=== PATIENT | male | born 1965 ===

== ENCOUNTER → 2020-01-10 15:44 | Outpatient (BNVA) | payer OTHER, SELFPAY | PROVIDERS: PCP Internal Medicine; Referring Provider Internal Medicine; Visit Provider Nurse Practitioner | DX: Z76.89 Persons encountering health services in other specified circumstances (principal) ==

== ENCOUNTER 2020-01-12 09:40 | Outpatient (REF) | payer OTHER, SELFPAY ==
[2020-01-12 10:23] LABS: MANUAL DIFF FLAG NO
[2020-01-12 10:43] LABS: Basophils Percent Auto 0.5 % (0-2); Eosinophils Absolute Auto 0.1 X10*3/uL (0.0-0.4); Eosinophils Percent Auto 1.6 % (0-4); Hematocrit 44.1 % (42-52); Hemoglobin 15.1 g/dl (14.0-18.0); Imm Gran Abs Auto 0.02 X10*3/uL (0.00-0.03); Imm Gran Pct Auto 0.3 % (0.0-0.4); Lymphocytes Absolute Auto 1.7 X10*3/uL (1.2-4.9); Lymphocytes Percent Auto 27.6 % (20-40); Mean Corpuscular HGB Conc 34.2 g/dl (31.0-36.0); Mean Corpuscular Hemoglobin 28.4 pg (27.0-33.0); Mean Corpuscular Volume 83.1 fL (80-98); Mean Platelet Volume 11.2 fL (9.4-12.4); Monocytes Absolute Auto 0.6 X10*3/uL (0.1-1.2); Neutrophils Absolute Auto 3.7 X10*3/uL (2.0-8.3); Platelet Count 245 X10*3/uL (160-400); Red Blood Count 5.31 X10*6/uL (4.60-5.80); Red Cell Distribution Width 13.1 % (11.0-16.0); White Blood Count 6.1 X10*3/uL (4.8-10.8)
[2020-01-12 11:09] LABS: Alanine Aminotransferase 22 U/L (0-40); Albumin Level 3.7 g/dL (3.5-5.0); Alkaline Phosphatase 84 U/L (39-117); Anion Gap 10 (12-20); Aspartate Amino Transferase 15 U/L (5-37); Bilirubin Total 0.5 mg/dL (0.0-1.0); Blood Urea Nitrogen 16 mg/dL (9-16); Calcium 8.2 mg/dL (8.4-10.2); Carbon Dioxide 25 mmol/L (22-29); Chloride 108 mmol/L (96-108); Estimated Glomerular Filt Rate > 60; Glucose Random 106 mg/dL (60-115); Potassium 4.1 mmol/l (3.3-5.1); Sodium 139 mmol/L (135-145); Total Protein 6.5 g/dL (6.5-8.0)
== END 2020-01-12 09:41 | disposition home or self-care (01) ==
LOC: HO.LAB 09:40
PROVIDERS: PCP Internal Medicine; Visit Provider Nurse Practitioner
DX: Z12.11 Encounter for screening for malignant neoplasm of colon (principal)
CPT/HCPCS: 36415; 80053; 85025

== ENCOUNTER 2020-03-24 09:19 | Day surgery (SDC) | payer OTHER, SELFPAY ==
[2020-03-18 13:56] VITALS: BMI 31.4
--- NOTE | 2020-03-21 10:18 | HO.ANESPROP2 ---
HPI - Anesthesia Eval Consult details Narrative: 54yo M for Colonoscopy PMFSH Past Medical History Medical History Allergic rhinitis Anxiety Asthma COVID-19 virus detected Elevated cholesterol GERD (gastroesophageal reflux disease) Sleep apnea Family History Family History Father No problems noted. Mother History of pancreatic cancer Surgical History Surgical History History of colonoscopy Hx of endoscopy Social History Social History Alcohol intake: current Alcohol intake frequency: holidays/special occasions only Smoking Status: Never smoker Meds Allergies Allergy/AdvReac Type Severity Reaction Status Date / Time carrot Allergy Intermediate Altered Verified 03/24/20 09:56 Sense of Taste flour Allergy Intermediate Itching Uncoded 03/18/20 14:04 SEASONAL ALLERGIES Allergy Mild HIVES Uncoded 11/22/19 17:11 Home Medications Medication Instructions Recorded Confirmed Type albuterol sulfate [ProAir HFA] 2 puff PO Q4-6H PRN 03/18/20 03/18/20 History omeprazole 1 cap PO DAILY PRN 03/18/20 03/18/20 History Exam Exam Date and Time: March 21, 2020 1018 Height,Weight and Vital Signs: Height 5 ft 5 in Weight 85.729 kg Pertinent Lab Results Pertinent Lab Results: Laboratory Tests 01/12/20 01/12/20 10:10 10:10 WBC 6.1 Hgb 15.1 Hct 44.1 Plt Count 245 Sodium 139 Potassium 4.1 Chloride 108 Carbon Dioxide 25 BUN 16 Creatinine 0.93 Assessment and Plan Assessment Anesthesia Assessment: Chart Reviewed
--- NOTE | 2020-03-24 09:46 | P.CONAN_ITS ---
[facility] Past Medical History Medical History Allergic rhinitis Anxiety Asthma COVID-19 virus detected Elevated cholesterol GERD (gastroesophageal reflux disease) Sleep apnea Family History Family History Father No problems noted. Mother History of pancreatic cancer Surgical History Surgical History History of colonoscopy Hx of endoscopy Social History Social History Alcohol intake: current Alcohol intake frequency: holidays/special occasions only Smoking Status: Never smoker Use of substances other than those prescribed or required for medical reasons: No Advance Directives Information Provided: No Recently lost weight without trying: No Meds Allergies Allergy/AdvReac Type Severity Reaction Status Date / Time carrot Allergy Intermediate Altered Verified 03/24/20 09:56 Sense of Taste flour Allergy Intermediate Itching Uncoded 03/18/20 14:04 SEASONAL ALLERGIES Allergy Mild HIVES Uncoded 11/22/19 17:11 Home Medications Medication Instructions Recorded Confirmed Type albuterol sulfate [ProAir HFA] 2 puff PO Q4-6H PRN 03/18/20 03/18/20 History omeprazole 1 cap PO DAILY PRN 03/18/20 03/18/20 History Exam Exam Date and Time: March 24, 2020 0946 Height,Weight and Vital Signs: Height 5 ft 5 in Weight 85.729 kg Airway Mallampati Class: II TM Dist: >3cm Neck ROM: Full Heart: RRR Lungs: CTA
[2020-03-24 10:00] VITALS: BP 125/89; PULSE 67; RESP 18; TEMP 36.4; O2SAT 96
--- NOTE | 2020-03-24 10:02 | MHC.SHP ---
Pre-Procedural Eval Section B Chief Complaint: screening Relevant Family History (Specify if Yes): No Relevant Social History: None Present Medications: see Short Stay Collaborative assessment Medical History: Significant History (Allergic rhinitis Anxiety Asthma COVID-19 virus detected Elevated cholesterol GERD (gastroesophageal reflux disease) Sleep apnea) History of Previous Operations: Relevant previous surgery/procedure and date(s) (endoscopy) Allergies: Allergies Allergy/AdvReac Type Severity Reaction Status Date / Time carrot Allergy Intermediate Altered Verified 03/24/20 09:56 Sense of Taste flour Allergy Intermediate Itching Uncoded 03/18/20 14:04 SEASONAL ALLERGIES Allergy Mild HIVES Uncoded 11/22/19 17:11 Review of Systems Sugical H&P ROS: Negative: Constitution, Cardiovascular, Respiratory, Neurological, Psychiatric, Hem-Onc, Allergic/Immunologic, Gastrointestinal, Genitourinary, Musculoskeletal, Integumentary, Endocrine and Eyes/Ears/Nose/Throat Exam Surgical H&P Exam: Normal: HEENT, Normal: Heart, Normal: Lungs, Normal: Extremities, Normal: Abdomen, Normal: Skin and Normal: Neurological Plan Diagnosis/Plan: Unchanged I have reviewed the history and physical and performed a pertinent physical examination on my patient. No changes have occurred unless specified.
--- NOTE | 2020-03-24 10:03 | PM.OP ---
Brief Operative Note Date of Service: 03/24/20 Pre-op diagnosis: colon screen Post-op diagnosis: same Procedure: see op note Surgeon: Lily Colvin MD Anesthesia: MAC Estimated blood loss (mL): 0 Condition: stable Disposition: PACU
--- NOTE | 2020-03-24 10:04 | W.PM.OPN ---
Operative Note Operative Note Date of Service: 03/24/20 Narrative: Operative Information Procedure Description: Colonoscopy COLONOSCOPY Instrument: Olympus variable stiffness pediatric scope 190L Colonoscopy Monitoring: Vital signs and clinical assessment, continuous EKG monitoring, Pulse oximetry, Carbon Dioxide monitoring and blood pressure monitoring were done throughout the procedure. Colon withdrawal time was 7 minutes. Procedure: The patient was placed in the left lateral decubitis position and pre-procedure medications were administered. After a digital rectal examination of the ano-rectum, the video colonoscope was inserted into the rectum and advanced through the colon to the cecum/TI. The colonoscope was slowly withdrawn in a retrograde panoramic fashion and the colon mucosa was carefully examined including a retroflexed view of the rectum. Findings and interventions are described below. Procedure Difficulty:easy Findings: Terminal Ileum-normal Cecum:normal Ascending Colon: normal Transverse Colon -normal Descending Colon:normal Sigmoid Colon: normal Rectum: Retroflexion with small internal hemorrhoids, grade II Anorectum - internal hemorrhoids seen on forward view at verge Colon preparation: [place] Bowel Preparation Scale Right colon; 1 Transverse colon: 2 Left colon; 3 (0 = Unprepared colon segment with mucosa not seen due to solid stool that cannot be cleared. 1 = Portion of mucosa of the colon segment seen, but other areas of the colon segment not well seen due to staining, residual stool and/or opaque liquid. 2 = Minor amount of residual staining, small fragments of stool and/or opaque liquid, but mucosa of colon segment seen well. 3 = Entire mucosa of colon segment seen well with no residual staining, small fragments of stool or opaque liquid) Impression and Post Procedure Diagnosis: internal hemorrhoids Plan: High fiber diet leaflet Avoid straining at stool, epsom salts and sitz bath, anusol supps or cream prn Repeat Colonoscopy in 5-6 years due to prep on right side or earlier if clinically indicated Above findings were reviewed with the patient and relevant handouts were provided if indicated.
[2020-03-24] MEDS: Lactated Ringers 1,000 ML 100 ML IVCONT (10:12)
[2020-03-24 10:46] VITALS: BP 106/72; PULSE 73; RESP 16; TEMP 37.2; O2SAT 97
--- NOTE | 2020-03-24 10:56 | HO.POSTANES ---
Post Anesthesia Evaluation Post Anesthesia Evaluation Vital Signs: Vital Signs Temp Pulse Resp BP Pulse Ox 03/24/20 10:46 98.9 F 73 16 106/72 97 03/24/20 10:00 97.6 F 67 18 125/89 96 Anesthesia: Monitored Mental Status: Awake Pain Control: Satisfactory Nausea/Vomiting: None Hydration: Adequate Anesthesia-Related Issues: No Anes. Related Issues
[2020-03-24 11:01] VITALS: BP 127/86; PULSE 71; RESP 17; TEMP 37.2; O2SAT 96
== END 2020-03-24 11:21 | disposition home or self-care (01) ==
PROVIDERS: PCP Internal Medicine; Visit Provider Internal Medicine Gastroenterology
PROC: 0DJD8ZZ Inspection of Lower Intestinal Tract, Via Natural or Artificial Opening Endoscopic (ICD-10-PCS; CPT 45378; principal; 2020-03-24 10:30)
DX: Z12.11 Encounter for screening for malignant neoplasm of colon (principal); K64.1 Second degree hemorrhoids; J45.909 Unspecified asthma, uncomplicated; G47.33 Obstructive sleep apnea (adult) (pediatric); Z79.899 Other long term (current) drug therapy; Z99.89 Dependence on other enabling machines and devices; Z86.16 Personal history of COVID-19
CPT/HCPCS: 45378

== ENCOUNTER → 2020-04-22 14:06 | Outpatient (BNVA) | payer OTHER, SELFPAY | PROVIDERS: PCP Internal Medicine; Visit Provider Nurse Practitioner ==

== ENCOUNTER 2022-01-01 18:09 | Emergency (ER) | payer OTHER, SELFPAY ==
[2022-01-01 18:14] VITALS: BP 126/83; PULSE 60; RESP 20; TEMP 36.4; O2SAT 98; BMI 28.3
--- NOTE | 2022-01-01 18:58 | ED_ITS ---
HPI - General Adult General Chief complaint: General Medical Stated complaint: mouth pain Time Seen by Provider: 01/01/22 18:58 Source: patient Mode of arrival: ambulatory Limitations: no limitations History of Present Illness HPI narrative: Patient is a 56 year old assigned male at with no reported medical history presenting to the emergency department today with left sided mouth pain. Patient states that he had a root canal on Tuesday and ever since, he has had left sided mouth pain under his tongue. Patient denies any dizziness, lightheadedness, abdominal pain, nausea, vomiting, fever, chills, blurry vision, double vision, loss of vision, chest pain, difficulty breathing, shortness of breath, back pain, night sweats, pain with urination, increased urinary frequency, increased urinary urgency, blood in his urine or stool, syncope or a near syncopal episode, recent trauma or falls, bowel incontinence, bladder incontinence, bowel retention, bladder retention, or any other complaints at this time. Onset (ago): day(s) (4) Location: mouth Radiation: non-radiation Severity: mild Severity scale (1-10): 3 Quality: aching and dull Pain Consistency: constant Relieving factors: none Exacerbating factors: none Associated symptoms: denies other symptoms Treatments prior to arrival: none Related Data Home Medications Medication Instructions Recorded Confirmed albuterol sulfate 90 mcg/actuation 2 puff PO Q4-6H PRN Shortness Of 03/18/20 03/18/20 aerosol inhaler (ProAir HFA) Breath omeprazole 20 mg capsule,delayed 1 cap PO DAILY PRN Heartburn 03/18/20 03/18/20 release Previous Rx's Medication Instructions Recorded peg 3350-electrolytes 236 240 ml PO Q10M #4,000 mL 01/10/20 gram-22.74 gram-6.74 gram-5.86 gram solution (Golytely) hydrocortisone 2.5 % topical cream 1 appl ID BID PRN hemorrhoids #30 04/22/20 with perineal applicator grams (Proctosol HC) Allergies Allergy/AdvReac Type Severity Reaction Status Date / Time carrot Allergy Intermediate Altered Verified 04/22/20 14:06 Sense of Taste flour Allergy Intermediate Itching Uncoded 03/18/20 14:04 SEASONAL ALLERGIES Allergy Mild HIVES Uncoded 11/22/19 17:11 Review of Systems Constitutional: Constitutional: Reports no additional constitutional complaints, Denies chills, Denies fever(s) and Denies night sweats Eyes: Eyes: Reports no additional eye complaints, Denies blurry vision, Denies change in vision, Denies diplopia, Denies eye discharge, Denies loss of vision and Denies eye pain ENT: Denies dizziness Comments: left sided mouth pain Cardiovascular: Cardiovascular: Reports no additional cardiovascular complaints, Denies chest pain, Denies lightheadedness, Denies Loss of Consciousness and Denies dyspnea Respiratory: Respiratory: Reports no additional respiratory complaints and Denies dyspnea Gastrointestinal: Gastrointestinal: Reports no additional gastrointestinal complaints, Denies abdominal pain, Denies melena, Denies hematochezia, Denies change in bowel habits and Denies change in stool character Genitourinary: Genitourinary: Reports no additional male genitourinary complaints, Denies hematuria, Denies oliguria, Denies difficulty urinating, Denies dysuria, Denies urinary frequency, Denies urinary hesitancy, Denies urinary incontinence and Denies urinary urgency Musculoskeletal: Musculoskeletal: Reports no additional musculoskeletal complaints, Denies numbness and Denies tingling Neurologic: Denies dizziness, Denies loss of vision, Denies numbness and Denies tingling Psychiatric: Psychiatric: Reports no additional psychiatric complaints Endocrine: Endocrine: Reports no additional endocrine complaints Hematologic/Lymphatic: Hematologic/Lymphatic: Reports no additional hematologic/lymphatic complaints Allergic/Immunologic: Allergic/Immunologic: Reports no additional allergic/immunologic complaints [facility] Past Medical History Attestation statement: The following information was validated with the patient. Source: old records reviewed Medical History (Updated 01/01/22 @ 19:17 by JENNIFER Canchola) Allergic rhinitis Anxiety Asthma COVID-19 virus detected Elevated cholesterol GERD (gastroesophageal reflux disease) Sleep apnea Surgical History History of colonoscopy Hx of endoscopy Family History Family History Father No problems noted. Mother History of pancreatic cancer Social History Social History Alcohol intake: current Alcohol intake frequency: holidays/special occasions only Advance Directives: No Advance Directives Information Provided: No Physical Exam ED Vital Signs: Vital Signs - 24 hr 01/01/22 18:14 Temperature 97.6 F Pulse Rate 60 Respiratory Rate 20 Blood Pressure 126/83 Pulse Oximetry 98 Oxygen Delivery Method Room Air BMI result Body Mass Index 28.3 Const General: cooperative, no acute distress, alert and awake Nutritional Appearance: well nourished Orientation/consciousness: patient oriented x3 Limitations: no limitations HENMT Head: Yes normal to inspection and Yes atraumatic Ears: hearing grossly normal bilaterally and external ears normal General nose exam: Normal external nose present, no nasal discharge noted and no epistaxis Face and sinus: Yes normal facial exam, No abrasion and No laceration Mouth: Normal oral and palatal mucosa present, no drooling, no muffled voice and other (swollen salivary duct felt in left lower mouth) Eyes General: appearance normal, both eyes and all related structures Periorbital: periorbital findings normal Eyelids: Yes eyelids normal Conjunctivae: conjunctivae normal Pupils: Equal, round and reactive pupils present EOM: EOMs intact bilaterally Neck Neck: Yes normal visual inspection, Yes full ROM and Yes no lymphadenopathy Chest Chest palpation & inspection: normal inspection of the chest Resp Effort & Inspection: normal respiratory effort and able to speak in complete sentences Auscultation: clear to auscultation bilaterally Cardio Rate: regular rate Rhythm: regular rhythm GI Inspection: Yes normal to inspection Neuro General: patient oriented x3 and moves all extremities Cranial nerves: Yes Equal, round and reactive pupils present Cognition (Neuro): normal cognition Motor exam (neuro): 5/5 motor strength present throughout Sensory Exam: Normal double simultaneous stimulation for sensation Coordination: [id number] test normal Extrem General: Yes normal to inspection, Yes full ROM and Yes capillary refill normal Psych Appearance: grossly normal Mental Status: mental status grossly normal Affect: normal affect Attitude: cooperative Thought process: Normal thought process present Thought content: Normal thought content present Insight: Good insight present (Psych) Medical Decision Making MDM Narrative Medical decision making narrative: Patient is a 56 year old assigned male at with no reported medical history presenting to the emergency department today with left sided mouth pain. Patient's physical exam showed a swollen salivary duct in the left lower mouth, not big enough to manually express. Patient's current clinical presentation is most consistent with a salivary duct / parotid duct obstruction vs. stone. I explained my physical exam findings to the patient. I answered all questions asked by the patient. I stressed the importance of the patient taking his medication as prescribed. I stressed the importance of the patient sucking on sour candies. I stressed the importance of the patient following up with his primary care provider and a dentist. I stressed the importance of the patient returning to the emergency department immediately if his symptoms were to worsen or if he were to develop any dizziness, shortness of breath, difficulty breathing, chest pain, blurry vision, loss of vision, nausea, vomiting, ab dominal pain, fever, chills, back pain, or any other complaints. Patient verbalized agreement and understanding with this treatment plan and discharge. Medical Records Medical records reviewed: Yes I reviewed the patient's medical records. Discharge Plan Discharge Clinical Impression: Salivary duct stone Patient Disposition: Home, Self-Care Instructions: Parotid Duct Obstruction (ED) Additional Instructions: Suck on very sour hard candy. Follow up with your primary care provider. Return to the emergency department immediately if your symptoms worsen or if you develop any dizziness, shortness of breath, difficulty breathing, chest pain, bl urry vision, loss of vision, nausea, vomiting, abdominal pain, fever, chills, back pain, or any other complaints. Prescriptions: No Action omeprazole 20 mg capsule,delayed release(DR/EC) 1 cap PO DAILY PRN (Reason: Heartburn) albuterol sulfate [ProAir HFA] 90 mcg/actuation HFA aerosol inhaler 2 puff PO Q4-6H PRN (Reason: Shortness Of Breath) peg 3350-electrolytes [Golytely] 236-22.74-6.74 -5.86 gram recon soln 240 ml PO Q10M Qty: 4000 0RF Rx Instructions: until fecal effluent is clear; do not exceed a total volume of 2,000 mL hydrocortisone [Proctosol HC] 2.5 % cream with perineal applicator 1 appl ID BID PRN (Reason: hemorrhoids) Qty: 30 3RF Referrals: [facility] [place] Family Medicine [Provider Group] (Call to establish and follow up with a primary care provider. If you already have a primary care provider, please follow up with them. ) [facility] [place] Primary [facility] [Provider Group] (Call to establish and follow up with a primary care provider. If you already have a primary care provider, please follow up with them. ) [facility] [place] Primary Care[facility] [Provider Group] (Call to establish and follow up with a primary care provider. If you already have a primary care provider, please follow up with them. ) Stand Alone Forms: Work/School Release Interventions: ED Discharge Assessment Last Done: 01/01/22 19:39 Discharge Date/Time: 01/01/22 19:42 Print Language: Serbian
== END 2022-01-01 19:42 | disposition home or self-care (01) ==
PROVIDERS: Emergency Provider Emergency Medicine Emergency Medical Services; PCP Internal Medicine
DX: K11.5 Sialolithiasis (principal); K13.79 Other lesions of oral mucosa
CPT/HCPCS: 99282

== ENCOUNTER 2022-08-21 19:47 | Emergency (ER) | payer OTHER, SELFPAY ==
--- NOTE | ~2022-08-21 | CT_ITS ---
EXAMINATION: CT ABDOMEN AND PELVIS WITHOUT CONTRAST CLINICAL INFORMATION: Left flank pain, hematuria. COMPARISON: Abdominal ultrasound 09/04/2009. TECHNIQUE: Multidetector volumetric imaging was performed from the superior aspect of the liver through the pubic symphysis. Sagittal and coronal reformatted images were obtained on the technologist's workstation. This CT examination was performed using dose optimization techniques as appropriate, variously including the following: *Automated exposure control *Adjustment of mA and/or kV according to patient size (this includes techniques or standardized protocols for targeted exams where dose is matched to indication/reason for exam; i.e. extremities or head) *Use of iterative reconstruction technique DLP: 543 mGy-cm FINDINGS: The lack of intravenous contrast limits evaluation of the solid visceral organs including the liver, spleen, pancreas, and kidneys. LUNG BASES: There is a 0.6 cm right middle lobe pulmonary nodule image 29 series 4. No focal consolidation or pleural effusion. LIVER, GALLBLADDER, AND BILIARY TREE: Multiple liver cysts with several additional too small to characterize liver hypodensities. The liver is normal in size, shape and attenuation. Partially calcified gallbladder calculus in the neck measuring 2 cm. No significant pericholecystic fat stranding or free fluid. No biliary ductal dilatation. PANCREAS: Limited noncontrast examination. No peripancreatic free fluid or fat stranding. SPLEEN: Unremarkable. ADRENAL GLANDS: Unremarkable. KIDNEYS AND URETERS: No hydronephrosis or nephrolithiasis. No perivesical fat stranding. BLADDER: Diffuse urinary bladder wall thickening. GASTROINTESTINAL TRACT: The stomach and the small bowel are nondilated. Normal appendix. No pericolonic inflammatory changes or evidence of bowel obstruction. Fecalization of the small bowel. Moderate degree of colonic stool content. ABDOMINAL WALL: Small fat-containing left-sided inguinal hernia. LYMPH NODES: No lymphadenopathy. VASCULAR: Limited noncontrast examination. Normal caliber of the abdominal aorta. PELVIC VISCERA: Enlarged prostate. OSSEOUS STRUCTURES: Degenerative changes of the spine. No acute or aggressive appearing osseous abnormalities. CT/CT abdomen pelvis wo IV con IMPRESSION: 1. No nephrolithiasis or hydronephrosis. 2. Diffuse urinary bladder wall thickening, correlate clinically for cystitis. 3. Enlarged prostate. 4. Fecalization of the small bowel and moderate volume of stool in the colon suggesting slow transit and constipation. 5. Cholelithiasis but no evidence of acute cholecystitis. 6. Liver cysts admixed with too small to characterize hypodensities, statistically also favoring to represent simple cysts. If the patient presents high risk factors for malignancy, further evaluation with an and abdominal MRI could be obtained as clinically indicated. 7. Indeterminate 0.6 cm right middle lobe pulmonary nodule. Assuming patient has no history of malignancy, recommend follow-up per Fleischner Society recommendations. According to the UPDATED 2017 Fleischner Society recommendations, the advised followup imaging for a single 6-8 mm solid nodule is: LOW RISK PATIENT: CT at 6-12 months, then consider CT at 18-24 months. HIGH RISK PATIENT: CT at 6-12 months, then at 18-24 months. Fleischner guidelines were followed.
[2022-08-21 19:47] VITALS: BP 147/92; PULSE 84; RESP 18; TEMP 36.6; O2SAT 97; BMI 28.3
--- NOTE | 2022-08-21 19:48 | ED.GENADULT ---
HPI - General Adult General Chief complaint: Urogenital-Male Stated complaint: bleeding in urine Time Seen by Provider: 08/21/22 20:47 Source: patient Mode of arrival: ambulatory Limitations: no limitations History of Present Illness HPI narrative: Patient comes emergency room complaining of 1 episode of hematuria. Patient states that earlier today, patient had 1 episode of painless hematuria. At this time, patient is asymptomatic. Patient denies abdominal pain or flank pain at this time. Patient states that he has noted a bit of right-sided back pain but is mild. Patient unsure if it is flank pain. Patient states that it usually happens after eating. Denies any right upper quadrant pain. Denies fever and chills Related Data Home Medications Medication Instructions Recorded Confirmed albuterol sulfate 90 mcg/actuation 2 puff PO Q4-6H PRN Shortness Of 03/18/20 03/18/20 aerosol inhaler (ProAir HFA) Breath omeprazole 20 mg capsule,delayed 1 cap PO DAILY PRN Heartburn 03/18/20 03/18/20 release Previous Rx's Medication Instructions Recorded peg 3350-electrolytes 236 240 ml PO Q10M #4,000 mL 01/10/20 gram-22.74 gram-6.74 gram-5.86 gram solution (Golytely) hydrocortisone 2.5 % topical cream 1 appl [place] BID PRN hemorrhoids #30 04/22/20 with perineal applicator grams (Proctosol HC) levofloxacin 500 mg tablet 500 mg PO DAILY #9 tabs 08/21/22 Allergies Allergy/AdvReac Type Severity Reaction Status Date / Time carrot Allergy Intermediate Altered Verified 04/22/20 14:06 Sense of Taste flour Allergy Intermediate Itching Uncoded 03/18/20 14:04 SEASONAL ALLERGIES Allergy Mild HIVES Uncoded 11/22/19 17:11 Review of Systems Review of Systems: Constitutional : No Weight loss, No Fever, No Chills, No Night Sweats, No Fatigue, No Malaise ENT/Mouth : No Hearing loss, No Ear Pain, No Nasal Congestion, No Sinus Pain, No Hoarseness, No sore throat, No Rhinorrhea, No Swallowing Difficulty Eyes: No Eye Pain, No Swelling, No Redness, No Foreign Body, No Discharge, No Vision Changes Cardiovascular : No Chest Pain, No SOB, No Dyspnea on Exertion, No Orthopnea, No Edema, No Palpitations Respiratory : No Cough, No Sputum, No Wheezing, No Smoke Exposure, No Dyspnea Gastrointestinal : No Nausea, No Vomiting, No Diarrhea, No Constipation, No abdominal Pain, No Hematochezia, No Melena Genitourinary :No Dysuria, No Urinary Frequency, complaining of Hematuria, No Urinary Incontinence, No Urgency, complaining of mild right-sided Flank Pain, No Urinary Flow Changes, No Hesitancy Musculoskeletal : No joint pain, No Myalgias, No Joint Swelling Skin : No Skin Lesions, No rash Neuro : No Weakness, No Numbness, No Paresthesias, No Loss of Consciousness, No Dizziness, No Headache Psych : No Anxiety/Panic, No Depression, No SI/HI/AH/VH, No Social Issues, Heme/Lymph: No Bruising, No Bleeding,No Lymphadenopathy Endocrine : No Polyuria, No Polydipsia, No Temperature Intolerance [facility] Past Medical History Medical History Allergic rhinitis Anxiety Asthma COVID-19 virus detected Elevated cholesterol GERD (gastroesophageal reflux disease) Sleep apnea Surgical History History of colonoscopy Hx of endoscopy Family History Family History Father No problems noted. Mother History of pancreatic cancer Social History Social History Alcohol intake: current Alcohol intake frequency: holidays/special occasions only Advance Directives: No Advance Directives Information Provided: No Physical Exam ED Vital Signs: Vital Signs - 24 hr 08/21/22 19:47 Temperature 98 F Pulse Rate 84 Respiratory Rate 18 Blood Pressure 147/92 H Pulse Oximetry 97 Oxygen Delivery Method Room Air BMI result Body Mass Index 28.3 Const Other: Appearance: Alert. Oriented X3. No acute distress. Eyes: Pupils equal, round and reactive to light. ENT: Pharynx normal. Neck: Normal inspection. Neck supple. No lymph nodes noted. No crepitus CVS: Normal heart rate and rhythm. Pulses normal. Normal S1 and S2 Respiratory: No respiratory distress. Breath sounds normal. No Wheezing. No rales Abdomen: Soft and nontender. No rigidity. No distention. Skin: Skin warm and dry. Normal skin color. Normal skin turgor. Extremities: No lower extremity edema. No Lacerations. No Rash Neuro: Oriented X 3. No motor deficit. No sensory deficit. Moving all extremities. No slurred speech. CN 2 through 12 grossly intact Psych: calm, cooperative, normal affect Course Course Course Narrative: This is an RME: Additional HPI, ROS, PE not included below will be deferred to primary provider. 57-year-old male presents with blood in urine, 1 episode prior to arrival, reports large amount of blood. Denying any pain at this time. Denies urinary frequency, urgency, dysuria, fevers, chills, flank pain, nausea, vomiting, abdominal pain, headache, vision changes, chest pain and shortness of breath. Patient anxious appearing Plan basic labs, UA Medical Decision Making Medical Decision Making [facility] Narrative: -I discussed the CT scan with the patient, patient likely has cystitis, possibly a mild UTI. Given the patient's presentation, we will go ahead and treat for UTI. -patient instructed to follow up with Urology, patient may need a biopsy if the hematuria does not resolve. -also, I discussed with the patient that he has nodules/cysts in the lungs and liver, from the CT scan they seem to be benign. However, discussed with the patient he needs very close follow-up with his primary care physician, as patient may need an MRI. Patient understands the importance of following up with his primary care physician. -patient was given the 1st dose of levofloxacin in the emergency room Lab Data [facility] Lab Attestation statement: I reviewed the patient's lab results. 08/21/22 20:23 08/21/22 20:23 Labs: Lab Results 08/21/22 08/21/22 08/21/22 Range/Units 20:23 20:23 20:23 WBC 6.9 (4.8-10.8) X10*3/uL RBC 5.31 (4.60-5.80) X10*6/uL Hgb 14.8 (14.0-18.0) g/dl Hct 43.8 (42.0-52.0) % MCV 82.5 (80.0-98.0) fL MCH 27.9 (27.0-33.0) pg MCHC 33.8 (31.0-36.0) g/dl RDW 12.8 (11.0-16.0) % Plt Count 250 (160-400) X10*3/uL MPV 10.4 (9.4-12.4) fL Immature Gran % (Auto) 0.1 (0.0-0.4) % Neut % (Auto) 53.5 (45-73) % Lymph % (Auto) 32.9 (20-40) % [place] % (Auto) 10.8 (2-11) % Eos % (Auto) 2.0 (0-4) % Baso % (Auto) 0.7 (0-2) % Lymph # (Auto) 2.3 (1.2-4.9) X10*3/uL [place] # (Auto) 0.8 (0.1-1.2) X10*3/uL Eos # (Auto) 0.1 (0.0-0.4) X10*3/uL Baso # (Auto) 0.1 (0.0-0.2) X10*3/uL Abs Immat Gran (auto) 0.01 (0.00-0.03) X10*3/uL Absolute Neuts (auto) 3.7 (2.0-8.3) x10*3/uL Absolute Nucleated RBC 0.000 (0.0-0.012) X10*3/uL Nucleated RBC % (auto) 0.0 (0.0-0.2) /100WBC Sodium 138 (135-145) mmol/L Potassium 3.7 (3.3-5.1) mmol/L Chloride 107 (96-108) mmol/L Carbon Dioxide 22 (22-29) mmol/L Anion Gap 13 (12-20) BUN 18 H (9-16) mg/dL Creatinine 1.01 (0.5-1.4) mg/dL Estim Creat Clear Calc 78.2 Estimated GFR > 60 Random Glucose 96 (60-115) mg/dL Calcium 9.6 D (8.4-10.2) mg/dL Magnesium 2.0 (1.6-2.6) mg/dL Total Bilirubin 0.4 (0.0-1.0) mg/dL AST 15 (5-37) U/L ALT 17 (0-40) U/L Alkaline Phosphatase 83 (39-117) U/L Total Protein 6.6 (6.5-8.0) g/dL Albumin 3.5 (3.5-5.0) g/dL Urine Color Yellow Urine Appearance Clear Urine pH 5.5 (5.0-9.0) Ur Specific [place] 1.025 (1.005-1.025) Urine Protein Trace (Neg-Trace) mg/dL Urine Glucose (UA) Negative (Negative) mg/dL Urine Ketones Trace (Negative) mg/dL Urine Blood Large (3+) H (Negative) Urine Nitrite Negative (Negative) Ur Leukocyte Esterase Trace H (Negative) Urine RBC >20 H (0-2) /HPF Urine WBC 0-5 (0-5) /HPF Ur Squamous Epith Cells 0-2 (0-2) /HPF Urine Bacteria None Seen (None Seen) Hyaline Casts 0-2 (0-2) /LPF Radiology Impression Discussion of test interpretation with radiology: I have reviewed the radiologist's reading. Radiologist Impression: FINDINGS: The lack of intravenous contrast limits evaluation of the solid visceral organs including the liver, spleen, pancreas, and kidneys. LUNG BASES: There is a 0.6 cm right middle lobe pulmonary nodule image 29 series 4. No focal consolidation or pleural effusion.? LIVER, GALLBLADDER, AND BILIARY TREE: Multiple liver cysts with several additional too small to characterize liver hypodensities. The liver is normal in size, shape and attenuation. Partially calcified gallbladder calculus in the neck measuring 2 cm. No significant pericholecystic fat stranding or free fluid. No biliary ductal dilatation.? PANCREAS: Limited noncontrast examination. No peripancreatic free fluid or fat stranding.? SPLEEN: Unremarkable.? ADRENAL GLANDS: Unremarkable.? KIDNEYS AND URETERS: No hydronephrosis or nephrolithiasis. No perivesical fat stranding.? BLADDER: Diffuse urinary bladder wall thickening.? GASTROINTESTINAL TRACT: The stomach and the small bowel are nondilated. Normal appendix. No pericolonic inflammatory changes or evidence of bowel obstruction. Fecalization of the small bowel. Moderate degree of colonic stool content.? ABDOMINAL WALL: Small fat-containing left-sided inguinal hernia.? LYMPH NODES: No lymphadenopathy. VASCULAR: Limited noncontrast examination. Normal caliber of the abdominal aorta. PELVIC VISCERA: Enlarged prostate.? OSSEOUS STRUCTURES: Degenerative changes of the spine. No acute or aggressive appearing osseous abnormalities.? CT/CT abdomen pelvis wo IV con IMPRESSION: 1.? No nephrolithiasis or hydronephrosis. 2.? Diffuse urinary bladder wall thickening, correlate clinically for cystitis. 3.? Enlarged prostate. 4.? Fecalization of the small bowel and moderate volume of stool in the colon suggesting slow transit and constipation. 5.? Cholelithiasis but no evidence of acute cholecystitis. 6.? Liver cysts admixed with too small to characterize hypodensities, statistically also favoring to represent simple cysts. If the patient presents high risk factors for malignancy, further evaluation with an and abdominal MRI could be obtained as clinically indicated. 7.? Indeterminate 0.6 cm right middle lobe pulmonary nodule. Assuming patient has no history of malignancy, recommend follow-up per Fleischner Society recommendations. According to the UPDATED 2017 Fleischner Society recommendations, the advised followup imaging for a single 6-8 mm solid nodule is: LOW RISK PATIENT: CT at 6-12 months, then consider CT at 18-24 months. HIGH RISK PATIENT: CT at 6-12 months, then at 18-24 months. ? Fleischner guidelines were followed. Discharge Plan Discharge Clinical Impression: Hematuria, Acute UTI Patient Disposition: Home, Self-Care Instructions: Urinary Tract Infection in Men (ED), Hematuria (ED) Additional Instructions: Please follow-up with your primary care physician tomorrow. You have multiple cysts in lungs and the liver, likely to be benign. However, you need close follow-up with her primary care physician. If you have any worsening or new symptoms, please return to the emergency room or call 911 Prescriptions: New levofloxacin 500 mg tablet 500 mg PO DAILY Qty: 9 0RF No Action omeprazole 20 mg capsule,delayed release(DR/EC) 1 cap PO DAILY PRN (Reason: Heartburn) albuterol sulfate [ProAir HFA] 90 mcg/actuation HFA aerosol inhaler 2 puff PO Q4-6H PRN (Reason: Shortness Of Breath) peg 3350-electrolytes [Golytely] 236-22.74-6.74 -5.86 gram recon soln 240 ml PO Q10M Qty: 4000 0RF Rx Instructions: until fecal effluent is clear; do not exceed a total volume of 2,000 mL hydrocortisone [Proctosol HC] 2.5 % cream with perineal applicator 1 appl [place] BID PRN (Reason: hemorrhoids) Qty: 30 3RF Referrals: Landon Pierson MD [Physician] - 08/23/22
[2022-08-21 20:27] LABS: MANUAL DIFF FLAG NO
[2022-08-21 20:33] LABS: Appearance Urine Clear; Color Urine Yellow; Glucose Urine UA Negative (Negative); Leukocyte Esterase Urine Trace (Negative); Nitrite Urine Negative (Negative); PH 5.5 (5.0-9.0); Specific Gravity - Urine 1.025 (1.005-1.025); UMIC TRIGGER UACC YES; Urine Blood Large (3+) (Negative); Urine Ketones Trace mg/dL (Negative); Urine Protein Trace mg/dL (Neg-Trace)
[2022-08-21 20:34] LABS: Basophils Absolute Auto 0.1 X10*3/uL (0.0-0.2); Basophils Percent Auto 0.7 % (0-2); Eosinophils Absolute Auto 0.1 X10*3/uL (0.0-0.4); Hematocrit 43.8 % (42.0-52.0); Hemoglobin 14.8 g/dl (14.0-18.0); Imm Gran Abs Auto 0.01 X10*3/uL (0.00-0.03); Imm Gran Pct Auto 0.1 % (0.0-0.4); Lymphocytes Absolute Auto 2.3 X10*3/uL (1.2-4.9); Lymphocytes Percent Auto 32.9 % (20-40); Mean Corpuscular HGB Conc 33.8 g/dl (31.0-36.0); Mean Corpuscular Hemoglobin 27.9 pg (27.0-33.0); Mean Corpuscular Volume 82.5 fL (80.0-98.0); Mean Platelet Volume 10.4 fL (9.4-12.4); Monocytes Absolute Auto 0.8 X10*3/uL (0.1-1.2); Monocytes Percent Auto 10.8 % (2-11); Neutrophils Absolute Auto 3.7 x10*3/uL (2.0-8.3); Neutrophils Percent Auto 53.5 % (45-73); Platelet Count 250 X10*3/uL (160-400); Red Blood Count 5.31 X10*6/uL (4.60-5.80); Red Cell Distribution Width 12.8 % (11.0-16.0); White Blood Count 6.9 X10*3/uL (4.8-10.8)
[2022-08-21 20:38] LABS: Bacteria Urine None Seen (None Seen); Hyaline Casts Urine 0-2 /LPF (0-2); RBC Urine >20 /HPF (0-2); Squamous Epithelial Cell Urine 0-2 /HPF (0-2); WBC Urine 0-5 /HPF (0-5)
[2022-08-21 20:50] LABS: Alanine Aminotransferase 17 U/L (0-40); Albumin Level 3.5 g/dL (3.5-5.0); Alkaline Phosphatase 83 U/L (39-117); Anion Gap 13 (12-20); Aspartate Amino Transferase 15 U/L (5-37); Bilirubin Total 0.4 mg/dL (0.0-1.0); Blood Urea Nitrogen 18 mg/dL (9-16); Calcium 9.6 mg/dL (8.4-10.2); Carbon Dioxide 22 mmol/L (22-29); Chloride 107 mmol/L (96-108); Creatinine Clr Calc Pharmacy 78.2; Estimated Glomerular Filt Rate > 60; Glucose Random 96 mg/dL (60-115); Potassium 3.7 mmol/L (3.3-5.1); Sodium 138 mmol/L (135-145); Total Protein 6.6 g/dL (6.5-8.0)
[2022-08-22] MEDS: levoFLOXacin 500 MG TABLET PO (00:36)
[2022-08-22 00:37] VITALS: BP 121/86; PULSE 66; RESP 18; TEMP 36.5; O2SAT 97
--- NOTE | 2022-08-22 00:50 | PC.NURSE ---
pt medicated according to [facility]. pt daughter at bedside at this time. pt reports no pain./ vss. pt ambulatory. pt provided with discharge packet. pt verbalized understanding of discharge plan
== END 2022-08-22 00:52 | disposition home or self-care (01) ==
PROVIDERS: Physician Assistant; Emergency Provider Emergency Medicine; PCP Internal Medicine
DX: N39.0 Urinary tract infection, site not specified (principal); R31.9 Hematuria, unspecified; Z79.899 Other long term (current) drug therapy
CPT/HCPCS: 36415; 74176; 80053; 81001; 83735; 85025; 99284

== ENCOUNTER 2022-09-08 11:06 | Outpatient (REF) | payer OTHER, SELFPAY ==
[2022-09-08 13:06] LABS: Alanine Aminotransferase 27 U/L (0-40); Albumin Level 3.3 g/dL (3.5-5.0); Alkaline Phosphatase 83 U/L (39-117); Anion Gap 12 (12-20); Aspartate Amino Transferase 20 U/L (5-37); Bilirubin Direct 0.2 mg/dL (0.0-0.5); Bilirubin Total 0.5 mg/dL (0.0-1.0); Blood Urea Nitrogen 17 mg/dL (9-16); Calcium 8.8 mg/dL (8.4-10.2); Carbon Dioxide 24 mmol/L (22-29); Chloride 108 mmol/L (96-108); Cholesterol 224 mg/dL; Estimated Glomerular Filt Rate > 60; Glucose Random 98 mg/dL (60-115); HDL Cholesterol 61 mg/dL; LDL Cholesterol Calculated 144 mg/dl; Potassium 3.8 mmol/L (3.3-5.1); Sodium 140 mmol/L (135-145); Total Protein 6.5 g/dL (6.5-8.0); Triglycerides 99 mg/dL
[2022-09-08 13:23] LABS: Vitamin D 25-OH Total 40.1 ng/mL (>30)
== END 2022-09-08 11:07 | disposition home or self-care (01) ==
LOC: HO.LAB 11:06
PROVIDERS: PCP Internal Medicine; Visit Provider Internal Medicine
DX: Z00.00 Encounter for general adult medical examination without abnormal findings (principal); Z20.2 Contact with and (suspected) exposure to infections with a predominantly sexual mode of transmission; E78.5 Hyperlipidemia, unspecified
CPT/HCPCS: 36415; 80048; 80061; 80076; 82306; 83036; 85025; 86803; 87389

== ENCOUNTER 2022-09-23 15:13 | Outpatient (AMB) | payer OTHER, SELFPAY ==
--- NOTE | 2022-09-23 11:20 | A.OFFVIS_ITS ---
Intake Intake Visit Reasons: ED Follow uphematuria/bladder wall thickening Intake Note: NEW Patient presents today to established treatment for Hematuria & Bladder Wall Thickening: Meds- None Allergies to Antibiotic- No Known Allergies Blood Thinner- None PVR- 73ml Seat Builder Required: Yes Seat Builder Language: Voice And Data Technician Name: Aramis Cain, SHADI/DOMINIK Buckley Accompanied by: Self / Same As Patient Allergies carrot Allergy (Intermediate, Verified 10/20/22 14:13) Altered Sense of Taste flour Allergy (Intermediate, Uncoded 10/20/22 14:13) Itching SEASONAL ALLERGIES Allergy (Mild, Uncoded 10/20/22 14:13) HIVES HPI HPI Comments History of Present Illness Details Jose Maria is a 57-year-old male who presents today to the office as a new patient evaluation for hematuria and bladder wall thickening. 09/23/2022-- The patient is a 57-year-old canadian speaking male. Certified drafter landscape was present during the visit. The patient was seen in the ED on 08/21/22 with a complaint of hematuria. He states that he had acute episode of having a flushed feeling and a strong urge to use the bathroom. When he urinated, there was blood in the urine and it felt like a pressure was being released with the urination that was different sensation than he normally gets when he urinates. He increased his fluids and had persistent blood in the urine for the next few voids. So, he went to the emergency room. Once he got to the emergency room, he stated there was no visible blood in the urine. I did review the emergency room records. He was discharged on Levaquin. I did not see a urine culture sent. It is unclear if he had any UTI; however, he denies any pain associated with the episodes. I have discussed reasons for blood in the urine may include but are not limited to kidney stones, cancer in the urinary tract, BPH, kidney stone disease or inflammatory conditions of the urinary tract. Results reviewed: CAT scan on 08/21/22. No stones or hydronephrosis noted. Prostate is enlarged. There is diffuse urinary bladder wall thickening noted. Evaluation today-- On examination, testicles are normal. prostate exam limited, but no hard nodules palpated. Plan: At this time, further work-up would include office cystoscopy and PSA screening. The patient is agreeable to the plan. We will check a PSA. Follow up for office cystoscopy. [facility] Medical History Allergic rhinitis Anxiety Asthma COVID-19 virus detected Elevated cholesterol GERD (gastroesophageal reflux disease) Sleep apnea Surgical History History of colonoscopy Hx of endoscopy Family History Father No problems noted. Mother History of pancreatic cancer Social History Alcohol intake: current Alcohol intake frequency: holidays/special occasions only Patient Tobacco Use Status: Never used Tobacco Review of Systems Const All systems reviewed & are unremarkable except as noted in HPI and below Reports no additional complaints Eyes Reports no additional complaints ENT Reports no additional complaints Card Denies dyspnea Resp Denies cough and Denies dyspnea GI Reports no additional complaints Musc Reports no additional complaints Skin/Breast Denies rash and Denies unusual bruising Neuro Reports no additional complaints Psych Reports no additional complaints Endo Reports no additional complaints Donato/Lymph Reports no additional complaints Aller/Immun Reports no additional complaints Physical Exam Const General: healthy appearing, no acute distress and well developed Orientation/consciousness: patient oriented x3 HEENT Head: Yes normocephalic and Yes atraumatic Eyes Conjunctivae: conjunctivae normal Neck Neck: Yes normal visual inspection Chest Chest palpation & inspection: normal inspection of the chest Resp Effort & Inspection: normal respiratory effort Cardio Rate: regular rate GI Inspection: Yes normal to inspection Other: prostate exam - limited Penis: normal penis Scrotum: scrotum normal Skin General skin exam: no rashes or lesions noted Neuro General: patient oriented x3 Extrem General: No pedal edema Psych Appearance: grossly normal Affect: normal affect Office Procedures Post Void Residual Post Residual Void Post Void Residual (PVR): [id number] Void Residual by ultrasound Results AMB Urinalysis, Automated UA Leukoctes 0 Kranthi/uL Last Edit by Molina Cain Marck on 09/23/22 15:54 UA Nitrite Negative Last Edit by Molina Cain, [facility] on 09/23/22 15:54 UA Urobilinogen 0.2 mg/dL Last Edit by Molina Cain [facility] on 09/23/22 15:5 4 UA Protein 0 mg/dL Last Edit by Molina Cain [facility] on 09/23/22 15:54 UA pH 6.0 Last Edit by Molina Cain [facility] on 09/23/22 15:54 UA Blood 0 Victor Hugo/uL Last Edit by Molina Cain [facility] on 09/23/22 15:54 UA Specific [place] 1.010 Last Edit by Molina Cain [facility] on 09/23/22 15: 54 UA Ketone Negative Last Edit by Molina Cain [facility] on 09/23/22 15:54 UA Bilirubin 0 mg/dL Last Edit by Molina Cain [facility] on 09/23/22 15:54 UA Glucose 0 mg/dL Last Edit by Molina Cain [facility] on 09/23/22 15:54 Results Reviewed Results Reviewed: Laboratory Last Values Urine pH (Auto) 6.0 09/23/22 15:41 Specific [place] (Auto) 1.010 09/23/22 15:41 Urine Protein (Auto) 0 mg/dL 09/23/22 15:41 Glucose (UA)(Auto) 0 mg/dL 09/23/22 15:41 Urine Ketones (Auto) Negative 09/23/22 15:41 Urine Blood (Auto) 0 Victor Hugo/uL 09/23/22 15:41 Urine Nitrite (Auto) Negative 09/23/22 15:41 Urine Bilirubin (Auto) 0 mg/dL 09/23/22 15:41 Urine Urobilinogen (Auto) 0.2 mg/dL 09/23/22 15:41 Leukocyte Esterase (Auto) 0 Kranthi/uL 09/23/22 15:41 Date: 08/21/22 FINDINGS: The lack of intravenous contrast limits evaluation of the solid visceral organs including the liver, spleen, pancreas, and kidneys. LUNG BASES: There is a 0.6 cm right middle lobe pulmonary nodule image 29 series 4. No focal consolidation or pleural effusion.? LIVER, GALLBLADDER, AND BILIARY TREE: Multiple liver cysts with several additional too small to characterize liver hypodensities. The liver is normal in size, shape and attenuation. Partially calcified gallbladder calculus in the neck measuring 2 cm. No significant pericholecystic fat stranding or free fluid. No biliary ductal dilatation.? PANCREAS: Limited noncontrast examination. No peripancreatic free fluid or fat stranding.? SPLEEN: Unremarkable.? ADRENAL GLANDS: Unremarkable.? KIDNEYS AND URETERS: No hydronephrosis or nephrolithiasis. No perivesical fat stranding.? BLADDER: Diffuse urinary bladder wall thickening.? GASTROINTESTINAL TRACT: The stomach and the small bowel are nondilated. Normal appendix. No pericolonic inflammatory changes or evidence of bowel obstruction. Fecalization of the small bowel. Moderate degree of colonic stool content.? ABDOMINAL WALL: Small fat-containing left-sided inguinal hernia.? LYMPH NODES: No lymphadenopathy. VASCULAR: Limited noncontrast examination. Normal caliber of the abdominal aorta. PELVIC VISCERA: Enlarged prostate.? OSSEOUS STRUCTURES: Degenerative changes of the spine. No acute or aggressive appearing osseous abnormalities. IMPRESSION: 1.? No nephrolithiasis or hydronephrosis. 2.? Diffuse urinary bladder wall thickening, correlate clinically for cystitis. 3.? Enlarged prostate. 4.? Fecalization of the small bowel and moderate volume of stool in the colon suggesting slow transit and constipation. 5.? Cholelithiasis but no evidence of acute cholecystitis. 6.? Liver cysts admixed with too small to characterize hypodensities, statistically also favoring to represent simple cysts. If the patient presents high risk factors for malignancy, further evaluation with an and abdominal MRI could be obtained as clinically indicated. 7.? Indeterminate 0.6 cm right middle lobe pulmonary nodule. Assuming patient has no history of malignancy, recommend follow-up per Fleischner Society recommendations. According to the UPDATED 2017 Fleischner Society recommendations, the advised followup imaging for a single 6-8 mm solid nodule is: LOW RISK PATIENT: CT at 6-12 months, then consider CT at 18-24 months. HIGH RISK PATIENT: CT at 6-12 months, then at 18-24 months.? Assessment & Plan Assessment & Plan (1) Gross hematuria: Code(s): R31.0 - Gross hematuria (2) Enlarged prostate: Code(s): N40.0 - Benign prostatic hyperplasia without lower urinary tract symptoms (3) Bladder wall thickening: Code(s): N32.89 - Other specified disorders of bladder Plan At this time, further work-up would include office cystoscopy and PSA screening. The patient is agreeable to the plan. We will check a PSA. Follow up for office cystoscopy. Orders: Orders AMB Urinalysis Automated 09/23/22 Z13.9 - Encounter for screening, unspecified AMB Post Void Residual by ultrasound 09/23/22 N39.8 - Other specified disorders of urinary system Patient Instructions: The patient had an opportunity to ask questions regarding treatment plan. All questions were answered. Imaging, Laboratory studies and physical exam results were discussed and reviewed in detail. No major barriers to understanding were identified. The patient expressed understanding and agreement with the above treatment plan. The patient is aware they should contact our office by phone for worsening of their current condition or the appearance of new symptoms. Compliance is encouraged with any medications and followup testing that is ordered. It is a privilege to be allowed the opportunity to participate in the urologic care of your patient. If you have any questions or concerns regarding treatment for the above conditions please do not hesitate to contact me. The office telephone contact is [phone]. This note is constructed in part using voice recognition software. While every effort has been made to ensure accuracy chart computer errors may have been included. Yours sincerely, Bridget Saravia MD Coding Level of Care Code New Pt Level 4 (54396) Diagnoses Gross hematuria R31.0 Enlarged prostate N40.0 Bladder wall thickening N32.89 CPT Codes Post Residual Void - PVR CPT Code: 16488-Vhkl Void Residual by ultrasound ([id number])
== END 2022-09-23 16:09 | disposition home or self-care (01) ==
PROVIDERS: PCP Internal Medicine; Visit Provider Urology
DX: R31.0 Gross hematuria (principal); N40.0 Benign prostatic hyperplasia without lower urinary tract symptoms; N32.89 Other specified disorders of bladder
CPT/HCPCS: 99204

== ENCOUNTER → 2022-09-23 15:13 | Outpatient (BNVA) | payer OTHER, SELFPAY | PROVIDERS: PCP Internal Medicine; Visit Provider Urology | DX: R31.9 Hematuria, unspecified (principal); N40.0 Benign prostatic hyperplasia without lower urinary tract symptoms; N32.89 Other specified disorders of bladder | CPT/HCPCS: 51798 ==

== ENCOUNTER 2022-10-14 13:25 | Outpatient (REF) | payer OTHER, SELFPAY ==
--- NOTE | ~2022-10-14 | MR_ITS ---
EXAMINATION: MR ABDOMEN WITHOUT AND WITH CONTRAST CLINICAL INFORMATION: Liver cyst. COMPARISON: CT abdomen/pelvis 08/21/2022 TECHNIQUE: MR abdomen was performed without and with use of 8 mL intravenous Gadavist gadolinium contrast. Postcontrast images are performed in multiphase dynamic sequences. Imaging was performed in 3 planes. FINDINGS: LUNG BASES: No pleural or pericardial effusion. LIVER, GALLBLADDER, AND BILIARY TREE: The liver is normal in size and contour. Normal signal intensity. Hepatic cysts. No suspicious features. No abnormal enhancement. No biliary ductal dilatation is present. Gallstone. PANCREAS: No ductal dilatation. SPLEEN: Not enlarged. ADRENAL GLANDS: No adrenal mass. KIDNEYS AND URETERS: The kidneys are symmetric in size and enhancement. No hydronephrosis or perinephric. GASTROINTESTINAL TRACT: No bowel obstruction. No ascites or fluid collection. ABDOMINAL WALL: No significant hernia is appreciated. LYMPH NODES: No bulky abdominal lymphadenopathy. VASCULAR: Normal caliber abdominal aorta. MR/MR abdomen wo/w con IMPRESSION: Hepatic cysts. Cholelithiasis.
[2022-10-14] MEDS: gadobutroL 10 ML VIAL IVPUSH (14:20)
[2022-10-14 17:52] LABS: PSA,Total (Free>4and<10) 6.13 ng/mL (0.00-4.00)
[2022-10-18 10:37] LABS: Free Prostate Spec Ag 0.8 ng/mL; Percent Free Prostate Spec Ag 13 % (calc) (>25); Prostate Specific Ag Total 6.2 ng/mL (< OR = 4.0)
== END 2022-10-14 13:26 | disposition home or self-care (01) ==
LOC: HO.MRI 13:25
PROVIDERS: Urology; PCP Internal Medicine; Visit Provider Internal Medicine
DX: Z12.5 Encounter for screening for malignant neoplasm of prostate (principal); N40.0 Benign prostatic hyperplasia without lower urinary tract symptoms; K76.89 Other specified diseases of liver
CPT/HCPCS: 36415; 74183; 84153; 84154; A9585

== ENCOUNTER 2022-10-20 14:11 | Outpatient (REF) | payer OTHER, SELFPAY ==
[2022-10-20 17:53] LABS: Urine Cytology See Pathology rpt
== END 2022-10-20 14:12 | disposition home or self-care (01) ==
LOC: HO.LAB 14:11
PROVIDERS: PCP Internal Medicine; Visit Provider Urology
DX: N40.0 Benign prostatic hyperplasia without lower urinary tract symptoms (principal); R31.0 Gross hematuria; R97.20 Elevated prostate specific antigen [PSA]
CPT/HCPCS: 52000; 81003; 88112; C1747

== ENCOUNTER 2022-10-20 14:11 | Outpatient (AMB) | payer OTHER, SELFPAY ==
--- NOTE | 2022-10-20 12:58 | A.OFFVIS_ITS ---
Intake Intake Visit Reasons: 4w/cysto/PSA Intake Note: Patient presents today for a CYSTOSCOPY Procedure: Meds: None Allergies to Antibiotic: No Known Allergies Blood Thinner: None PSA Results: 6.13 ng/mL 10/14/2022 Urinalysis test cleared for Cysto Disposible Uro-G Cystoscope Cannula: Lot: [id number] Exp: 07/14/2024 Fur Buyer Required: No Accompanied by: Self / Same As Patient Allergies carrot Allergy (Intermediate, Verified 10/20/22 14:13) Altered Sense of Taste flour Allergy (Intermediate, Uncoded 10/20/22 14:13) Itching SEASONAL ALLERGIES Allergy (Mild, Uncoded 10/20/22 14:13) HIVES Medication List - Last Reconciled 10/20/22 by Bridget Saravia MD albuterol sulfate 90 mcg/actuation (ProAir HFA) 2 puffs PO Q4-6H PRN finasteride (Proscar) 5 mg PO DAILY 90 days hydrocortisone 2.5% (Proctosol HC) 1 appl FL BID PRN omeprazole 1 cap PO DAILY PRN HPI HPI Comments History of Present Illness Details Jose Maria is a 57-year-old male who presents today to the office for cystoscopy procedure. 10/20/2022? The patient is a Somali speaking male. Certified materials mgmt tech was present during the visit. He was last seen by me on 09/23/2022. He has had CAT scan of the abdomen/pelvis with and without contrast done on 08/21/2022. I reviewed the PSA results from 10/14/2022 revealed 6.13. I reviewed the cystoscopy findings revealed bladder wall thickening. Bleeding noted at the prostate area, and prostate was enlarged. Review of chart: Last visit: 09/23/2022? Jose Maria is a 57-year-old male who presents today to the office as a new patient evaluation for hematuria and bladder wall thickening. The patient is a 57-year-old iraqi speaking male. Certified materials mgmt tech was present during the visit. The patient was seen in the ED on 08/21/22 with a complaint of hematuria. He states that he had acute episode of having a flushed feeling and a strong urge to use the bathroom. When he urinated, there was blood in the urine and it felt like a pressure was being released with the urination that was different sensation than he normally gets when he urinates. He increased his fluids and had persistent blood in the urine for the next few voids. So, he went to the emergency room. Once he got to the emergency room, he stated there was no visib le blood in the urine. I did review the emergency room records. He was discharged on Levaquin. I did not see a urine culture sent. It is unclear if he had any UTI; however, he denies any pain associated with the episodes. I have discussed reasons for blood in the urine may include but are not limited to kidney stones, cancer in the urinary tract, BPH, kidney stone disease or inflammatory conditions of the urinary tract. Results reviewed: CAT scan on 08/21/22. No stones or hydronephrosis noted. Prostate is enlarged. There is diffuse urinary bladder wall thickening noted. 09/23/22-Evaluation -On examination, testicles are normal. prostate exam limited, but no hard nodules palpated. Plan: At this time, further work-up would include office cystoscopy and PSA screening. The patient is agreeable to the plan. We will check a PSA. Follow up for office cystoscopy. 10/20/2022?Plan: Elevated PSA Proscar 5 mg daily was ordered. Gross hematuria Bleeding from prostate area during office cysto limited adequate visualization of bladder, Repeat cysto as outpatient with bilateratl retrogrades and TRUS prostate bx at that time. PENDING SALE TO [facility] Medical History Allergic rhinitis Anxiety Asthma COVID-19 virus detected Elevated cholesterol GERD (gastroesophageal reflux disease) Sleep apnea Surgical History History of colonoscopy Hx of endoscopy Family History Father No problems noted. Mother History of pancreatic cancer Social History Alcohol intake: current Alcohol intake frequency: holidays/special occasions only Patient Tobacco Use Status: Never used Tobacco Review of Systems Const All systems reviewed & are unremarkable except as noted in HPI and below Reports no additional complaints Eyes Reports no additional complaints ENT Reports no additional complaints Card Denies dyspnea Resp Denies cough and Denies dyspnea GI Reports no additional complaints Musc Reports no additional complaints Skin/Breast Denies rash and Denies unusual bruising Neuro Reports no additional complaints Psych Reports no additional complaints Endo Reports no additional complaints Donato/Lymph Reports no additional complaints Aller/Immun Reports no additional complaints Office Procedures Cystoscopy Consent Discussed risk and benefit or proposed procedure with the patient. Information consent for procedure given to the patient. Discussed technical aspects, risks, benefits and alternatives in full. Addressed all of the patient's questions and concerns regarding the procedure. The patient demonstrated knowledge and understanding. They wish to proceed with this procedure. Preparation The patient was prepped in the usual manner. A turbine engine assembler was present and in the room. Genitalia was prepped with betadine solution in a sterile manner. Lidocaine Jelly 2% was placed into the urethra and 16Fr flexible Olympus cystoscope was inserted into the meatus after adequate lubrication. [id number] DISPOSABLE SCOPE URO-G FLEXIBLE SCOPE Procedure code (CPT) selection complete Office Meds lidocaine HCl Performing Provider: Bridget Saravia MD Administered by: Emilee Looney RN on 10/20/22 14:40 Dose Route Admin Location Lot Number Expiration Date NDC Senior Associate 10 mL intra-urethral naproxen Performing Provider: Bridget Saravia MD Administered by: Emilee Looney RN on 10/20/22 14:40 Dose Route Admin Location Lot Number Expiration Date NDC Senior Associate 500 mg PO ciprofloxacin HCl Performing Provider: Bridget Saravia MD Administered by: Emilee Looney RN on 10/20/22 14:40 Dose Route Admin Location Lot Number Expiration Date NDC Senior Associate 500 mg PO Results AMB Urinalysis, Automated UA Leukoctes 0 Kranthi/uL Last Edit by SHADI Yeung on 10/20/22 14:37 UA Nitrite Negative Last Edit by SHADI Yeung on 10/20/22 14:37 UA Urobilinogen 0.2 mg/dL Last Edit by Molina Naylorirez, A on 10/20/22 14:3 7 UA Protein 0 mg/dL Last Edit by Molina Naylorirez, A on 10/20/22 14:37 UA pH 7.0 Last Edit by Molina Naylorirez, A on 10/20/22 14:37 UA Blood 0 Victor Hugo/uL Last Edit by Kenishacole Naylorirez, A on 10/20/22 14:37 UA Specific [place] 1.015 Last Edit by Molina Naylorirez, A on 10/20/22 14: 37 UA Ketone Negative Last Edit by Kenishacole Naylorirez, A on 10/20/22 14:37 UA Bilirubin 0 mg/dL Last Edit by Molina Naylorirez, A on 10/20/22 14:37 UA Glucose 0 mg/dL Last Edit by Molina Naylorirez, A on 10/20/22 14:37 Results Reviewed Results Reviewed: Laboratory Last Values Urine pH (Auto) 7.0 10/20/22 14:13 Specific [place] (Auto) 1.015 10/20/22 14:13 Urine Protein (Auto) 0 mg/dL 10/20/22 14:13 Glucose (UA)(Auto) 0 mg/dL 10/20/22 14:13 Urine Ketones (Auto) Negative 10/20/22 14:13 Urine Blood (Auto) 0 Victor Hugo/uL 10/20/22 14:13 Urine Nitrite (Auto) Negative 10/20/22 14:13 Urine Bilirubin (Auto) 0 mg/dL 10/20/22 14:13 Urine Urobilinogen (Auto) 0.2 mg/dL 10/20/22 14:13 Leukocyte Esterase (Auto) 0 Kranthi/uL 10/20/22 14:13 Date of Service: 10/14/22 EXAMINATION: MR ABDOMEN WITHOUT AND WITH CONTRAST CLINICAL INFORMATION: Liver cyst.? COMPARISON: CT abdomen/pelvis 08/21/2022 FINDINGS: LUNG BASES: No pleural or pericardial effusion.? LIVER, GALLBLADDER, AND BILIARY TREE: The liver is normal in size and contour. Normal signal intensity. Hepatic cysts. No suspicious features. No abnormal enhancement. No biliary ductal dilatation is present. Gallstone.? PANCREAS: No ductal dilatation. SPLEEN: Not enlarged.? ADRENAL GLANDS: No adrenal mass.? KIDNEYS AND URETERS: The kidneys are symmetric in size and enhancement. No hydronephrosis or perinephric.?? GASTROINTESTINAL TRACT: No bowel obstruction.? No ascites or fluid collection.?? ABDOMINAL WALL: No significant hernia is appreciated.? LYMPH NODES: No bulky abdominal lymphadenopathy. VASCULAR: Normal caliber abdominal aorta. IMPRESSION: Hepatic cysts. Cholelithiasis. Assessment & Plan Assessment & Plan (1) Enlarged prostate: Code(s): N40.0 - Benign prostatic hyperplasia without lower urinary tract symptoms (2) Gross hematuria: Code(s): R31.0 - Gross hematuria (3) Elevated PSA: Code(s): R97.20 - Elevated prostate specific antigen [PSA] Plan Elevated PSA Proscar 5 mg daily was ordered. Gross hematuria Bleeding from prostate area during office cysto limited adequate visualization of bladder, Repeat cysto as outpatient with bilateratl retrogrades and TRUS prostate bx at that time Orders: Orders Urine Cytology 10/20/22 N40.0 - Benign prostatic hyperplasia without lower urinary tract symptoms, R31.0 - Gross hematuria, R97.20 - Elevated prostate specific antigen [PSA] AMB Cystoscopy 10/20/22 N32.89 - Other specified disorders of bladder AMB Urinalysis Automated 10/20/22 Z13.9 - Encounter for screening, unspecified Medications: New finasteride (Proscar) 5 mg PO DAILY 90 days 90 tabs 3RF C61 - Malignant neoplasm of prostate Patient Instructions: The patient had an opportunity to ask questions regarding treatment plan. All questions were answered. Imaging, Laboratory studies and physical exam results were discussed and reviewed in detail. No major barriers to understanding were identified. The patient expressed understanding and agreement with the above treatment plan.? ? ? The patient is aware they should contact our office by phone for worsening of their current condition or the appearance of new symptoms. Compliance is encouraged with any medications and followup testing that is ordered.? ? ? It is a privilege to be allowed the opportunity to participate in the urologic care of your patient. If you have any questions or concerns regarding treatment for the above conditions please do not hesitate to contact me. The office telephone contact is [phone].? ? ? This note is constructed in part using voice recognition software. While every effort has been made to ensure accuracy jet dyeing machine tender errors may have been included.? ? ? Yours sincerely,? ? ? Bridget Saravia MD? ? Coding Level of Care Code Est Pt Level 3 (35631) Diagnoses Enlarged prostate N40.0 Gross hematuria R31.0 Elevated PSA R97.20 CPT Codes Cystoscopy - CPT: 23913-Rwebabxtxi ([id number]) Cystoscopy - CPT: DISPOSABLE SCOPE URO-G FLEXIBLE SCOPE ([id number])
== END 2022-10-20 15:37 | disposition home or self-care (01) ==
PROVIDERS: PCP Internal Medicine; Visit Provider Urology
DX: N40.0 Benign prostatic hyperplasia without lower urinary tract symptoms (principal); R31.0 Gross hematuria; R97.20 Elevated prostate specific antigen [PSA]
CPT/HCPCS: 52000; 99214

== ENCOUNTER 2022-11-16 08:03 | Day surgery (SDC) | payer OTHER, SELFPAY ==
[2022-11-11 15:24] VITALS: BMI 30.9
--- NOTE | 2022-11-15 10:06 | P.CONAN_ITS ---
Documented by User: Clarisa Olivares NP 11/15/22 10:08 HPI - Anesthesia Eval Consult details Narrative: 57yo M for Cystoscopy w/ retrograde, Prostate Needle Biopsy PMFSH Active Problems Active Problems: All Active Problems (Updated 11/11/22 @ 15:23 by Marilou Bentley, RN) Elevated PSA (Acute) Bladder wall thickening (Acute) Enlarged prostate (Acute) Gross hematuria (Acute) Hemorrhoids (Acute) Colon cancer screening (Acute) High cholesterol (Acute) GERD (gastroesophageal reflux disease) (Acute) Asthma (Acute) [place]O (obstructive sleep apnea) (Acute) Past Medical History Medical History History of COVID-19 GERD (gastroesophageal reflux disease) Elevated cholesterol Sleep apnea Asthma Anxiety Allergic rhinitis Family History Family History Father No problems noted. Mother History of pancreatic cancer Surgical History Surgical History Hx of endoscopy History of colonoscopy Social History Social History Are you a primary direct care counselor to a significant other at home: No Do you presently have visiting nurse or other home services: No Alcohol intake: current Alcohol intake frequency: holidays/special occasions only Patient Tobacco Use Status: Never used Tobacco Use of substances other than those prescribed or required for medical reasons: No Have you been hit, kicked, punched, or otherwise hurt by someone within the past year? If so, by whom?: No Are you DNR?: No Advance Directives: No Advance Directives Information Provided: Yes Advance Directives on File: No Eating poorly because of decreased appetite: No Nutrition Risks: No Nutritional Risk Meds Allergies Allergy/AdvReac Type Severity Reaction Status Date / Time carrot Allergy Intermediate Altered Verified 11/16/22 08:27 Sense of Taste Seasonal Allergies Allergy Mild Hives Verified 11/16/22 08:27 flour Allergy Intermediate Itching Uncoded 10/20/22 14:13 Home Medications Medication Instructions Recorded Confirmed Last Taken Type albuterol sulfate 90 mcg/actuation 2 puff PO Q4-6H PRN Shortness Of 03/18/20 11/11/22 Unknown History aerosol inhaler (ProAir HFA) Breath omeprazole 20 mg capsule,delayed 1 cap PO DAILY PRN Heartburn 03/18/20 11/11/22 11/16/22 07:45 History release Exam Exam Date and Time: November 15, 2022 1006 Height,Weight and Vital Signs: Height 5 ft 5 in Weight 84.368 kg Pertinent Lab Results Pertinent Lab Results: Laboratory Tests 09/08/22 11:27 WBC 6.1 Hgb 14.4 Hct 43.4 Plt Count 231 Sodium 140 Potassium 3.8 Chloride 108 Carbon Dioxide 24 BUN 17 H Creatinine 0.89 Narrative Narrative: EKG 10/2022 NSR Assessment and Plan Assessment Anesthesia Assessment: Chart Reviewed Documented by User: Shamika Loaiza MD 11/16/22 09:43 [facility] Past Medical History Medical History History of COVID-19 GERD (gastroesophageal reflux disease) Elevated cholesterol Sleep apnea Asthma Anxiety Allergic rhinitis Family History Family History Father No problems noted. Mother History of pancreatic cancer Surgical History Surgical History Hx of endoscopy History of colonoscopy History of Problems with Anesthesia: No Social History Social History Are you a primary direct care counselor to a significant other at home: No Do you presently have visiting nurse or other home services: No Alcohol intake: current Alcohol intake frequency: holidays/special occasions only Patient Tobacco Use Status: Never used Tobacco Use of substances other than those prescribed or required for medical reasons: No Have you been hit, kicked, punched, or otherwise hurt by someone within the past year? If so, by whom?: No Are you DNR?: No Advance Directives: No Advance Directives Information Provided: Yes Advance Directives on File: No Eating poorly because of decreased appetite: No Nutrition Risks: No Nutritional Risk Meds Allergies Allergy/AdvReac Type Severity Reaction Status Date / Time carrot Allergy Intermediate Altered Verified 11/16/22 08:27 Sense of Taste Seasonal Allergies Allergy Mild Hives Verified 11/16/22 08:27 flour Allergy Intermediate Itching Uncoded 10/20/22 14:13 Home Medications Medication Instructions Recorded Confirmed Last Taken Type albuterol sulfate 90 mcg/actuation 2 puff PO Q4-6H PRN Shortness Of 03/18/20 11/11/22 Unknown History aerosol inhaler (ProAir HFA) Breath omeprazole 20 mg capsule,delayed 1 cap PO DAILY PRN Heartburn 03/18/20 11/11/22 11/16/22 07:45 History release Exam Airway Mallampati Class: II TM Dist: >3cm Neck ROM: Full Loose/Missing/Broken Teeth: No Heart: RRR Lungs: CTA Assessment and Plan Assessment Anesthesia Assessment: Anesthesia Plan Discussed Final Anesthetic Review History of Problems with Anesthesia: No NPO: Yes ASA Class: II Final Preanesthetic Review: Meds/Allgs Chart Reviewed, Consent Obtained/Reviewed and Anes Risks/Benef Reviewed Patient Risk: Low Procedure Risk: Low Anesthetic Plan Anesthetic Plan: GA Disposition: Standard PACU
--- NOTE | ~2022-11-16 | FL_ITS ---
EXAMINATION: XR FLUOROSCOPY WITH IMAGES CLINICAL INFORMATION: Cystoscopy with retrograde. COMPARISON: None available. TECHNIQUE: Fluoroscopy Supervised By: Dr. Bridget Saravia. Fluoroscopy Time: 10.0 seconds. Cumulative Dose: 3.11 mGy. DAP: Not available. Images: 3. FINDINGS: Images from bilateral retrograde exam. The bilateral collecting systems are normal. The visualized right distal ureter is normal. FL/FL guidance in OR IMPRESSION: Fluoroscopy guidance for bilateral retrograde exam.
[2022-11-16 08:06] VITALS: BP 135/81; PULSE 73; RESP 16; TEMP 37.2; O2SAT 97
[2022-11-16] MEDS: Lactated Ringers 1,000 ML 100 ML IVCONT (08:35)
--- NOTE | 2022-11-16 10:41 | MHC.SHP ---
Pre-Procedural Eval Section A Date of Service: 11/16/22 The patient is an INPATIENT: No The History & Physical has been completed within 30 days and I have reviewed it.: Yes Section B Chief Complaint: Gross hematuria,Elevated prostate specific antigen Allergies: Allergies Allergy/AdvReac Type Severity Reaction Status Date / Time carrot Allergy Intermediate Altered Verified 11/16/22 08:27 Sense of Taste Seasonal Allergies Allergy Mild Hives Verified 11/16/22 08:27 flour Allergy Intermediate Itching Uncoded 10/20/22 14:13 Plan Diagnosis/Plan: Unchanged I have reviewed the history and physical and performed a pertinent physical examination on my patient. No changes have occurred unless specified. Cystoscopy, bilateral retrogrades, Transrectal guided biopsy of prostate Time Spent With Patient Time: Total time managing care of this patient today ____ minutes.
--- NOTE | 2022-11-16 10:46 | W.PM.OPN ---
Operative Note Operative Note Date of Service: 11/16/22 Narrative: PreOperative Diagnosis:? ? Elevated PSA, gross hematuria Post Operative Diagnosis:??Elevated PSA, gross hematuria Procedure:?1. Transrectal ultrasound guided biopsy of the prostate 12 core 2. Transrectal ultrasound measurement of prostate 3. Transrectal ultrasound guided pudendal nerve block 4. CYSTOSCOPY, bilateral retrogrades Surgeon:?Dr Bridget Saravia Anesthesia:? General Indications for procedure: Elevated PSA Details of procedure: The patient was brought into the operating room placed on the OR table in supine position. levaquin 500 mg IV. General anesthesia was administered. The patient was repositioned into lithotomy position, prepped and draped in the usual sterile fashion. Time-out was done per protocol. 2% lidocaine urojet was passed transurethrally into the bladder. A 22 fr cystoscope was placed transurethrally into the bladder. The bulbous urethra was within normal limits, the prostatic urethra was enlarged, bilobar enlargement prominant but not obstructive median lobe. The right and left ureteral orifices were visualized. There were mild to moderate trabeculations noted. There were no suspicious bladder lesions seen. The bladder was emptied, the cystoscope was removed. The patient was repositioned on the procedure table in left lateral position. Patient identity confirmed by air sealing technician. Digital rectal exam performed, iodine mixed with lubricant jelly 30 cc placed per rectum. Ultrasound probe was placed per rectum. The prostate was visualized, minimal prostatic calcifications noted. The prostate was measured width 5.63 cm, height 4.21 cm, length 4.72 cm with a volume of 59.0 mL. An ultrasound guided pudendal nerve block was performed using 10 cc of 1% lidocaine. A 12 core biopsy was performed from the left base, left mid, left apex and right base, mid, apex 2 biopsies from each section. The ultrasound probe was removed and digital palpation of the prostate for 1-2 minutes for hemostasis was performed. The patient tolerated the procedure well. Complications: None The patient was brought out of anesthesia and taken to recovery in stable condition. Complications: None Drains: none
[2022-11-16 10:49] VITALS: BP 119/75; PULSE 66; RESP 13; TEMP 36.7; O2SAT 98
[2022-11-16 10:54] VITALS: BP 116/75; PULSE 69; RESP 14; O2SAT 98
[2022-11-16 10:59] VITALS: BP 121/79; PULSE 73; RESP 16; O2SAT 98
[2022-11-16] MEDS: Acetaminophen 325 MG TABLET 650 MG PO (11:03)
[2022-11-16] MEDS: Phenazopyridine HCL 100 MG TABLET 200 MG PO (11:03)
[2022-11-16 11:04] VITALS: BP 120/79; PULSE 70; RESP 16; O2SAT 98
[2022-11-16 11:19] VITALS: BP 130/83; PULSE 65; RESP 16; TEMP 36.3; O2SAT 96
== END 2022-11-16 12:27 | disposition home or self-care (01) ==
PROVIDERS: PCP Internal Medicine; Visit Provider Urology
PROC: 0TJB8ZZ Inspection of Bladder, Via Natural or Artificial Opening Endoscopic (ICD-10-PCS; CPT 52000; principal; 2022-11-16 09:40)
PROC: (CPT 55700; 2022-11-16 09:40)
DX: R97.20 Elevated prostate specific antigen [PSA] (principal); N40.0 Benign prostatic hyperplasia without lower urinary tract symptoms; R31.0 Gross hematuria; N32.89 Other specified disorders of bladder; J45.909 Unspecified asthma, uncomplicated; G47.33 Obstructive sleep apnea (adult) (pediatric); E78.00 Pure hypercholesterolemia, unspecified; Z79.899 Other long term (current) drug therapy; Z86.16 Personal history of COVID-19
CPT/HCPCS: 55700; 52005; 76942; 88305; J1956; J2405; J3010; Q9967

== ENCOUNTER → 2022-11-16 08:03 | Outpatient (BNV) | payer OTHER, SELFPAY | PROVIDERS: PCP Internal Medicine; Visit Provider Urology | DX: R97.20 Elevated prostate specific antigen [PSA] (principal); R31.0 Gross hematuria | CPT/HCPCS: 52000; 55700; 74420; 76942 ==

== ENCOUNTER 2022-11-29 14:24 | Outpatient (AMB) | payer OTHER, SELFPAY ==
--- NOTE | 2022-11-29 14:27 | A.OFFVIS_ITS ---
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 11/29/2022? He is followed today for Post OP Cysto as outpatient with bilateral retrogrades and TRUS prostate bx He was last seen by me on 10/20/2022 for elevated PSA. His procedure was done on 11/16/2022. Cystoscopy findings: prostatic urethra bilobar enlargement, without an obstructiv median lobe; bladder wall thickening, mild to moderate trabeculations, no suspicious lesions, retrogrades WNL. TRUS-prostate volume measures, estimated 59.0 mL.?prostate tissue benign with acute and chronic inflammation Plan: Continue Proscar. Re-evaluate in [address] [facility] Medical History History of COVID-19 GERD (gastroesophageal reflux disease) Elevated cholesterol Sleep apnea Asthma Anxiety Allergic rhinitis Surgical History Hx of endoscopy History of colonoscopy Family History Father No problems noted. Mother History of pancreatic cancer Social History Are you a primary disabilities caregiver to a significant other at home: No Do you presently have visiting nurse or other home services: No Alcohol intake: current Alcohol intake frequency: holidays/special occasions only Patient Tobacco Use Status: Never used Tobacco Review of Systems Const All systems reviewed & are unremarkable except as noted in HPI and below Reports no additional complaints Eyes Reports no additional complaints ENT Reports no additional complaints Card Denies dyspnea Resp Denies cough and Denies dyspnea GI Reports no additional complaints Musc Reports no additional complaints Skin/Breast Denies rash and Denies unusual bruising Neuro Reports no additional complaints Psych Reports no additional complaints Endo Reports no additional complaints Donato/Lymph Reports no additional complaints Aller/Immun Reports no additional complaints Assessment & Plan Assessment & Plan (1) Elevated PSA: Code(s): R97.20 - Elevated prostate specific antigen [PSA] (2) Enlarged prostate: Code(s): N40.0 - Benign prostatic hyperplasia without lower urinary tract symptoms (3) Bladder wall thickening: Code(s): N32.89 - Other specified disorders of bladder (4) Gross hematuria: Code(s): R31.0 - Gross hematuria Plan Continue Proscar. Re-evaluate in 6 months with blood work. Orders: Orders PSA,Total (Free>4and<10) 5 Months N40.0 - Benign prostatic hyperplasia without lower urinary tract symptoms, R97.20 - Elevated prostate specific antigen [PSA] Patient Instructions: The patient had an opportunity to ask questions regarding treatment plan. All questions were answered. Imaging, Laboratory studies and physical exam results were discussed and reviewed in detail. No major barriers to understanding were identified. The patient expressed understanding and agreement with the above treatment plan.? ? ? The patient is aware they should contact our office by phone for worsening of their current condition or the appearance of new symptoms. Compliance is encouraged with any medications and followup testing that is ordered.? ? ? It is a privilege to be allowed the opportunity to participate in the urologic care of your patient. If you have any questions or concerns regarding treatment for the above conditions please do not hesitate to contact me. The office telephone contact is [phone].? ? ? This note is constructed in part using voice recognition software. While every effort has been made to ensure accuracy type copyist errors may have been included.? ? ? Yours sincerely,? ? ? Bridget Saravia MD? Telehealth Telehealth Location of provider rendering services: practice address Location of patient: address on file Patient Identification confirmed using: Name, : Yes Telehealth method: voice only Patient verbally consented to treatment: Yes Patient verbally consented to billing insurance company: Yes Patient informed of any privacy concerns related to visit: Yes Minutes spent on Phone/Video with Pt.: 15 Coding Level of Care Code Tele New Pt Level 3 (88272) Diagnoses Elevated PSA R97.20 Enlarged prostate N40.0 Bladder wall thickening N32.89 Gross hematuria R31.0
== END 2022-11-29 15:59 | disposition home or self-care (01) ==
LOC: HO.HUSH 14:24
PROVIDERS: PCP Internal Medicine; Visit Provider Urology
DX: R97.20 Elevated prostate specific antigen [PSA] (principal); N40.0 Benign prostatic hyperplasia without lower urinary tract symptoms; N32.89 Other specified disorders of bladder; R31.0 Gross hematuria
CPT/HCPCS: 99213

== ENCOUNTER → 2022-11-29 14:24 | Outpatient (BNVA) | payer OTHER, SELFPAY | PROVIDERS: PCP Internal Medicine; Visit Provider Urology ==

== ENCOUNTER 2023-01-11 09:28 | Emergency (ER) | payer OTHER, SELFPAY ==
--- NOTE | ~2023-01-11 | XR_ITS ---
EXAMINATION: XR CHEST CLINICAL INFORMATION: Cough COMPARISON: Chest 02/09/2019 TECHNIQUE: 2 views of the chest were obtained. 9:50 AM FINDINGS: No significant abnormality is noted involving the heart, lungs, mediastinum, bony thorax or soft tissues. XR/XR chest 2V IMPRESSION: No acute cardiopulmonary disease.
[2023-01-11 09:32] VITALS: BP 144/86; PULSE 79; RESP 20; TEMP 36.6; O2SAT 97; BMI 31.8
--- NOTE | 2023-01-11 09:36 | ECG_ITS ---
Test Reason : r cp Blood Pressure : / mmHG Vent. Rate : 074 BPM Atrial Rate : 074 BPM P-R Int : 176 ms QRS Dur : 074 ms QT Int : 386 ms P-R-T Axes : 031 013 031 degrees QTc Int : 428 ms Normal sinus rhythm Normal ECG When compared with ECG of 09-FEB-2019 21:19, No significant change was found Referred By: Generic ED Physician Electronically Signed By:ZULMA BLAKELY MD
[2023-01-11 10:20] LABS: IDNOW Serial# 08D9AD1C; Strep A Nucleic Acid Negative (Negative)
[2023-01-11 10:25] LABS: COVID-19 Test Negative (Negative); IDNOW Serial# 55D5AD1C
--- NOTE | 2023-01-11 10:54 | ED_ITS ---
HPI - General Adult General Chief complaint: Upper Respiratory Symptoms Stated complaint: Diff breathing Time Seen by Provider: 01/11/23 09:48 Source: patient and RN notes reviewed Mode of arrival: ambulatory Limitations: no limitations History of Present Illness HPI narrative: This is a 57-year-old male, with past medical history of BPH, presenting to the emergency department with complaints of throat irritation since yesterday. Patient states that yesterday he was doing yard work and felt warm, took off his jacket took a sip of water and suddenly felt an irritating sensation in his throat. He feels as though there is something stuck in his throat. He has been constantly clearing his throat without any relief. He has been able to eat and drink without difficulty. He states mild nasal congestion. No fevers. Endorses some chills. Denies chest pain, breath, abdominal pain, nausea, vomiting or diarrhea. Denies history of similar symptoms in the past. No other complaints or concerns at this time. MD complaint: Throat irritation Onset (ago): day(s) Radiation: non-radiation Severity: moderate Quality: aching Pain Consistency: constant Relieving factors: none Exacerbating factors: none Associated symptoms: denies other symptoms Treatments prior to arrival: none Related Data Home Medications Medication Instructions Recorded Confirmed albuterol sulfate 90 mcg/actuation 2 puff PO Q4-6H PRN Shortness Of 03/18/20 11/11/22 aerosol inhaler (ProAir HFA) Breath omeprazole 20 mg capsule,delayed 1 cap PO DAILY PRN Heartburn 03/18/20 11/11/22 release Previous Rx's Medication Instructions Recorded hydrocortisone 2.5 % topical cream 1 appl [place] BID PRN hemorrhoids #30 04/22/20 with perineal applicator grams (Proctosol HC) finasteride 5 mg tablet (Proscar) 5 mg PO DAILY 90 days #90 tabs 10/20/22 ciprofloxacin HCl 500 mg tablet 500 mg PO BID #9 tabs 11/16/22 (Cipro) Allergies Allergy/AdvReac Type Severity Reaction Status Date / Time carrot Allergy Intermediate Altered Verified 01/11/23 09:35 Sense of Taste Seasonal Allergies Allergy Mild Hives Verified 01/11/23 09:35 flour Allergy Intermediate Itching Uncoded 11/29/22 14:29 Review of Systems Review of Systems: Yes all other systems are reviewed and are negative Constitutional: Constitutional: Reports as per [facility] Past Medical History Attestation statement: The following information was validated with the patient. Medical History History of COVID-19 GERD (gastroesophageal reflux disease) Elevated cholesterol Sleep apnea Asthma Anxiety Allergic rhinitis Surgical History Hx of endoscopy History of colonoscopy Family History Family History Father No problems noted. Mother History of pancreatic cancer Social History Social History Are you a primary urgent care physician to a significant other at home: No Do you presently have visiting nurse or other home services: No Alcohol intake: current Alcohol intake frequency: holidays/special occasions only Patient Tobacco Use Status: Never used Tobacco Advance Directives: No Advance Directives Information Provided: Yes Physical Exam ED Vital Signs: Vital Signs - 24 hr 01/11/23 09:32 Temperature 97.9 F Pulse Rate 79 Respiratory Rate 20 Blood Pressure 144/86 H Pulse Oximetry 97 Oxygen Delivery Method Room Air BMI result Body Mass Index 31.8 Const General: cooperative, comfortable and no acute distress Orientation/consciousness: patient oriented x3 Limitations: no limitations HENMT Other: Oropharynx is widely patent, no tonsillar hypertrophy or exudates. Uvula is midline. No postnasal drip noted. Head: Yes normal to inspection, Yes normocephalic and Yes atraumatic Ears: hearing grossly normal bilaterally and TM's normal bilaterally General nose exam: Normal external nose present Face and sinus: Yes normal facial exam Mouth: Normal oral and palatal mucosa present, oropharynx normal and moist mucous membranes Throat: Yes posterior oropharynx normal Eyes General: appearance normal, both eyes and all related structures Eyelids: Yes eyelids normal Conjunctivae: conjunctivae normal Sclerae: sclerae normal Pupils: Equal, round and reactive pupils present EOM: EOMs intact bilaterally Neck Neck: Yes normal visual inspection, Yes full ROM and Yes no lymphadenopathy Lymphatic: no lymphadenopathy noted Chest Chest palpation & inspection: normal inspection of the chest Resp Effort & Inspection: normal respiratory effort and able to speak in complete sentences Auscultation: clear to auscultation bilaterally, no crackles, no rales, no rhonchi and no wheezes Cardio Rate: regular rate Rhythm: regular rhythm Heart sounds: S1 normal heart sound present and S2 normal heart sound present GI Inspection: Yes normal to inspection Skin General skin exam: no rashes or lesions noted Trauma: no lacerations or abrasions Wounds: no wounds Neuro General: patient oriented x3 and moves all extremities Cranial nerves: Yes Equal, round and reactive pupils present Extrem General: Yes normal to inspection Right upper extremity: normal to inspection Left upper extremity: normal to inspection Right lower extremity: normal to inspection Left lower extremity: normal to inspection Course Reevaluation(s) Reevaluation #1: Pt symptoms have resolved after gargling with gingerale. Patient has no chest pain or shortness of breath. Advised to drink plenty of fluids tea with honey and ibuprofen as needed. Given return precautions. Patient stable for dischar ge. Time: 11:35 Medical Decision Making Medical Decision Making [facility] Narrative: This is a 57-year-old male presenting to the emergency department for throat irritation. Examination revealing patent airway, no tonsillar erythema or edema. Uvula is midline. Patient has been eating and drinking without difficulty, frequently clearing throat. An EKG was order out in triage, which was normal sinus rhythm with no ST elevation or depression. He has no chest pain or shortness of breath. COVID and strep testing was normal. Patient's symptoms likely due to global hystericus. Patient has no wheezing, stridor. Patient tolerating orals secretions well. No trismus, drooling, or dysphonia. Oropharynx is widely patent Plan: Gargle with gingerale, and reassess Differential Diagnosis Differential Diagnoses: The differential diagnosis associated with the presentation includes global hystericus, pharyngitis, tonsillitis, uvulitis, foreign body-unlikely Lab Data MDM Lab Attestation statement: I reviewed the patient's lab results. Negative COVID, negative strep Labs: Lab Results 01/11/23 Range/Units 09:46 COVID-19 (WHITNEY) Negative (Negative) COVID-19 Clin Com See Note S. pyogenes GrpA JAQUELINE Negative (Negative) Independent Interpretation I performed an independent interpretation of an: EKG Interpretation: EKG normal sinus rhythm at a ventricular rate of 74 beats per minute, WY interval 176, QTC 428, no ST elevation or depression. Discharge Plan Discharge Clinical Impression: Globus sensation Patient Disposition: Home, Self-Care Additional Instructions: You presented to the emergency department for feeling as though something was stuck in your throat. Your physical exam was reassuring. Your chest x-ray was normal. You tested negative for COVID and strep. We were able to improve your symptoms after gargling with cornelius sumit. Please rest your voice for the rest of the day. Warm soups, he with honey, salt water gargles can help with sore throat. You may also take ibuprofen as needed for pain. If any new or worsening symptoms occur including inability to swallow, chest pain or shortness of breath, please return for re-evaluation. Prescriptions: No Action omeprazole 20 mg capsule,delayed release(DR/EC) 1 cap PO DAILY PRN (Reason: Heartburn) albuterol sulfate [ProAir HFA] 90 mcg/actuation HFA aerosol inhaler 2 puff PO Q4-6H PRN (Reason: Shortness Of Breath) ciprofloxacin HCl [Cipro] 500 mg tablet 500 mg PO BID Qty: 9 0RF hydrocortisone [Proctosol HC] 2.5 % cream with perineal applicator 1 appl [place] BID PRN (Reason: hemorrhoids) Qty: 30 3RF finasteride [Proscar] 5 mg tablet 5 mg PO DAILY 90 Days Qty: 90 3RF Stand Alone Forms: Work/School Release Interventions: ED Discharge Assessment Last Done: 01/11/23 11:40 Discharge Date/Time: 01/11/23 11:40
== END 2023-01-11 11:40 | disposition home or self-care (01) ==
PROVIDERS: Emergency Provider Student in an Organized Health Care Education/Training Program
DX: R09.A2 Foreign body sensation, throat (principal); Z11.52 Encounter for screening for COVID-19; E78.00 Pure hypercholesterolemia, unspecified; J45.909 Unspecified asthma, uncomplicated; Z79.899 Other long term (current) drug therapy
CPT/HCPCS: 71046; 87635; 87651; 93005; 99283

== ENCOUNTER 2023-03-19 13:00 | Emergency (ER) | payer OTHER, SELFPAY ==
--- NOTE | ~2023-03-19 | XR_ITS ---
EXAMINATION: XR FINGER, LEFT CLINICAL INFORMATION: Left fifth finger laceration COMPARISON: None available. TECHNIQUE: Three views of the left fifth and left hand. FINDINGS: There is no evidence of fracture. There is soft tissue laceration at the tip of the face finger. XR/XR finger LT min 2V IMPRESSION: No osseous abnormalities. Soft tissue avulsion
[2023-03-19 13:07] VITALS: BP 133/88; PULSE 87; RESP 18; TEMP 36.8; O2SAT 98; BMI 29.8
--- NOTE | 2023-03-19 13:07 | ED_ITS ---
HPI - Wound/Laceration General Chief Complaint: Wound/Laceration Stated Complaint: L middle finger laceration?? Time Seen by Provider: 03/19/23 13:43 Source: patient Mode of arrival: ambulatory Limitations: no limitations History of Present Illness HPI narrative: 57-year-old male previously healthy, [id number] here with complaints of laceration to left 5th digit. Patient reports that he was putting a row of seats into his car when his finger got caught in the latch. He pulled the finger away as it was crushed. His tetanus status is unknown. He reports laceration to the digit. No associated numbness, tingling, weakness of the extremity. Related Data Home Medications Medication Instructions Recorded Confirmed albuterol sulfate 90 mcg/actuation 2 puff PO Q4-6H PRN Shortness Of 03/18/20 11/11/22 aerosol inhaler (ProAir HFA) Breath omeprazole 20 mg capsule,delayed 1 cap PO DAILY PRN Heartburn 03/18/20 11/11/22 release Previous Rx's Medication Instructions Recorded hydrocortisone 2.5 % topical cream 1 appl ME BID PRN hemorrhoids #30 04/22/20 with perineal applicator grams (Proctosol HC) finasteride 5 mg tablet (Proscar) 5 mg PO DAILY 90 days #90 tabs 10/20/22 ciprofloxacin HCl 500 mg tablet 500 mg PO BID #9 tabs 11/16/22 (Cipro) cephalexin 500 mg capsule 500 mg PO BID #14 caps 03/19/23 Allergies Allergy/AdvReac Type Severity Reaction Status Date / Time carrot Allergy Intermediate Altered Verified 03/19/23 13:07 Sense of Taste Seasonal Allergies Allergy Mild Hives Verified 03/19/23 13:07 flour Allergy Intermediate Itching Uncoded 11/29/22 14:29 Review of Systems 2 Review of Systems: Yes all other systems are reviewed and are negative Constitutional: Constitutional: Reports no additional constitutional complaints, Denies body ache(s), Denies chills, Denies fever(s), Denies headache(s) and Denies weakness Eyes: Eyes: Reports no additional eye complaints and Denies change in vision ENT: Reports system reviewed and no additional complaints, except as documented, Denies dizziness, Denies headache(s), Denies nasal congestion, Denies nasal discharge and Denies neck pain Cardiovascular: Cardiovascular: Reports no additional cardiovascular complaints, Denies chest pain, Denies leg edema and Denies dyspnea Respiratory: Respiratory: Reports no additional respiratory complaints, Denies cough and Denies dyspnea Gastrointestinal: Gastrointestinal: Reports no additional gastrointestinal complaints, Denies abdominal pain, Denies diarrhea, Denies nausea and Denies vomiting Genitourinary: Genitourinary: Denies urinary incontinence Musculoskeletal: Musculoskeletal: Reports no additional musculoskeletal complaints, Denies back pain, Denies arthralgias, Denies joint swelling, Denies neck pain, Denies numbness and Denies tingling Integumentary/Breasts: Skin/Breast: Reports system reviewed and no additional complaints, except as docu, Denies rash and Reports wounds Neurologic: Reports system reviewed and no additional complaints, except as documented, Denies Abnormal speech present, Denies dizziness, Denies headache(s), Denies numbness, Denies tingling and Denies weakness PMFSH Past Medical History Attestation statement: The following information was validated with the patient. Source: old records reviewed and nursing notes reviewed Onset Date is defined in the Problem List Problems that require an onset date and time if occurred within 24 hrs of arrival to the ED Aortic Dissection and Rupture; Neurologic impairment; Cardiopulmonary Arrest; Endotracheal Intubation; Insertion or Replacement of Mechanical Circulatory Assist Device Medical History History of COVID-19 GERD (gastroesophageal reflux disease) Elevated cholesterol Sleep apnea Asthma Anxiety Allergic rhinitis Surgical History Hx of endoscopy History of colonoscopy Family History Family History Father No problems noted. Mother History of pancreatic cancer Social History Social History Are you a primary aged or disabled care worker to a significant other at home: No Do you presently have visiting nurse or other home services: No Alcohol intake: current Alcohol intake frequency: holidays/special occasions only Patient Tobacco Use Status: Never used Tobacco Advance Directives: No Advance Directives Information Provided: No Physical Exam 2 Vital Signs: Vital Signs: Last Vital Signs Temp 98.3 F 03/19/23 13:07 Pulse 87 03/19/23 13:07 Resp 18 03/19/23 13:07 BP 133/88 03/19/23 13:07 Pulse Ox 98 03/19/23 13:07 O2 Del Method Room Air 03/19/23 13:07 BMI result Body Mass Index 29.8 Const: General: cooperative, healthy appearing, comfortable and no acute distress Orientation/consciousness: patient oriented x3 Limitations: no limitations HEENT: Head: Yes normal to inspection Ears: hearing grossly normal bilaterally General nose exam: Normal external nose present Face and sinus: Yes normal facial exam Mouth: Normal oral and palatal mucosa present Throat: Yes posterior oropharynx normal Eyes: General: appearance normal, both eyes and all related structures P upils: Equal, round and reactive pupils present Neck: Neck: Yes normal visual inspection Chest: Chest palpation & inspection: normal inspection of the chest Resp: Effort & Inspection: normal respiratory effort Auscultation: clear to auscultation bilaterally Cardio: Rate: regular rate Rhythm: regular rhythm Peripheral pulses: P eripheral pulses 2+ throughout GI: Inspection: Yes normal to inspection Palpation (GI): Soft to palpation and nontender Auscultation: normal bowel sounds Back/Spine/Pelvis: Thoracic/Lumbar Spine: thoracic and lumbar spine normal to inspection Skin: General skin exam: no rashes or lesions noted Neuro: General: patient oriented x3, no focal motor deficits and normal sensation to monofilament Cranial nerves: Yes Equal, round and reactive pupils present Cognition (Neuro): normal cognition Speech: No Abnormal speech present Gait exam (Neuro): Normal gait present Motor exam (neuro): 5/5 motor strength present throughout Extrem: Other: FROM of the digit. Bleeding controlled Course Course Course Narrative: This is an RME: Additional HPI, ROS, PE not included below will be deferred to primary provider. This is a [id number]-male, with no known medical problems, presenting to the emergency department with a complaint of left fifth finger laceration. Unsure if it was a crush injury or laceration. large laceration to left fifth digit with nail avulsion, bleeding controlled. Plan: xr finger Medications Administered Discontinued Medications Generic Name Dose Route Start Last Admin Trade Name Freq PRN Reason Stop Dose Admin Acetaminophen 975 mg 03/19/23 13:08 03/19/23 13:10 Acetaminophen 325 Mg Tablet PO 03/19/23 13:09 975 mg ONCE ONE Administration Diphtheria/Tetanus/Acell Pertussis 0.5 ml 03/19/23 13:56 03/19/23 14:17 Diphth,Pertus(Acell),Tet Adult 0.5 Ml Syringe IM 03/19/23 13:57 0.5 ml .ONCE ONE Administration Lidocaine HCl 2 ml 03/19/23 13:56 03/19/23 14:17 Lidocaine Hcl 1 % Mpf 2 Ml Vial INFILTRATI 03/19/23 13:57 2 ml ONCE ONE Administration Lidocaine HCl 2 ml 03/19/23 13:56 03/19/23 14:17 Lidocaine Hcl 1 % Mpf 2 Ml Vial INFILTRATI 03/19/23 13:57 2 ml ONCE ONE Administration Lidocaine HCl 2 ml 03/19/23 13:56 03/19/23 14:17 Lidocaine Hcl 1 % Mpf 2 Ml Vial INFILTRATI 03/19/23 13:57 2 ml ONCE ONE Administration Medical Decision Making Medical Decision Making MDM Narrative: 57 yo old male previously healthy, [id number] here with complaints of laceration to left 5th digit. Patient reports that he was putting a row of seats into his car when his finger got caught in the latch. He pulled the finger away as it was crushed. His tetanus status is unknown. He reports laceration to the digit. No associated numbness, tingling, weakness of the extremity. 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 Therefore I spoke to Orthopedics on-call (Elizabeth RODRIGUEZ) so that patient may follow up outpatient Independent Interpretation I performed an independent interpretation of an: Plain X-Ray Interpretation: I independently reviewed the x-ray and agree with the radiology report Radiology Impression Discussion of test interpretation with radiology: I have reviewed the radiologist's reading. Radiologist Impression: [address] [address] XRay Report Signed Patient: Jose Maria Xie MR#: [id number] : 1965 Acct:[id number] Age/Sex: 57 / M ADM Date: 03/19/23 Loc: HO.ED Attending Dr: Ordering Physician: Shahnaz Brown Date of Service: 03/19/23 Procedure(s): XR finger LT min 2V Accession Number(s): [id number] cc: Shahnaz Brown; Physician,Unknown ~ EXAMINATION: XR FINGER, LEFT CLINICAL INFORMATION: Left fifth finger laceration COMPARISON: None available. TECHNIQUE: Three views of the left fifth and left hand. FINDINGS: There is no evidence of fracture. There is soft tissue laceration at the tip of the face finger. XR/XR finger LT min 2V IMPRESSION: No osseous abnormalities. Soft tissue avulsion Prescription Management I considered prescription management with: Pain Medication and Antibiotic Procedures Laceration Laceration 1: Site: hand (5th finger) Side (If applicable): left Size (cm): 3 Description: irregular ( involving nail) Pre-repair: wound explored, irrigated extensively and deep structures intact Skin layer closed with: vicryl Size (cm): 4-0 (3) and 5-0 (3) Number of sutures: 6 Technique: simple, interrupted Nerve Block Nerve Block 1: Time out performed: No Local Anesthetic: lidocaine 1% Amount of anesthesia used (mL): 4 Side: left Nerve Blocks: digital Procedure Successful: Yes Patient Tolerated Procedure: well Complications: none Discharge Plan Discharge Clinical Impression: Laceration Patient Disposition: Home, Self-Care Instructions: Laceration (ED) Additional Instructions: the sutures will stay in place for 7-10 days. Fall his follow-up with Orthopedics as they will remove her sutures. Leave the dressing on today for 24 hours. Tomorrow you may remove the dressing and wash the area with soap and water. Then reapplied the dressing and keep it covered with a bandage and the splint. return for signs of infection such as redness, drainage, odor, increasing pain or swelling Take the antibiotics as prescribed You did receive a tetanus shot while you were here in the emergency room. Take motrin or tylenol for pain as needed Prescriptions: New cephalexin 500 mg capsule 500 mg PO BID Qty: 14 0RF No Action omeprazole 20 mg capsule,delayed release(DR/EC) 1 cap PO DAILY PRN (Reason: Heartburn) albuterol sulfate [ProAir HFA] 90 mcg/actuation HFA aerosol inhaler 2 puff PO Q4-6H PRN (Reason: Shortness Of Breath) ciprofloxacin HCl [Cipro] 500 mg tablet 500 mg PO BID Qty: 9 0RF hydrocortisone [Proctosol HC] 2.5 % cream with perineal applicator 1 appl ME BID PRN (Reason: hemorrhoids) Qty: 30 3RF finasteride [Proscar] 5 mg tablet 5 mg PO DAILY 90 Days Qty: 90 3RF Referrals: [facility] [Provider Group] - 1 week
[2023-03-19] MEDS: Acetaminophen 325 MG TABLET 975 MG PO (13:10)
[2023-03-19] MEDS: Lidocaine HCl 1 % MPF 2 ML VIAL INFILTRATI ×3 (14:17)
[2023-03-19] MEDS: Diphth,Pertus(ACell),Tet Adult 0.5 ML SYRINGE IM (14:17)
== END 2023-03-19 15:17 | disposition home or self-care (01) ==
PROVIDERS: Emergency Provider Emergency Medicine
DX: S61.317A Laceration without foreign body of left little finger with damage to nail, initial encounter (principal); W23.0XXA Caught, crushed, jammed, or pinched between moving objects, initial encounter; Y93.89 Activity, other specified; Y92.810 Car as the place of occurrence of the external cause; Y99.9 Unspecified external cause status; Z23 Encounter for immunization
CPT/HCPCS: 12002; 73140; 90471; 90715; 99283; 99284

== ENCOUNTER 2023-03-25 08:12 | Outpatient (AMB) | payer OTHER, SELFPAY ==
--- NOTE | 2023-03-25 08:23 | MHC.OFFVIS ---
Intake Vital Signs 03/25/23 08:38 Height 5 ft 5 in Weight 179 lb BMI 29.8 Intake Visit Reasons: LT SF laceration Intake Note: Jose Maria a 57 year old right hand dominant male presents today for an ER follow up of left small finger, DOI 03/19/23. Patient reports while putting a row of seats in his vehicle his finger had gotten caught in the latch, he tried to pull his finger out causing a laceration to his finger. He presented to [facility] ED the same day where sutures were applied. Currently he is doing will, states intermittent throbbing pain. Denies numbness or tingling. Allergies carrot Allergy (Intermediate, Verified 03/19/23 13:07) Altered Sense of Taste Seasonal Allergies Allergy (Mild, Verified 03/19/23 13:07) Hives flour Allergy (Intermediate, Uncoded 11/29/22 14:29) Itching HPI LT SF laceration HPI Details 57-year-old right hand dominant male who presents to the office today for an ER follow-up of left middle finger injury s/p putting a row of seats in his vehicle when his finger got caught in the latch, 03/19/23. He reports he tried to pull his finger out which caused a laceration to his finger. He was seen at ED the same day where x-rays were performed and sutures were applied. He currently states he has intermittent throbbing pain in his finger. He also c/o numbness in his finger when he is wearing the bandage. He denies any numbness or tingling. He takes Tylenol for his pain with benefits. He is currently taking abx. [facility] Medical History History of COVID-19 GERD (gastroesophageal reflux disease) Elevated cholesterol Sleep apnea Asthma Anxiety Allergic rhinitis Surgical History Hx of endoscopy History of colonoscopy Family History Father No problems noted. Mother History of pancreatic cancer Social History Are you a primary care navigator to a significant other at home: No Do you presently have visiting nurse or other home services: No Alcohol intake: current Alcohol intake frequency: holidays/special occasions only Patient Tobacco Use Status: Never used Tobacco Review of Systems Const All systems reviewed & are unremarkable except as noted in HPI and below Physical Exam Vital Signs: BMI result Body Mass Index 29.8 Const General: cooperative, healthy appearing, comfortable, no acute distress, well developed and alert Orientation/consciousness: patient oriented x3 HEENT Head: Yes normal to inspection, Yes normocephalic and Yes atraumatic Eyes General: appearance normal, both eyes and all related structures Resp Effort & Inspection: normal respiratory effort and able to speak in complete sentences Cardio Rate: regular rate Peripheral pulses: Peripheral pulses 2+ throughout GI Palpation (GI): Soft to palpation Skin Lesions: no lesions Rashes: no rashes Neuro General: patient oriented x3 Extrem Other: Left small finger: Laceration distal to the DIP joint. No erythema or drainage. He can fully extend and flex his finger. FDP and FDS is intact. NVI. Results Reviewed Results Reviewed: X-rays of the left hand obtained at ED on 03/19/23 is negative for any acute fracture or dislocations. Assessment & Plan Assessment & Plan (1) Laceration: Plan Sutures will remain intact for another week. He will keep this clean and dry and continue with antibiotics for the next week. If he notices any redness or drainage, he will contact the office, otherwise he will follow-up in 1 week. Patient Instructions: Scribed for Reece Howard PA-C, by Skinny Nugent medical illustrator, on 03/25/2023 at 8:30 AM EST. IReece PA-C, have personally reviewed and agree with the information entered by the scribe. Coding Level of Care Code New Pt Level 3 (72419) Diagnoses Laceration
[2023-03-25 08:38] VITALS: BMI 29.8
== END 2023-03-25 09:04 | disposition home or self-care (01) ==
PROVIDERS: Visit Provider Physician Assistant
DX: S61.215A Laceration without foreign body of left ring finger without damage to nail, initial encounter (principal)
CPT/HCPCS: 99203

== ENCOUNTER → 2023-03-25 08:12 | Outpatient (BNVA) | payer OTHER, SELFPAY | PROVIDERS: Visit Provider Physician Assistant ==

== ENCOUNTER 2023-04-01 08:56 | Outpatient (AMB) | payer OTHER, SELFPAY ==
--- NOTE | 2023-04-01 09:02 | A.OFFVIS_ITS ---
Intake Intake Visit Reasons: ov- L middle finger laceration?? Intake Note: Jose Maria a 57 year old right hand dominant male presents today for a follow up of left small finger, DOI 03/19/23. Patient reports he is doing well, states mild tolerable pain. States tenderness in his SF. Allergies carrot Allergy (Intermediate, Verified 03/19/23 13:07) Altered Sense of Taste Seasonal Allergies Allergy (Mild, Verified 03/19/23 13:07) Hives flour Allergy (Intermediate, Uncoded 11/29/22 14:29) Itching PFSH Medical History History of COVID-19 GERD (gastroesophageal reflux disease) Elevated cholesterol Sleep apnea Asthma Anxiety Allergic rhinitis Surgical History Hx of endoscopy History of colonoscopy Family History Father No problems noted. Mother History of pancreatic cancer Social History Are you a primary family day care worker to a significant other at home: No Do you presently have visiting nurse or other home services: No Alcohol intake: current Alcohol intake frequency: holidays/special occasions only Patient Tobacco Use Status: Never used Tobacco Review of Systems Const All systems reviewed & are unremarkable except as noted in HPI and below Physical Exam Const General: cooperative, healthy appearing, comfortable, no acute distress, well developed and alert Orientation/consciousness: patient oriented x3 HEENT Head: Yes normal to inspection, Yes normocephalic and Yes atraumatic Eyes General: appearance normal, both eyes and all related structures Resp Effort & Inspection: normal respiratory effort and able to speak in complete sentences Cardio Rate: regular rate Peripheral pulses: Peripheral pulses 2+ throughout GI Palpation (GI): Soft to palpation Skin Lesions: no lesions Rashes: no rashes Neuro General: patient oriented x3 Extrem Other: Left small finger: Laceration distal to the DIP joint. No erythema or drainage. He can fully extend and flex his finger. FDP and FDS is intact. NVI. Assessment & Plan Assessment & Plan (1) Laceration: Plan Stitches removed today. The area was cleaned and wrapped with light gauze. He will continue to increase activity as tolerated using caution to not soak or saturate for the next 7-10 days. If he notices any worsening redness, pain, swelling, or drainage he will contact the office, otherwise follow-up as needed. Patient Instructions: Scribed for Reece Howard PA-C, by Skinny Nugent medical practice assistant, on 04/01/2023 at 9:00 AM EST. Reece Hadley PA-C, have personally reviewed and agree with the information entered by the scribe. Coding Level of Care Code Est Pt Level 3 (46781) Diagnoses Laceration
== END 2023-04-01 09:34 | disposition home or self-care (01) ==
PROVIDERS: Visit Provider Physician Assistant
DX: Z48.02 Encounter for removal of sutures (principal)
CPT/HCPCS: 15853; 99212

== ENCOUNTER → 2023-04-01 08:56 | Outpatient (BNVA) | payer OTHER, SELFPAY | PROVIDERS: Visit Provider Physician Assistant ==

== ENCOUNTER 2023-05-30 15:49 | Outpatient (AMB) | payer OTHER, SELFPAY ==
--- NOTE | 2023-05-30 15:54 | A.OFFVIS_ITS ---
Intake Visit Reasons: 6 mo follow up Intake Note: Patient presents today for a follow up on bladder wall thickening /PSA Meds- Finasteride Allergies to Antibiotic- No Known Allergies Blood Thinner- None Post Void Residual:55ml Patient Symptoms: None Operations Support Analyst Required: No Accompanied by: Self / Same As Patient Allergies carrot Allergy (Intermediate, Verified 05/30/23 16:09) Altered Sense of Taste Seasonal Allergies Allergy (Mild, Verified 05/30/23 16:09) Hives flour Allergy (Intermediate, Uncoded 05/30/23 16:09) Itching HPI Comments Details: 05/30/23--Jose Maria is a 57-year-old male who presents today for a follow-up. He is followed for elevated PSA. s/p prostate biopsy 11/16/22 - results benign prostate tissue. He is prescribed proscar 5 mg daily. He states his is voiding without difficulty. Denies dysuria, recurrent gross hematuria. He had repeat PSA 06/08/23 - discsuss results - 3/65 ng/mL. Review of chart: 11/29/2022? He is followed today for Post OP Cysto as outpatient with bilateral retrogrades and TRUS prostate bx He was last seen by me on 10/20/2022 for elevated PSA. His procedure was done on 11/16/2022. Cystoscopy findings: prostatic urethra bilobar enlargement, without an obstructiv median lobe; bladder wall thickening, mild to moderate trabeculations, no suspicious lesions, retrogrades WNL. TRUS-prostate volume measures, estimated 59.0 mL.?prostate tissue benign with acute and chronic inflammation. Plan--Continue Proscar. Re-evaluate in 6 months with blood work. 05/30/23--Plan--Monitor PSA. FU in 6 months [facility] Medical History History of COVID-19 GERD (gastroesophageal reflux disease) Elevated cholesterol Sleep apnea Asthma Anxiety Allergic rhinitis Surgical History Hx of endoscopy History of colonoscopy Family History Father No problems noted. Mother History of pancreatic cancer Social History Are you a primary companion caregiver to a significant other at home: No Do you presently have visiting nurse or other home services: No Alcohol intake: current Alcohol intake frequency: holidays/special occasions only Patient Tobacco Use Status: Never used Tobacco Review of Systems Const All systems reviewed & are unremarkable except as noted in HPI and below Reports no additional complaints Eyes Reports no additional complaints ENT Reports no additional complaints Card Reports no additional complaints Resp Reports no additional complaints GI Reports no additional complaints Reports as per HPI Musc Reports no additional complaints Skin/Breast Reports system reviewed and no additional complaints, except as documented Neuro Reports no additional complaints Psych Reports no additional complaints Endo Reports no additional complaints Donato/Lymph Reports no additional complaints Aller/Immun Reports no additional complaints Office Procedures Post Void Residual Post Residual Void Post Void Residual (PVR): [id number] Void Residual by ultrasound Results AMB Urinalysis, Automated UA Leukoctes 0 Kranthi/uL [facility] [address] on 05/30/23 16 :16 UA Nitrite Negative Last Edit [facility], [facility] on 05/30/23 16: 16 UA Urobilinogen 0.2 mg/dL Last [facility], [facility] [address] on 4 16:16 UA Protein 0 mg/dL Last [facility] [address] on 05/30/23 16:16 UA pH 6.0 Last Edit by [facility] [address] on 05/30/23 16:16 UA Blood 0 Victor Hugo/uL Last Edit by [facility] [address] on 05/30/23 16:16 UA Specific [place] 1.020 Last Edit by [facility] [address] on 16:16 UA Ketone Negative Last Edit by [facility] on 05/30/23 16:1 6 UA Bilirubin 0 mg/dL Last Edit by [facility] on 05/30/23 16: 16 UA Glucose 0 mg/dL Last Edit by [facility] on 05/30/23 16:16 Results Reviewed Results Reviewed: Laboratory Last Values Urine pH (Auto) 6.0 05/30/23 16:15 Specific [place] (Auto) 1.020 05/30/23 16:15 Urine Protein (Auto) 0 mg/dL 05/30/23 16:15 Glucose (UA)(Auto) 0 mg/dL 05/30/23 16:15 Urine Ketones (Auto) Negative 05/30/23 16:15 Urine Blood (Auto) 0 Victor Hugo/uL 05/30/23 16:15 Urine Nitrite (Auto) Negative 05/30/23 16:15 Urine Bilirubin (Auto) 0 mg/dL 05/30/23 16:15 Urine Urobilinogen (Auto) 0.2 mg/dL 05/30/23 16:15 Leukocyte Esterase (Auto) 0 Kranthi/uL 05/30/23 16:15 Collected: 11/16/22 Location: [facility] Received: 11/16/22 Diagnosis Prostate, needle core biopsies: A. Left base lateral: Benign prostatic tissue. B. Left base medial: Benign prostatic tissue. C. Left mid lateral: Benign prostatic tissue. D. Left mid medial: Benign prostatic tissue. E. Left apex lateral: Benign prostatic tissue. F. Left apex medial: Benign prostatic tissue. G. Right base lateral: Benign prostatic tissue. H. Right base medial: Benign prostatic tissue. I. Right mid lateral: Benign prostatic tissue. J. Right mid medial: Benign prostatic tissue. K. Right apex lateral: Benign prostatic tissue. L. Right apex medial: Benign prostatic tissue. Comment: Scattered foci of acute and chronic inflammation present. Clinical History Elevated PSA Microscopic Description Microscopic sections reviewed. Material Received A. Left base lateral B. Left base medial Patient: Jose Maria Xie Age/Sex: 57/M MR#: [id number] Assessment & Plan Assessment & Plan (1) Elevated PSA: Code(s): R97.20 - Elevated prostate specific antigen [PSA] Category: Medical (2) Enlarged prostate: Code(s): N40.0 - Benign prostatic hyperplasia without lower urinary tract symptoms Category: Medical (3) Bladder wall thickening: Code(s): N32.89 - Other specified disorders of bladder Category: Medical (4) Gross hematuria: Code(s): R31.0 - Gross hematuria Category: Medical Plan Monitor PSA. FU in 6 months Orders: Orders AMB Urinalysis Automated 05/30/23 R33.9 - Retention of urine, unspecified AMB Post Void Residual by ultrasound 05/30/23 R33.9 - Retention of urine, unspecified PSA,Total (Free>4and<10) 05/30/23 R97.20 - Elevated prostate specific antigen [PSA], N40.0 - Benign prostatic hyperplasia without lower urinary tract symptoms Patient Instructions: The patient had an opportunity to ask questions regarding treatment plan. The patient expressed understanding and agreement with the above treatment plan. The patient is aware they should contact our office by phone for worsening of their current condition or the appearance of new symptoms. Compliance is encouraged with any medications and followup testing that is ordered. It is a privilege to be allowed the opportunity to participate in the urologic care of your patient. If you have any questions or concerns regarding treatment for the above conditions please do not hesitate to contact me. The office telephone contact is [phone]. This note is constructed in part using voice recognition software. While every effort has been made to ensure accuracy centralized traffic control operator errors may have been included. Yours sincerely, Bridget Saravia MD Coding Level of Care Code Est Pt Level 3 (33309) Diagnoses Elevated PSA R97.20 Enlarged prostate N40.0 Bladder wall thickening N32.89 Gross hematuria R31.0 CPT Codes Post Residual Void - PVR CPT Code: 48966-Zfnm Void Residual by ultrasound ([id number])
== END 2023-05-30 16:30 | disposition home or self-care (01) ==
PROVIDERS: PCP Internal Medicine; Visit Provider Urology
DX: R97.20 Elevated prostate specific antigen [PSA] (principal); N40.0 Benign prostatic hyperplasia without lower urinary tract symptoms; N32.89 Other specified disorders of bladder; R31.0 Gross hematuria
CPT/HCPCS: 99213

== ENCOUNTER → 2023-05-30 15:49 | Outpatient (BNVA) | payer OTHER, SELFPAY | PROVIDERS: PCP Internal Medicine; Visit Provider Urology | DX: R97.20 Elevated prostate specific antigen [PSA] (principal); N32.89 Other specified disorders of bladder; R31.0 Gross hematuria; N40.1 Benign prostatic hyperplasia with lower urinary tract symptoms; R33.8 Other retention of urine | CPT/HCPCS: 51798; 81003 ==

== ENCOUNTER 2023-06-08 11:50 | Outpatient (REF) | payer OTHER, SELFPAY ==
[2023-06-08 14:18] LABS: PSA,Total (Free>4and<10) 3.65 ng/mL (0.00-4.00)
== END 2023-06-08 11:51 | disposition home or self-care (01) ==
LOC: HO.LAB 11:50
PROVIDERS: PCP Internal Medicine; Visit Provider Urology
DX: Z12.5 Encounter for screening for malignant neoplasm of prostate (principal); R97.20 Elevated prostate specific antigen [PSA]; N40.0 Benign prostatic hyperplasia without lower urinary tract symptoms
CPT/HCPCS: 36415; 84153

== ENCOUNTER 2023-09-12 16:21 | Outpatient (REF) | payer OTHER, SELFPAY ==
[2023-09-12 17:42] LABS: MANUAL DIFF FLAG NO
[2023-09-12 17:54] LABS: Basophils Absolute Auto 0.1 X10*3/uL (0.0-0.2); Basophils Percent Auto 0.9 % (0-2); Eosinophils Absolute Auto 0.1 X10*3/uL (0.0-0.4); Eosinophils Percent Auto 2.3 % (0-4); Hematocrit 42.9 % (42.0-52.0); Hemoglobin 14.3 g/dl (14.0-18.0); Imm Gran Abs Auto 0.02 X10*3/uL (0.00-0.03); Imm Gran Pct Auto 0.4 % (0.0-0.4); Lymphocytes Absolute Auto 1.5 X10*3/uL (1.2-4.9); Lymphocytes Percent Auto 27.8 % (20-40); Mean Corpuscular HGB Conc 33.3 g/dl (31.0-36.0); Mean Corpuscular Hemoglobin 27.8 pg (27.0-33.0); Mean Corpuscular Volume 83.3 fL (80.0-98.0); Mean Platelet Volume 11.1 fL (9.4-12.4); Monocytes Absolute Auto 0.6 X10*3/uL (0.1-1.2); Monocytes Percent Auto 10.9 % (2-11); Neutrophils Absolute Auto 3.1 x10*3/uL (2.0-8.3); Neutrophils Percent Auto 57.7 % (45-73); Platelet Count 259 X10*3/uL (160-400); Red Blood Count 5.15 X10*6/uL (4.60-5.80); Red Cell Distribution Width 13.1 % (11.0-16.0); White Blood Count 5.3 X10*3/uL (4.8-10.8)
[2023-09-12 18:44] LABS: Alanine Aminotransferase 23 U/L (0-40); Albumin Level 3.5 g/dL (3.5-5.0); Alkaline Phosphatase 88 U/L (39-117); Anion Gap 11 (12-20); Aspartate Amino Transferase 17 U/L (5-37); Bilirubin Total 0.2 mg/dL (0.0-1.0); Blood Urea Nitrogen 16 mg/dL (9-16); Calcium 8.7 mg/dL (8.4-10.2); Carbon Dioxide 24 mmol/L (22-29); Chloride 108 mmol/L (96-108); Cholesterol 239 mg/dL (<200); Estimated Glomerular Filt Rate > 60; Glucose Random 88 mg/dL (60-115); HDL Cholesterol 59 mg/dL (>40); LDL Cholesterol Calculated 157 mg/dL (<100); Potassium 3.8 mmol/L (3.3-5.1); Sodium 139 mmol/L (135-145); Total Protein 6.5 g/dL (6.5-8.0); Triglycerides 118 mg/dL (<150)
[2023-09-12 18:59] LABS: TSH reflex Free T4 1.03 uIU/mL (0.32-4.0)
[2023-09-12 20:18] LABS: Reflex LDLD? No
[2023-09-13 07:16] LABS: Estimated Average Glucose 117 mg/dL; Hemoglobin A1C 152.2736 umol/L; Hemoglobin A1c % 5.7 % (<6.0)
== END 2023-09-12 16:22 | disposition home or self-care (01) ==
LOC: HO.HHCL 16:21
PROVIDERS: Visit Provider Internal Medicine
DX: R73.03 Prediabetes (principal)
CPT/HCPCS: 36415; 80053; 80061; 83036; 84443; 85025

== ENCOUNTER 2023-11-05 10:59 | Outpatient (REF) | payer OTHER, SELFPAY ==
[2023-11-05 12:22] LABS: PSA,Total (Free>4and<10) 3.99 ng/mL (0.00-4.00)
== END 2023-11-05 11:00 | disposition home or self-care (01) ==
LOC: HO.LAB 10:59
PROVIDERS: PCP Internal Medicine; Visit Provider Urology
DX: R97.20 Elevated prostate specific antigen [PSA] (principal); Z12.5 Encounter for screening for malignant neoplasm of prostate
CPT/HCPCS: 36415; 84153

== ENCOUNTER 2023-11-28 15:31 | Outpatient (AMB) | payer OTHER, SELFPAY ==
--- NOTE | 2023-11-28 15:46 | A.OFFVIS_ITS ---
Intake Visit Reasons: 6m/PSA Intake Note: Patient presents today for a follow up on PSA Meds- Finasteride Allergies to Antibiotic- No Known Allergies Blood Thinner- None Mattress Renovator Required: No Accompanied by: Self / Same As Patient Allergies carrot Allergy (Intermediate, Verified 11/28/23 15:46) Altered Sense of Taste Seasonal Allergies Allergy (Mild, Verified 11/28/23 15:46) Hives flour Allergy (Intermediate, Uncoded 11/28/23 15:46) Itching HPI Comments Details: 11/28/23--Jose Maria is a 58-year-old male who presents today for a follow-up. He is followed for elevated PSA. s/p prostate biopsy 11/16/22 - results benign prostate tissue. He is prescribed proscar 5 mg daily. He states his is voiding without difficulty. Denies dysuria, recurrent gross hematuria. He had repeat PSA 11/05/23 - discsuss results - 3.99 ng/mL is stable. Plan cont proscar. Review of chart: 05/30/23--Jose Maria is a 57-year-old male who presents today for a follow-up. He is followed for elevated PSA. s/p prostate biopsy 11/16/22 - results benign prostate tissue. He is prescribed proscar 5 mg daily. He states his is voiding without difficulty. Denies dysuria, recurrent gross hematuria. He had repeat PSA 06/08/23 - discsuss results - 3.65 ng/mL. 11/29/2022?He is followed today for Post OP Cysto as outpatient with bilateral retrogrades and TRUS prostate bx He was last seen by me on 10/20/2022 for elevated PSA. His procedure was done on 11/16/2022. Cystoscopy findings: prostatic urethra bilobar enlargement, without an obstructiv median lobe; bladder wall thickening, mild to moderate trabeculations, no suspicious lesions, retrogrades WNL. TRUS-prostate volume measures, estimated 59.0 mL.?prostate tissue benign with acute and chronic inflammation. Plan--Continue Proscar. Re-evaluate in 6 months with blood work. FORMERLY [facility] Medical History History of COVID-19 GERD (gastroesophageal reflux disease) Elevated cholesterol Sleep apnea Asthma Anxiety Allergic rhinitis Surgical History Hx of endoscopy History of colonoscopy Family History Father No problems noted. Mother History of pancreatic cancer Social History Are you a primary healthcare network consultant to a significant other at home: No Do you presently have visiting nurse or other home services: No Alcohol intake: current Alcohol intake frequency: holidays/special occasions only Patient Tobacco Use Status: Never used Tobacco Results AMB Urinalysis, Automated UA Leukoctes 0 Kranthi/uL Last Edit by [employer] on 11/28/23 16:15 UA Nitrite Last Edit by [employer] on 11/28/23 16:15 UA Urobilinogen 0.2 mg/dL Last Edit by [employer] on 11/28/23 16:15 UA Protein 0 mg/dL Last Edit by [employer] on 11/28/23 16:15 UA pH 8.0 Last Edit by [employer] on 11/28/23 16:15 UA Blood 0 Victor Hugo/uL Last Edit by [employer] on 11/28/23 16:15 UA Specific [place] 1.015 Last Edit by [employer] on 11/28/23 16:15 UA Ketone Negative Last Edit by [employer] on 11/28/23 16:15 UA Bilirubin 0 mg/dL Last Edit by [employer] on 11/28/23 16:15 UA Glucose 0 mg/dL Last Edit by [employer] on 11/28/23 16:15 Results Reviewed Results Reviewed: Laboratory Last Values Urine pH (Auto) 8.0 11/28/23 15:47 Specific [place] (Auto) 1.015 11/28/23 15:47 Urine Protein (Auto) 0 mg/dL 11/28/23 15:47 Glucose (UA)(Auto) 0 mg/dL 11/28/23 15:47 Urine Ketones (Auto) Negative 11/28/23 15:47 Urine Blood (Auto) 0 Victor Hugo/uL 11/28/23 15:47 Urine Bilirubin (Auto) 0 mg/dL 11/28/23 15:47 Urine Urobilinogen (Auto) 0.2 mg/dL 11/28/23 15:47 Leukocyte Esterase (Auto) 0 Kranthi/uL 11/28/23 15:47 Assessment & Plan Assessment & Plan (1) Elevated PSA: Code(s): R97.20 - Elevated prostate specific antigen [PSA] Category: Medical (2) Enlarged prostate: Code(s): N40.0 - Benign prostatic hyperplasia without lower urinary tract symptoms Category: Medical (3) Bladder wall thickening: Code(s): N32.89 - Other specified disorders of bladder Category: Medical (4) Gross hematuria: Code(s): R31.0 - Gross hematuria Category: Medical Plan He had repeat PSA 11/05/23 - 3.99 ng/mL is stable. Plan cont proscar. Orders: Orders AMB Urinalysis Automated 11/28/23 Z13.9 - Encounter for screening, unspecified Patient Instructions: The patient had an opportunity to ask questions regarding treatment plan. The patient expressed understanding and agreement with the above treatment plan. The patient is aware they should contact our office by phone for worsening of their current condition or the appearance of new symptoms. Compliance is encouraged with any medications and followup testing that is ordered. It is a privilege to be allowed the opportunity to participate in the urologic care of your patient. If you have any questions or concerns regarding treatment for the above conditions please do not hesitate to contact me. The office telephone contact is [phone]. This note is constructed in part using voice recognition software. While every effort has been made to ensure accuracy auxiliary engineer errors may have been included. Yours sincerely, Bridget Saravia MD Coding Level of Care Code Est Pt Level 4 (06473) Diagnoses Elevated PSA R97.20 Enlarged prostate N40.0 Bladder wall thickening N32.89 Gross hematuria R31.0
== END 2023-11-28 16:01 | disposition home or self-care (01) ==
PROVIDERS: PCP Internal Medicine; Visit Provider Urology
DX: R97.20 Elevated prostate specific antigen [PSA] (principal); N40.0 Benign prostatic hyperplasia without lower urinary tract symptoms; N32.89 Other specified disorders of bladder; R31.0 Gross hematuria
CPT/HCPCS: 99214

== ENCOUNTER → 2023-11-28 15:31 | Outpatient (BNVA) | payer OTHER, SELFPAY | PROVIDERS: PCP Internal Medicine; Visit Provider Urology | DX: R97.20 Elevated prostate specific antigen [PSA] (principal); R31.0 Gross hematuria; N40.0 Benign prostatic hyperplasia without lower urinary tract symptoms; N32.89 Other specified disorders of bladder | CPT/HCPCS: 81003 ==

== ENCOUNTER 2024-08-21 12:09 | Outpatient (REF) | payer OTHER, SELFPAY ==
[2024-08-21 13:38] LABS: Prostate Specific Antigen 10.43 ng/mL (<0.05-4.0)
--- OUTSIDE RECORDS SUMMARY | 2024-08-21 13:48 | XMS_ITS | Clinical Summary ---
Author Organization [employer] Address [address] [place] [address] [address] [place] [address] Care Team Providers Care Energy Audit Advisor Name Role Phone Daniela Sinclair MD Primary Care Provide r Allergies Active Allergy Reactions Criticality Noted Date Comments Carrot Oil 12/05/2023 Celery Oil 12/05/2023 Daucus Carota 04/30/2013 Medications pravastatin (Pravachol) 20 MG tabletIndications:M ixed hyperlipidemia Take 1 tablet (20 mg) by mouth Once per day. 30 tablet 11 4 12/05/19 25 Active Blood Pressure kit 1 each 2 times daily. 1 kit 4 12/21/19 25 Active sucralfate (Carafate) 1 GM/10ML suspension Take 10 mL (1 g) by mouth if needed in the morning, at noon, and at bedtime (throat discomfort). 946 mL 1 4 Active omeprazole OTC (PriLOSEC OTC) 20 MG EC tabletIndications:G astroesophageal reflux disease, unspecified whether esophagitis present Take 1 tablet (20 mg) by mouth before breakfast. Do not crush, chew, or split. 90 tablet 3 5 05/22/19 26 Active Active Problems Problem Noted Date Diagnosed Date Sialoadenitis of submandibular gland 03/13/2024 Assessment & Plan (05/21/2024 3:35 PM EDT): Treatment recommendations explained to patient: Hydration: Drinking plenty of fluids helps increase saliva production and flushes out the glands. Warm compresses: Applying warm compresses to the affected gland can reduce pain and swelling. Sialogogues: Foods that stimulate saliva production, such as lemon drops or sugar-free gum Good oral hygiene: Brushing teeth regularly and using an antiseptic mouthwash Pain relievers: Atek-zot-megknks pain relievers, such as ibuprofen or acetaminophen If not improved in 4-6 weeks, to call and leave message requesting CT scan ordered of neck Submandibular sialolithiasis 03/13/2024 Swallowing painful 03/13/2024 Onychomycosis 12/05/2023 Prediabetes 09/12/2023 Assessment & Plan (12/05/2023 5:33 PM EDT): Today extensive discussion was done about life style modifications I advise healthy diet (low calorie) and cardiovascular exercise Assessment & Plan (09/13/2023 5:14 PM EDT): Today extensive discussion was done about life style modifications I advise healthy diet (low calorie) and cardiovascular exercise Colon cancer screening 04/11/2023 Borderline high blood pressure 04/11/2023 Assessment & Plan (04/11/2023 4:52 PM EST): I advise increase physical activity, cardiovascular exercise, weight reduction and low Na diet Finger laceration 04/11/2023 Assessment & Plan (04/11/2023 4:54 PM EST): Maintain area dry and clean Follow surgeon instructions Preoperative examination 11/10/2022 Assessment & Plan (11/10/2022 10:23 AM EDT): Patient is low risk for low risk procedure RCRI score 0, which is 3.9% risk Procedure should happen as schedule I advise NPO after midnight the day of the procedure Patient is NOT on any anticoagulation medication EKG done at the office NSR no ST changes, result is view as normal Onycholysis 09/08/2022 Bladder wall thickening 09/08/2022 Assessment & Plan (09/08/2022 2:09 PM EDT): Patient has upcoming urology appointment, do not miss appointment Liver cyst 09/08/2022 Lung nodule 09/08/2022 Assessment & Plan (09/08/2022 2:09 PM EDT): CT scan will be repeated in 6 months Encounter for preventative adult health care exmikayla moralesation 09/08/2022 Assessment & Plan (09/08/2022 2:10 PM EDT): Please refer to HPI Hyperlipidemia 04/07/2012 Assessment & Plan (12/05/2023 5:34 PM EDT): I will start him on pravastatin 20mg daily his ASCVD score is 8.1 % risk LFTS and lipid panel to be monitor before next visit Gastroesophageal reflux disease 04/07/2012 Assessment & Plan (09/13/2023 5:14 PM EDT): I advise patient to avoid NSAIDs, spicy and acid food, I advise to eat at the same time every day, I advise to elevate the head of the bed and take medications as prescribe Assessment & Plan (04/11/2023 4:53 PM EST): I advise patient to avoid NSAIDs, spicy and acid food, I advise to eat at the same time every day, I advise to elevate the head of the bed and take medications as prescribe Anxiety 04/07/2012 Encounters Date Type Department Care Team Description 05/21/2024 2:00 PM EDT Office Visit [facility] MED[facility]INE [address] [place] [phone] Radha Benitez MD Sialoadenitis of submandibular gland (Primary Dx); Dietary counseling; Exercise counseling; Class 1 obesity with body mass index (BMI) of 31.0 to 31.9 in adult, unspecified obesity type, unspecified whether serious comorbidity present; Gastroesophageal reflux disease, unspecified whether esophagitis present 05/21/2024 Telephone [facility] MED[facility]INE [address] [place] [address] Daniela Sinclair MD Letter for School/Work 05/21/2024 Travel from Last 3 Months Immunizations Immunization Administration Dates Next Due Hep B, adult 04/15/2005,10/20/2004,09/16/2004 INFLUENZA INJECTABLE QUADRIV ALANT CCIIV4 MDCK Multi-dose vial 05/14/2020 INFLUENZA VACCINE QUADRIVALE NT RECOMBINANT PRESERVATIVE FREE RIV4 05/14/2020 Influenza Injectable Quadriv alant Preservative Free IIV4 MDCK 06/24/2021 Influenza, IIV3, injectable 01/24/2006 Influenza, Split (incl. chapis fied surface antigen) 11/20/2012,04/07/2012 Influenza, seasonal, injecta ble, preservative free 12/05/2023 Pfizer Covid-19 Vaccine 12+ 09/12/2023 Tdap 03/19/2023,08/30/2013 Zoster, Recombinant 10/14/2021,06/24/2021 Social History Tobacco Use Types Packs/Day Years Used Date Smoking Tobacco: Never Passive Smoke Exposure: Never Smokeless Tobacco: Never Tobacco Cessation:Counseling Given: Not Answered Alcohol Use Standard Drinks/Week Comments Never 0 (1 standard drink = 0.6 oz pur e alcohol) Depression Answer Date Recorded Patient Health Questionnaire-9 Score 0 09/12/2023 Patient Health Questionnaire-9 Score 0 09/12/2023 Last PHQ-9: Questionnaire Data Not on file 0 09/12/2023 Housing Stability Answer Date Recorded What is your housing situation today? I have precious valerio 01/10/[address] you li ve. Do you have problems with any of the following? None of the above 01/10/2023 Food Insecurity Answer Date Recorded Within the past 12 months, y ou worried that your food would run out before you got money to buy more: Never True 01/10/2023 Within the past 12 months,th e food you bought just didn't last and you didn't have enough money to get more: Never True 08/2022 Transportation Answer Date Recorded In the past 12 months, has l ack of transportation kept you from medical appts, meetings, work or from getting things needed for daily living? No 01/10/2023 Utilities Answer Date Recorded In the past 12 months, has t he electric, gas, oil or water company threatened to shut off services in your home? No 01/10/2023 Depression Answer Date Recorded Patient Health Questionnaire-2 Score 0 09/12/2023 Sex and Gender Information Value Date Recorded Sex Assigned at Male 01/04/2022 10:16 AM EDT Legal Sex Male 10:16 AM EDT Gender Identity Male 01/04/2022 10:16 AM EDT Sexual Orientation Straight 01/04/2022 10 :16 AM EDT Last Filed Vital Signs Vital Sign Reading Time Taken Comments Blood Pressure 151/80 05/21/2024 2:21 PM EDT Pulse 101 05/21/2024 2:21 PM EDT Temperature 36.6 ??C (97.8 ??F) 05/21/2024 2:21 PM ED T Respiratory Rate 18 05/21/2024 2:21 PM EDT Oxygen Saturation 99% 12/21/2023 7:05 PM EDT Inhaled Oxygen Concentration - - Weight 83.5 kg (184 lb) 05/21/2024 2:21 PM EDT Height 165.1 cm (5' 5 ) 05/21/2024 2:21 PM EDT Body Mass Index 30.62 05/21/2024 2:21 PM EDT Plan of Treatment Health Maintenance Due Date Last Done Comments CT Colonography 1966 Colonoscopy 1966 FIT 1966 FOBT 1966 Sigmoidoscopy 1966 Disability Screening 1966 Alcohol/Substance Use Screening 1978 Hepatitis A Vaccines (1 of 2 - Risk 2-dose series) 1985 Pneumococcal Vaccine: 50+ Years (1 of 1 - PCV) 2016 COVID-19 Vaccine ( season) 2023 09/12/2023, 03/20/2021, 07/08/2020, Additional history exists SDOH Screening 04/01/2024 04/01/2023 Depression Screening 09/11/2024 09/12/2023, 09/12/19 24 Diabetes: Hemoglobin A1C 09/11/2024 024, 09/08/2022, 06/11/2021, Additional history exists Tobacco Screening 05/21/2025 05/21/2024 Colorectal Cancer Screening 04/25/2026 FIT DNA/Cologuard 04/25/2026 04/25/2023 Lipid Panel 09/11/2028 09/12/2023, 0707/2022, 06/11/2021, Additional history exists DTaP/Tdap/Td Vaccines (3 - Td or Tdap) 03/19/2033 03/19/2023, 08/30/2013 RSV Patients and Patients Aged 60 years or older (1 - 1-dose 75+ series) 2041 Hepatitis B Vaccines Completed 04/15/2005, 10/20/2004, 09/16/2004 Zoster Vaccines Completed 10/14/2021, 06/24/2021 HIV Screening Completed 09/08/2022 Hepatitis C Screening Completed 09/08/2022 Influenza Vaccine Completed 12/05/2023, , 05/14/2020, Additional history exists HIB Vaccines Aged Out No longer eligi ble based on patient's age to complete this topic HPV Vaccines Aged Out No longer eligi ble based on patient's age to complete this topic IPV Vaccines Aged Out No longer eligi ble based on patient's age to complete this topic Meningococcal B Vaccine Aged Out No l onger eligible based on patient's age to complete this topic Meningococcal Vaccine Aged Out No edgar kaycee eligible based on patient's age to complete this topic RSV under 20 months Aged Out No longe r eligible based on patient's age to complete this topic Rotavirus Vaccines Aged Out No longer eligible based on patient's age to complete this topic Procedures Procedure Name Priority Date/Time Associated Diagnosis Comments PSA, TOTAL Routine 08/21/2024 12:31 PM EDT HEMOGLOBIN A1C Routine 09/12/2023 4:22 PM EDT Prediabetes LIPID PANEL WITH REFLEX TO DIRECT LDL Routine 09/12/2023 4:22 PM EDT Prediabetes LAB COLOGUARD?? COLON CANCER SCREEN Routine 04/25/2023 8:04 PM EST Colon cancer screening HEPATITIS C ANTIBODY REFLEX Routine 09/08/2022 11:27 AM EDT HIV ANTIBODY/ANTIGEN ([place] DPH) Routine 09/08/2022 11:27 AM EDT from Last 3 Months or Most Recently Relevant to Health Maintenance Results * (ABNORMAL) PSA,Total (08/21/2024 12:31 PM EDT) Prostate Specific Antigen 10.43(H ) <0.05 - 4.0 ng/mL [facility] Comment:PSA methodology: Abraham Rodney i ChemiluminescentMicroparticle Immunoassay (CMIA) 08/21/2024 12:3 1 PM EDT 08/21/2024 12:31 PM EDT us Generic External Data Provider LAB BLOOD ORDERAB LES Final Result [facility] [address] [place] [phone] * (ABNORMAL) Lipid Panel with Reflex to Direct LDL (09/12/2023 4:22 PM EDT) Triglycerides 118 <150 mg/dL [facility] Comment:Desirable Triglyceri de: less than 150 mg/dLBorderline High Triglyceride 150-199 mg/dLHigh Triglyceride: 200-499 mg/dLVery High Triglyceride: greater than or equal to 5OO mg/dL Cholesterol 239(H) <200 mg/dL [facility] Comment:Desirable Cholestero l: less than 200 mg/dLBorderline High Cholesterol: 200-239 mg/dLHigh Cholesterol: greater than 239 mg/dL LDL Cholesterol Calculated 157(H) <100 mg/dL [facility] Comment:Desirable LDL: less than 100 mg/dLNear Optimal/Above Optimal LDL: 110- 129 mg/dLBorderline High LDL: 130-159 mg/dLHigh LDL: 160-189 mg/dLVery High LDL: greater than or equal to 190 mg/dL HDL Cholesterol 59 >40 mg/dL [facility] Comment:Desirable HDL: great er than 40 mg/dL Note: This HDL assay may give artificially low results in patients with liver disease. Blood 09/12/2023 4:22 PM EDT 09/12/2023 5:39 PM EDT us Daniela Carreon MD LAB BLOOD ORDERABLES Final Result Performing Organization Address City/[facility]/ZIP Co de Phone Number [facility] [address] [place] [phone] * Hemoglobin A1c (09/12/2023 4:22 PM EDT) Hemoglobin A1c 5.7 <6.0 % [facility] Comment:Hemoglobin A1C Refer ence Range Adults: 4.8 - 6.0 % Non diabetic: < 6.0 % Goal: < 7.0 %Additional Action Suggested: > 8.0 %Note: Hemoglobin A1c results are invalid for patients with abnormal amounts of HbF. Blood transfusions may impact the HbA1c concentration in the patient sample. Estimated Average Glucose 117 mg/dL [facility] Comment:eAG = Estimated ave rage glucose which is %A1C expressed asaverage glucose, using the formula of the V8L-CtmpxilVuxsios Glucose study (ADAG), Diabetes Care, Vol.31,#8,Oct. 2007 Blood Venous blood specimen / Unknown 09/12/2023 4:22 PM EDT 09/12/2023 5:40 PM EDT us Daniela Carreon MD LAB BLOOD ORDERABLES Final Result Performing Organization Address City/[facility]/ZIP Co de Phone Number [facility] [address] [place] [address] [phone] * Cologuard?? colon cancer screening (04/25/2023 8:04 PM EST) Cologuard Result Negative Negative 05/04/19 24 1:53 AM EST [facility] (CLIA #:[id number]) Comment: NEGATIVE TEST RESULT. A negative Cologuard result indicates a low likelihood that a colorectal cancer (CRC) or advanced adenoma (adenomatous polyps with more advanced pre-malignant features) ??is present. The chance that a person with a negative Cologuard test has a colorectal cancer is less than 1 in 1500 (negative predictive value >99.9%) or has an ??advanced adenoma is less than ??5.3% (negative predictive value 94.7%). These data are based on a prospective cross-sectional study of 10,000 individuals at average risk for colorectal cancer who were screened with both Cologuard and colonoscopy. (Hailey Barth al, N Engl J Med 2014;370(14):1286- 1297) The normal value (reference range) for this assay is negative. COLOGUARD RE-SCREENING RECOMMENDATION: Periodic colorectal cancer screening is an important part of preventive healthcare for asymptomatic individuals at average risk for colorectal cancer. ??Following a negative Cologuard result, the [place] [employer] and U.S. Multi-Society Task Force screening guidelines recommend a Cologuard re-screening interval of 3 years. References: [place] [employer] Guideline for Colorectal Cancer Screening: https://www.cancer.org/cancer/gdgip-ajmfai-svpnxn/bbvppzcsr-lhspvqapn-wmsznhn/ac s-rec ommendations.html.; Dyllan DK, Myrna BARKER, Irene SanchezK, Colorectal Cancer Screening: Recommendations for Physicians and Patients from the U.S. Multi-Society Task Force on Colorectal Cancer Screening , Am J Gastroenterology 2017; 112:7940-5150. TEST DESCRIPTION: Composite algorithmic analysis of stool DNA-biomarkers with hemoglobin immunoassay. ?? Quantitative values of individual biomarkers are not reportable and are not associated with individual biomarker result reference ranges. Cologuard is intended for colorectal cancer screening of adults of either sex, 45 years or older, who are at average-risk for colorectal cancer (CRC). Cologuard has been approved for use by the U.S. FDA. The performance of Cologuard was established in a cross sectional study of average-risk adults aged 50-84. Cologuard performance in patients ages 45 to 49 years was estimated by sub-group analysis of near-age groups. Colonoscopies performed for a positive result may find as the most clinically significant lesion: colorectal cancer [4.0%], advanced adenoma (including sessile serrated polyps greater than or equal to 1cm diameter) [20%] or non- advanced adenoma [31%]; or no colorectal neoplasia [45%]. These estimates are derived from a prospective cross-sectional screening study of 10,000 individuals at average risk for colorectal cancer who were screened with both Cologuard and colonoscopy. (Hailey Barth al, N Engl J Med 2014;370(14):6560-4633.) Cologuard may produce a false negative or false positive result (no colorectal cancer or precancerous polyp present at colonoscopy follow up). A negative Cologuard test result does not guarantee the absence of CRC or advanced adenoma (pre-cancer). The current Cologuard screening interval is every 3 years. ([place] [employer] and U.S. Multi-Society Task Force). Cologuard performance data in a 10,000 patient pivotal study using colonoscopy as the reference method can be accessed at the following location: www.[employer].com/results. Additional description of the Cologuard test process, warnings and precautions can be found at www.cologuard.[employer]. Stool specimen (specimen) 04/25/2023 8:04 PM EST 04/27/2023 1:47 PM EST Daniela Carreon MD LAB MOLECULAR DIAGNOS TICS ORDERABLES Final Result [employer] (CLIA #:[id number]) [place] [address], * Hepatitis C Antibody Reflex (09/08/2022 11:27 AM EDT) Hepatitis C Antibody Nonreactive Nonreactive [facility] Comment:Antibodies to HCV no t detected; does not exclude early acuteHCV infection. 09/08/2022 11:2 7 AM EDT 09/08/2022 11:27 AM EDT [facility] External Provider LAB BLO OD ORDERABLES Final Result Performing Organization Address City/[facility]/ZIP Co de Phone Number [facility] [address] [place] [phone] * HIV Ab/Ag ([facility]) (09/08/2022 11:27 AM EDT) HIV AB/AG Nonreactive Nonreactive [facility] Comment:HIV-1 p24 Ag and/or HIV-1/HIV-2 Ab not detected.A test result that is nonreactive does not exclude thepossibility of exposure to or infection with HIV-1 and/orHIV-2. Nonreactive results in this assay for individualswith prior exposure to HIV-1 and/or HIV-2 may be due toantigen and antibody levels that are below the limit ofdetection of this assay.The Allison Rn Lvn HIV Ag/Ab Combo assay result andsupplemental assay results should be interpreted inconjunction with the patient's clinical presentation,history and other laboratory results. If the results areinconsistent with clinical evidence, additional testing issuggested to confirm the result. 09/08/2022 11:2 7 AM EDT 09/08/2022 11:27 AM EDT [facility] External Provider LAB BLO OD ORDERABLES Final Result [facility] [address] [place] [phone] from Last 3 Months or Most Recently Relevant to Health Maintenance Insurance [facility] , [address] [place] [address] Care Teams Energy Audit Advisor Relationship Specialty Start Date End Date Daniela Sinclair MD [address] [place] [phone] PCP - General Family Medicine 11/16/17
== END 2024-08-21 12:10 | disposition home or self-care (01) ==
LOC: HO.LAB 12:09
PROVIDERS: PCP Internal Medicine; Visit Provider Urology
DX: R97.20 Elevated prostate specific antigen [PSA] (principal); N40.0 Benign prostatic hyperplasia without lower urinary tract symptoms; Z12.5 Encounter for screening for malignant neoplasm of prostate
CPT/HCPCS: 36415; 84153

== ENCOUNTER 2024-08-27 15:32 | Outpatient (AMB) | payer OTHER, SELFPAY ==
--- NOTE | 2024-08-27 15:37 | A.OFFVIS_ITS ---
Intake Visit Reasons: 9m/PSA Intake Note: Patient presents today for a 9m follow up/PSA * 08/21 PSA: 10.43 Urology Meds- None Allergies to Antibiotic- No Known Allergies Blood Thinner- None Health Facilities Surveyor Required: No Accompanied by: Self / Same As Patient Allergies carrot Allergy (Intermediate, Verified 08/27/24 15:54) Altered Sense of Taste Seasonal Allergies Allergy (Mild, Verified 08/27/24 15:54) Hives flour Allergy (Intermediate, Uncoded 11/28/23 15:46) Itching Medication List - Last Reconciled 08/27/24 by Bridget Saravia MD albuterol sulfate 90 mcg/actuation (ProAir HFA) 2 puffs PO Q4-6H PRN finasteride (Proscar) 5 mg PO DAILY hydrocortisone 2.5% (Proctosol HC) 1 appl HI BID PRN omeprazole 1 cap PO DAILY PRN HPI Comments Details: 08/27/24-- History of Present Illness - The patient is a 59-year-old male presenting for follow-up of elevated PSA levels. - History of elevated PSA levels with a prostate biopsy on November 16, 2022, showing benign prostate tissue. - PSA levels were 6.2 on October 14, 2022, 3.65 on June 08, 2023, 3.99 on November 05, 2023, and increased to 10.43 on August 21, 2024. - The patient was prescribed Proscar, but there was a miscommunication regarding the continuation of the medication, leading to a nine-month lapse in treatment. - The patient reports no urinary symptoms and feels generally well. Results - PSA on October 14, 2022: 6.2 - PSA on June 08, 2023: 3.65 - PSA on November 05, 2023: 3.99 - PSA on August 21, 2024: 10.43 - Prostate biopsy on November 16, 2022: Benign prostate tissue Discussion Notes I discussed with the patient the increase in PSA levels and the need for further evaluation with an MRI of the prostate. I explained that if the MRI shows any new findings, a repeat prostate biopsy may be necessary. I discussed that I want him to restart the Proscar prescription and have reordered it. The patient was informed that the MRI is an imaging test to look for any changes in the prostate, and we will discuss the results after the test. 9/23/24--Jose Maria is a 58-year-old male who presents today for a follow-up. He is followed for elevated PSA. s/p prostate biopsy 11/16/22 - results benign prostate tissue. He is prescribed proscar 5 mg daily. He states his is voiding without difficulty. Denies dysuria, recurrent gross hematuria. He had repeat PSA 11/05/23 - discsuss results - 3.99 ng/mL is stable. Plan cont proscar. 05/30/23--Jose Maria is a 57-year-old male who presents today for a follow-up. He is followed for elevated PSA. s/p prostate biopsy 11/16/22 - results benign prostate tissue. He is prescribed proscar 5 mg daily. He states his is voiding without difficulty. Denies dysuria, recurrent gross hematuria. He had repeat PSA 06/08/23 - discsuss results - 3.65 ng/mL. 11/29/2022?He is followed today for Post OP Cysto as outpatient with bilateral retrogrades and TRUS prostate bx He was last seen by me on 10/20/2022 for elevated PSA. His procedure was done on 11/16/2022. Cystoscopy findings: prostatic urethra bilobar enlargement, without an obstructiv median lobe; bladder wall thickening, mild to moderate trabeculations, no suspicious lesions, retrogrades WNL. TRUS-prostate volume measures, estimated 59.0 mL.?prostate tissue benign with acute and chronic inflammation. Plan--Continue Proscar. Re-evaluate in 6 months with blood work. [facility] Medical History History of COVID-19 GERD (gastroesophageal reflux disease) Elevated cholesterol Sleep apnea Asthma Anxiety Allergic rhinitis Surgical History Hx of endoscopy History of colonoscopy Family History Father No problems noted. Mother History of pancreatic cancer Social History Are you a primary furnace caretaker to a significant other at home: No Do you presently have visiting nurse or other home services: No Alcohol intake: current Alcohol intake frequency: holidays/special occasions only Patient Tobacco Use Status: Never used Tobacco Review of Systems Const All systems reviewed & are unremarkable except as noted in HPI and below Reports no additional complaints Eyes Reports no additional complaints ENT Reports no additional complaints Card Reports no additional complaints Resp Reports no additional complaints GI Reports no additional complaints Reports as per HPI Musc Reports no additional complaints Skin/Breast Reports system reviewed and no additional complaints, except as documented Neuro Reports no additional complaints Psych Reports no additional complaints Endo Reports no additional complaints Donato/Lymph Reports no additional complaints Aller/Immun Reports no additional complaints Physical Exam Const General: healthy appearing, no acute distress and well developed Orientation/consciousness: patient oriented x3 HEENT Head: Yes normocephalic and Yes atraumatic Eyes Conjunctivae: conjunctivae normal Neck Neck: Yes normal visual inspection Chest Chest palpation & inspection: normal inspection of the chest Resp Effort & Inspection: normal respiratory effort Cardio Rate: regular rate GI Inspection: Yes normal to inspection Other: Prostate Exam: Enlarged. limited exam due to patient's body habitus, however no hard nodules palpated Neuro General: patient oriented x3 Psych Appearance: grossly normal Affect: normal affect Assessment & Plan Assessment & Plan (1) Elevated PSA: Code(s): R97.20 - Elevated prostate specific antigen [PSA] Category: Medical (2) Enlarged prostate: Code(s): N40.0 - Benign prostatic hyperplasia without lower urinary tract symptoms Category: Medical (3) Bladder wall thickening: Code(s): N32.89 - Other specified disorders of bladder Category: Medical (4) History of hematuria: Code(s): Z87.448 - Personal history of other diseases of urinary system Category: Medical Plan MRI prostate Plan - Order MRI of the prostate to evaluate for any changes or lesions. - If MRI findings are concerning, schedule a repeat prostate biopsy with targeting MRI guidance. - Reinstate Proscar prescription and ensure patient adherence to medication. - Follow up with the patient after MRI results to discuss further management. Medications: New finasteride (Proscar) 5 mg PO DAILY 90 tabs 3RF Patient Instructions: The patient had an opportunity to ask questions regarding treatment plan. The patient expressed understanding and agreement with the above treatment plan. The patient is aware they should contact our office by phone for worsening of their current condition or the appearance of new symptoms. Compliance is encouraged with any medications and followup testing that is ordered. It is a privilege to be allowed the opportunity to participate in the urologic care of your patient. If you have any questions or concerns regarding treatment for the above conditions please do not hesitate to contact me. The office telephone contact is [phone]. This note is constructed in part using voice recognition software. While every effort has been made to ensure accuracy doggy daycare activities director errors may have been included. Yours sincerely, Bridget Saravia MD Scribe Plan - Not visible on output: Patient was informed and verbally consented to the use of an ambient scribe for clinic note documentation during this visit. Coding Level of Care Code Est Pt Level 4 (20792) Complex EM visit Add On G2211 Diagnoses Elevated PSA R97.20 Enlarged prostate N40.0 Bladder wall thickening N32.89 History of hematuria Z87.448
--- OUTSIDE RECORDS SUMMARY | 2024-08-27 17:01 | XMS_ITS | Clinical Summary ---
Author Organization [employer] Address [address] [place] [address] [address] [place] [address] Care Team Providers Care Mine Equipment Design Engineer Name Role Phone Daniela Sinclair MD Primary [...] and using an antiseptic mouthwash Pain relievers: [id number] pain relievers, such as ibuprofen or acetaminophen [...] months Encounter for preventative adult health care exa mination 09/08/2022 Assessment & Plan (09/08/2022 2:10 PM [...] and take medications as prescribe Anxiety 04/07/2012 Immunizations Immunization Administration Dates Next Due Hep [...] 101 05/21/2024 2:21 PM EDT Temperature 36.6 C (97.8 F) 05/21/2024 2:21 PM EDT Respiratory Rate 18 05/21/2024 2:21 PM EDT [...] 04/01/2024 04/01/2023 Depression Screening 09/11/2024 09/12/2023, 09/12/19 Diabetes: Hemoglobin A1C 09/11/2024 024, 09/08/2022, 06/11/2021, Additional history exists Tobacco Screening 05/21/2025 05/21/2024 Colorectal Cancer Screening 04/25/2026 FIT DNA/Cologuard 04/25/2026 04/25/2023 Lipid Panel 09/11/2028 09/12/2023, 07/0 07/2022, 06/11/2021, Additional history exists DTaP/Tdap/Td Vaccines (3 [...] Routine 09/12/2023 4:22 PM EDT Prediabetes LAB COLOGUARD COLON CANCER SCREEN Routine 04/25/2023 8:04 PM EST Colon cancer screening HEPATITIS C ANTIBODY REFLEX Routine 09/08/2022 11:27 AM EDT HIV ANTIBODY/ANTIGEN ([place] [facility]) Routine 09/08/2022 11:27 AM EDT from Last 3 Months or Most Recently Relevant to Health Maintenance Results * (ABNORMAL) PSA,Total (08/21/2024 12:31 PM EDT) Prostate Specific Antigen 10.43(H ) <0.05 - 4.0 ng/mL [facility] Comment:PSA methodology: Abraham Rodney i ChemiluminescentMicroparticle Immunoassay (CMIA) 08/21/2024 12:3 1 PM EDT 08/21/2024 12:31 PM EDT us Generic External Data Provider LAB BLOOD ORDERAB LES Final Result [facility] [address] [place] [address] [phone] * (ABNORMAL) Lipid Panel with Reflex to Direct LDL (09/12/2023 4:22 PM EDT) Triglycerides 118 <150 mg/dL [facility] Comment:Desirable Triglyceri de: less than 150 mg/dLBorderline High Triglyceride 150-199 mg/dLHigh Triglyceride: 200-499 mg/dLVery High Triglyceride: greater than or equal to 5OO mg/dL Cholesterol 239(H) <200 mg/dL [facility] Comment:Desirable Cholestero l: less than 200 mg/dLBorderline High Cholesterol: 200-239 mg/dLHigh Cholesterol: greater than 239 mg/dL LDL Cholesterol Calculated 157(H) <100 mg/dL [facility] Comment:Desirable LDL: less than 100 mg/dLNear Optimal/Above Optimal LDL: 110- 129 mg/dLBorderline High LDL: 130-159 mg/dLHigh LDL: 160-189 mg/dLVery High LDL: greater than or equal to 190 mg/dL HDL Cholesterol 59 >40 mg/dL [facility] Comment:Desirable HDL: great er than 40 mg/dL Note: This HDL assay may give artificially low results in patients with liver disease. Blood 09/12/2023 4:22 PM EDT 09/12/2023 5:39 PM EDT Daniela Carreon MD LAB BLOOD ORDERABLES Final Result [facility] [address] [place] [phone] * Hemoglobin A1c (09/12/2023 4:22 PM EDT) Hemoglobin A1c 5.7 <6.0 % [facility] Comment:Hemoglobin A1C Refer ence Range Adults: 4.8 - 6.0 % Non diabetic: < 6.0 % Goal: < 7.0 %Additional Action Suggested: > 8.0 %Note: Hemoglobin A1c results are invalid for patients with abnormal amounts of HbF. Blood transfusions may impact the HbA1c concentration in the patient sample. Estimated Average Glucose 117 mg/dL [facility] Comment:eAG = Estimated ave rage glucose which is %A1C expressed asaverage glucose, using the formula of the O2H-XejzqtfYjlpcwp Glucose study (ADAG), Diabetes Care, Vol.31,#8,Oct. 2007 Blood Venous blood specimen / Unknown 09/12/2023 4:22 PM EDT 09/12/2023 5:40 PM EDT Daniela Carreon MD LAB BLOOD ORDERABLES Final Result [facility] [address] [place] [address] [phone] * Cologuard?? colon cancer screening (04/25/2023 8:04 PM EST) Cologuard Result Negative Negative 05/04/19 24 1:53 AM EST [facility] (CLIA #:[id number]) Comment: NEGATIVE TEST RESULT. A negative Cologuard result indicates a low likelihood that a colorectal cancer (CRC) or advanced adenoma (adenomatous polyps with more advanced pre-malignant features) is present. The chance that a person with a negative Cologuard test has a colorectal cancer is less than 1 in 1500 (negative predictive value >99.9%) or has an advanced adenoma is less than 5.3% (negative predictive value 94.7%). These data are based on a prospective cross-sectional study of 10,000 individuals at average risk for colorectal cancer who were screened with both Cologuard and colonoscopy. (Hailey Barth al, N Engl J Med 2014;370(14):4008-5976) The normal value (reference range) for this assay is negative. COLOGUARD RE-SCREENING RECOMMENDATION: Periodic colorectal cancer screening is an important part of preventive healthcare for asymptomatic individuals at average risk for colorectal cancer. Following a negative Cologuard result, the [place] [employer] and U.S. Multi-Society Task Force screening guidelines recommend a Cologuard re-screening interval of 3 years. References: [place] [employer] Guideline for Colorectal Cancer Screening: https://www.cancer.org/cancer/lkies-rtxkid-wmilru/kckyblagb-uwvuvaylh-turgyof/ac s-rec ommendations.html.; Dyllan DK, Myrna CR, Irene SanchezK, Colorectal Cancer Screening: Recommendations for Physicians and Patients from the U.S. Multi-Society Task Force on Colorectal Cancer Screening , Am J Gastroenterology 2017; 112:9243-9144. TEST DESCRIPTION: Composite algorithmic analysis of stool DNA-biomarkers with hemoglobin immunoassay. Quantitative values of individual biomarkers are not [...] (Hailey Barth al, N Engl J Med 2014;370(14):2860-5664.) Cologuard may produce a false negative or false positive result (no colorectal cancer or precancerous polyp present at colonoscopy follow up). A negative Cologuard test result does not guarantee the absence of CRC or advanced adenoma (pre-cancer). The current Cologuard screening interval is every 3 years. ([place] [employer] and U.S. Multi-Society Task Force). Cologuard performance data in a 10,000 patient pivotal study using colonoscopy as the reference method can be accessed at the following location: www.[employer].OVIA/results. Additional description of the Cologuard test process, warnings and precautions can be found at www.[employer].OVIA. Stool specimen (specimen) 04/25/2023 8:04 PM EST 04/27/2023 1:47 PM EST Daniela Carroen MD LAB MOLECULAR DIAGNOS TICS ORDERABLES Final Result Performing Organization Address City/[facility]/ZIP Co de Phone Number [facility] (CLIA #:[id number]) [place] [address], * Hepatitis C Antibody Reflex (09/08/2022 11:27 AM EDT) Hepatitis C Antibody Nonreactive Nonreactive [facility] Comment:Antibodies to HCV no t detected; does not exclude early acuteHCV infection. 09/08/2022 11:2 7 AM EDT 09/08/2022 11:27 AM EDT [facility] External Provider LAB BLO OD ORDERABLES Final Result Performing Organization Address [facility] Co de Phone Number [facility] [address] [place] [phone] * HIV Ab/Ag ([place] [facility]) (09/08/2022 11:27 AM EDT) HIV AB/AG Nonreactive Nonreactive [facility] Comment:HIV-1 p24 Ag and/or HIV-1/HIV-2 Ab not detected.A test result that is nonreactive does not exclude thepossibility of exposure to or infection with HIV-1 and/orHIV-2. Nonreactive results in this assay for individualswith prior exposure to HIV-1 and/or HIV-2 may be due toantigen and antibody levels that are below the limit ofdetection of this assay.The Allison Tmd Teacher Assistant HIV Ag/Ab Combo assay result andsupplemental assay results should be interpreted inconjunction with the patient's clinical presentation,history and other laboratory results. If the results areinconsistent with clinical evidence, additional testing issuggested to confirm the result. 09/08/2022 11:2 7 AM EDT 09/08/2022 11:27 AM EDT [facility] External Provider LAB BLO OD ORDERABLES Final Result [facility] [address] [place] [phone] [phone] from Last 3 Months or Most Recently Relevant to Health Maintenance Insurance , [address] [place] [phone] Care Teams Mine Equipment Design Engineer Relationship Specialty Start Date End Date Daniela Sinclair MD [address] [place] [phone] PCP - General Family Medicine 11/16/17
== END 2024-08-27 16:09 | disposition home or self-care (01) ==
LOC: HO.HUSH 15:32
PROVIDERS: PCP Internal Medicine; Visit Provider Urology
DX: R97.20 Elevated prostate specific antigen [PSA] (principal); N40.0 Benign prostatic hyperplasia without lower urinary tract symptoms; N32.89 Other specified disorders of bladder; Z87.448 Personal history of other diseases of urinary system
CPT/HCPCS: 99214; G2211

== ENCOUNTER 2024-10-01 08:51 | Outpatient (REF) | payer OTHER, SELFPAY ==
--- NOTE | ~2024-10-01 | MR_ITS ---
EXAMINATION: MR PROSTATE WITHOUT THEN WITH IV CONTRAST HISTORY: N40.0 - Benign prostatic hyperplasia without lower urinary tract symptoms TECHNIQUE: 1.5T body coil survey of the pelvis was performed. Phase array coil imaging of the prostate was performed in multiplanar high resolution axial, coronal, sagittal fast spin echo T2 and axial T1 weighted imaging sequences. Axial diffusion imaging at intermediate and high field performed with ADC mapping. Next, 8.5 mL Gadavist was given by intravenous infusion, and dynamic axial imaging performed. 3-D reconstructions and post-processing were performed on an independent workstation by the radiologist for biopsy planning using image fusion. COMPARISON: There are no prior studies available for comparison. CLINICAL DATA: Most recent PSA: 10.43 ng/mL on 08/21/2024. PSA Density: 0.14 ng/mL squared Prostate Biopsy: Negative biopsy on 11/16/2022. FINDINGS: Prostate size: 5.7 x 5.6 x 4.5 cm. Calculated prostate volume is 74.7 mL. Hemorrhage: None. Transitional Zone: There is moderate heterogeneous nodular hypertrophy of the transitional zone. Peripheral Zone: There are 2 areas of interest in the peripheral zone as described below: Area of interest #1: Location: Right posterolateral peripheral zone in the mid gland/apex measuring up to 10 mm in size (series 7, images 21-22). DWI PI-RADS v2.1 score: 3 T2 PI-RADS v2.1 score: 4 DCE PI-RADS v2.1 score: - Overall PI-RADS v2.1 score: 3 Capsular contact: yes Extracapsular extension: None Seminal vesicle invasion: None Neurovascular bundle involvement: None Area of interest #2: Location: Left posteromedial peripheral zone at the apex measuring 8 mm (series 7, images 23-24). DWI PI-RADS v2.1 score: 3 T2 PI-RADS v2.1 score: 4 DCE PI-RADS v2.1 score: - Overall PI-RADS v2.1 score: 3 Capsular contact: yes Extracapsular extension: Equivocal Seminal vesicle invasion: None Neurovascular bundle involvement: Equivocal Seminal Vesicles/Ejaculatory Ducts: Symmetric and normal in signal and caliber. Pelvic Lymph Nodes: No obturator or internal iliac lymph nodes meeting size criteria for adenopathy. Marrow Signal: Normal marrow signal and enhancement without focal lesion identified. MR/MR Prostate wo/w con IMPRESSION: Areas of interest in the peripheral zones bilaterally as described above, which are equivocal clinically significant prostate carcinoma. If imaging guided biopsy is planned, sampling of these regions is recommended. PI-RADS 3: Intermediate (the presence of clinically significant cancer is equivocal) PI-RADS Assessment Categories PI-RADS 1: Very low (clinically significant cancer is highly unlikely to be present) PI-RADS 2: Low (clinically significant cancer is unlikely to be present) PI-RADS 3: Intermediate (the presence of clinically significant cancer is equivocal) PI-RADS 4: High (clinically significant cancer is likely to be present) PI-RADS 5: Very high (clinically significant cancer is highly likely to be present) [employer]. MR Prostate Imaging Reporting and Data System version 2.1. http://www.acr.org/Quality-Safety/Resources/PIRADS/ Electronically signed by: Bart Mace MD 10/01/2024 10:46 AM EDT
--- OUTSIDE RECORDS SUMMARY | 2024-10-01 09:38 | XMS_ITS | Clinical Summary ---
Author Organization [employer] Address [address] [place] [address] [address] [place] [address] Care Team Providers Care Museum Exhibit Technician Name Role Phone Daniela Sinclair MD Primary Care Provide r Allergies Active Allergy Reactions Criticality Noted Date Comments Carrot Oil 12/05/2023 Celery Oil 12/05/2023 Daucus Carota 04/30/2013 Medications pravastatin (Pravachol) 20 MG tabletIndications: Mixed hyperlipidemia Take 1 tablet (20 mg) by [...] omeprazole OTC (PriLOSEC OTC) 20 MG EC tabletIndications: Gastroesophageal reflux disease, unspecified whether esophagitis present Take 1 tablet (20 mg) by mouth before breakfast. Do not crush, chew, or split. 90 tablet 3 5 05/22/19 26 Active clotrimazole-betam ethasone (Lotrisone) lotion Apply topically 2 times daily for 28 days. 30 mL 3 5 10/03/19 25 Active Active Problems Problem Noted Date Diagnosed [...] and using an antiseptic mouthwash Pain relievers: Mopl-sdd-ljpxwqo pain relievers, such as ibuprofen or acetaminophen [...] Encounter for preventative adult health care exmikayla mination 09/08/2022 Assessment & Plan (09/08/2022 2:10 [...] Encounters Date Type Department Care Team Description 09/04/2024 Refill [facility] MED[facility]INE [address] [place] [address] Daniela Sinclair MD from Last 3 Months Immunizations Immunization Administration [...] CT Colonography 1966 Colonoscopy 1966 FIT 1966 Sigmoidoscopy 1966 Disability Screening 1966 Alcohol/Substance Use Screening 1978 Hepatitis A Vaccines (1 of 2 - Risk 2-dose series) 1985 Pneumococcal Vaccine: 50+ Years (1 of 1 - PCV) 2016 COVID-19 Vaccine ( season) 2023 09/12/2023, 03/20/2021, 07/08/2020, Additional history exists SDOH Screening 04/01/2024 04/01/2023 FOBT 04/25/2024 04/25/2023 Depression Screening 09/11/2024 09/12/2023, 09/12/19 24 Diabetes: Hemoglobin A1C 09/11/2024 024, 09/08/2022, 06/11/2021, Additional history exists Influenza Vaccine (#1) 2024 4, 06/24/2021, 05/14/2020, Additional history exists Tobacco Screening 05/21/2025 05/21/2024 [...] Completed 09/08/2022 Hepatitis C Screening Completed 09/08/2022 HIB Vaccines Aged Out No longer eligi [...] Antigen 10.43(H ) <0.05 - 4.0 ng/mL [facility] Comment:PSA methodology: Abb nona Alilaneyty i ChemiluminescentMicroparticle Immunoassay (CMIA) 08/21/2024 12:3 1 PM EDT 08/21/2024 12:31 PM EDT us Generic External Data Provider LAB BLOOD ORDERAB LES Final Result Performing Organization Address [facility]/ZIP Co de Phone Number [facility] [address] [place] [phone] * (ABNORMAL) Lipid Panel with Reflex to Direct LDL (09/12/2023 4:22 PM EDT) Triglycerides 118 <150 mg/dL [facility] Comment:Desirable Triglyceri de: less than 150 mg/dLBorderline High Triglyceride 150-199 mg/dLHigh Triglyceride: 200-499 mg/dLVery High Triglyceride: greater than or equal to 5OO mg/dL Cholesterol 239(H) <200 mg/dL [facility] Comment:Desirable Cholestero l: less than 200 mg/dLBorderline High Cholesterol: 200-239 mg/dLHigh Cholesterol: greater than 239 mg/dL LDL Cholesterol Calculated 157(H) <100 mg/dL [facility] Comment:Desirable LDL: less than 100 mg/dLNear Optimal/Above Optimal LDL: 110- 129 mg/dLBorderline High LDL: 130-159 mg/dLHigh LDL: 160-189 mg/dLVery High LDL: greater than or equal to 190 mg/dL HDL Cholesterol 59 >40 mg/dL [facility] Comment:Desirable HDL: great er than 40 mg/dL Note: This HDL assay may give artificially low results in patients with liver disease. Blood 09/12/2023 4:22 PM EDT 09/12/2023 5:39 PM EDT us Daniela Carreon MD LAB BLOOD ORDERABLES Final Result Performing Organization Address City/[facility]/ZIP Co de Phone Number [facility] [address] [place] [phone] [phone] * Hemoglobin A1c (09/12/2023 4:22 PM EDT) Hemoglobin A1c 5.7 <6.0 % [facility] Comment:Hemoglobin A1C Refer ence Range Adults: 4.8 - 6.0 % Non diabetic: < 6.0 % Goal: < 7.0 %Additional Action Suggested: > 8.0 %Note: Hemoglobin A1c results are invalid for patients with abnormal amounts of HbF. Blood transfusions may impact the HbA1c concentration in the patient sample. Estimated Average Glucose 117 mg/dL [facility] Comment:eAG = Estimated ave rage glucose which is %A1C expressed asaverage glucose, using the formula of the U1J-IqcquicGtdppun Glucose study (ADAG), Diabetes Care, Vol.31,#8,Oct. 2007 Blood Venous blood specimen / Unknown 09/12/2023 4:22 PM EDT 09/12/2023 5:40 PM EDT Daniela Carreon MD LAB BLOOD ORDERABLES Final Result [facility] [address] [place] [phone] * Cologuard?? colon cancer screening (04/25/2023 8:04 PM EST) Cologuard Result Negative Negative 05/04/19 24 1:53 AM EST [facility] (CLIA #:[id number]) Comment: NEGATIVE TEST RESULT. A negative Cologuard [...] (Hailey Barth al, N Engl J Med 2014;370(14):4763-8549) The normal value (reference range) for this assay is negative. COLOGUARD RE-SCREENING RECOMMENDATION: Periodic colorectal cancer screening is an important part of preventive healthcare for asymptomatic individuals at average risk for colorectal cancer. Following a negative Cologuard result, the [place] Cancer Society and U.S. Multi-Society Task Force screening guidelines recommend a Cologuard re-screening interval of 3 years. References: [place] Cancer Society Guideline for Colorectal Cancer Screening: https://www.cancer.org/cancer/btiec-kzwrlb-extwod/uzfbqkojn-jwvvuhahv-tutuuzx/ac s-rec ommendations.html.; Dyllan DK, Myrna BARKER, Irene SanchezK, Colorectal Cancer Screening: Recommendations for Physicians and Patients from the U.S. Multi-Society Task Force on Colorectal Cancer Screening , Am J Gastroenterology 2017; 112:4453-3799. TEST DESCRIPTION: Composite algorithmic analysis of stool [...] (Hailey Barth al, N Engl J Med 2014;370(14):7460-5082.) Cologuard may produce a false negative or false positive result (no colorectal cancer or precancerous polyp present at colonoscopy follow up). A negative Cologuard test result does not guarantee the absence of CRC or advanced adenoma (pre-cancer). The current Cologuard screening interval is every 3 years. ([place]izen [place] Cancer Society and U.S. Multi-Society Task Force). Cologuard performance data in a 10,000 patient pivotal study using colonoscopy as the reference method can be accessed at the following location: www.Cisiv.HypeSpark/results. Additional description of the Cologuard test process, warnings and precautions can be found at www.E-Generatorrd.com. Stool specimen (specimen) 04/25/2023 8:04 PM EST 04/27/2023 1:47 PM EST Daniela Carreon MD LAB MOLECULAR DIAGNOS TICS ORDERABLES Final Result Performing Organization Address City/[facility]/ZIP Co de Phone Number [facility] (CLIA #:[id number]) [place] [address], * Hepatitis C Antibody Reflex (09/08/2022 11:27 AM EDT) Hepatitis C Antibody Nonreactive Nonreactive [facility] Comment:Antibodies to HCV no t detected; does not exclude early acuteHCV infection. 09/08/2022 11:2 7 AM EDT 09/08/2022 11:27 AM EDT [facility] External Provider LAB BLO OD ORDERABLES Final Result Performing Organization Address City/[facility] Co de Phone Number [facility] [address] [place] [phone] * HIV Ab/Ag ([place] [facility]) (09/08/2022 11:27 AM EDT) HIV AB/AG Nonreactive Nonreactive [facility] Comment:HIV-1 p24 Ag and/or HIV-1/HIV-2 Ab not detected.A test result that is nonreactive does not exclude thepossibility of exposure to or infection with HIV-1 and/orHIV-2. Nonreactive results in this assay for individualswith prior exposure to HIV-1 and/or HIV-2 may be due toantigen and antibody levels that are below the limit ofdetection of this assay.The [employer] HIV Ag/Ab Combo assay result andsupplemental assay results should be interpreted inconjunction with the patient's clinical presentation,history and other laboratory results. If the results areinconsistent with clinical evidence, additional testing issuggested to confirm the result. 09/08/2022 11:2 7 AM EDT 09/08/2022 11:27 AM EDT us [facility] External Provider LAB BLO OD ORDERABLES Final Result [facility] [address] [place] [phone] from Last 3 Months or Most Recently Relevant to Health Maintenance Insurance [facility] , [address] [place] [address] Care Teams Museum Exhibit Technician Relationship Specialty Start Date End Date Daniela Sinclair MD [address] [place] [phone] PCP - General Family Medicine 11/16/17
--- OUTSIDE RECORDS SUMMARY | 2024-10-01 09:38 | XMS_ITS | Data Portability ---
Author Organization [place] - [facility], All[facility] Address [address] [address] Care Team Providers Care Leadlighter Name Role Phone RUBY COLLIER Primary Care Provider [phone] TERRENCE OWUSU Referring Provider Assessment Encounter Date Assessment Date Assessment LastModified by Organization Details LastModified Time 03/13/2024 03/13/2024 Patient with discomfort in the region of the left submandibular gland during some meals, beverages, and tooth brushing. This spontaneously resolved about 3 weeks ago. Physical exam with slightly reduced salivary flow from the left submandibular gland than the right. No swelling of the gland and no palpable stones. Recommend increased oral hydration, sour sialogogue, and should the pain return would consider warm compresses and massage. Patient to call the office for re-evaluation with recurrence of the pain or with new throat symptoms. [email or web address] Not available 03/13/2024 15:29:57 Plan of Treatment Reminders Order Date Submit Date Provider Last Modified By Organization Details Last Modified Time Details Appointments None record ed. Lab None record ed. Referral None record ed. Procedures None record ed. Surgeries None record ed. Imaging None record ed. Medication Orders None record ed. Patient TargetsNo targets recorded. Patient InstructionsNo instructions recorded. Reason for Referral None Reported. Problems Name Problem SNOMED Code Status Onset Date Resolution Date Notes Provider Name and Address Organization Details Recorded Time Submandibular sialolithiasis 756515186 Active 2024 KARSON TODD PA-C [address], [address], [place] - [facility] 15:26:05 Sialoadenitis of the submandibular gland 283766944 Active 2024 KARSON TODD PA-C 100 [facility] [address], [place], [address], [facility] - [facility] 15:26:13 Swallowing painful 01357007 Active 2024 KARSON TODD PA-C 100 [facility], [address], [place], [address], [facility] - [facility] 15:30:24 Problem Notes None recorded. Procedures Surgical History Date Name Laterality Status Provider Name and Address Organization Details Recorded Time 03/13/19 25 Fiberoptic Laryngoscopy (Comprehensive) completed KARSON TODD PA-C 100 [facility] [address], [place], [address], [facility] 03/13/2024 13:26:05 Imaging Results None recorded. Procedure Notes None recorded. Medical Equipment None Reported. Medications Name Sig Start Date Stop Date Status Note LastModified by Organization Details LastModified Time sucralfate 100 mg/mL oral suspension TAKE 10 ML BY MOUTH THREE TIMES DAILY IN THE MORNING, AT NOON, AND AT BEDTIME NEEDED FOR PAIN IN THROAT active Not Available Not Available No t Available terbinafine HCl 250 mg tablet TAKE 1 TABLET BY MOUTH EVERY DAY FOR 14 DAYS active Not Available Not Available No t Available cephalexin 500 mg capsule TAKE 1 CAPSULE BY MOUTH TWICE A DAY active Not Available Not Available No t Available pravastatin 20 mg tablet TAKE 1 TABLET BY MOUTH EVERY DAY active Not Available Not Available No t Available finasteride 5 mg tablet TAKE 1 TABLET BY MOUTH DAILY FOR 90 DAYS active Not Available Not Available No t Available blood pressure test kit-large cuff USE TO CHECK BLOOD PRESSURE TWICE DAILY active Not Available Not Available No t Available Vitals Date Recorded Body weight Body mass index (BMI) Body height Provider Name and Address Organization Details Last Updated DateTime 03/13/2024 79704 g 31.6 kg/m2 162.56 cm Lyssa Thibodeaux [place] - [facility] 03/13/2024 13:12:42 Social History None recorded. Functional Status None recorded. Mental Status None recorded. Family History Nothing Reported. Medical History No medical history recorded. Past Encounters Encounter ID Performer Location Encounter Start Date Encounter Closed Date Diagnosis/Indication Diagnosis SNOMED-CT Code Diagnosis ICD10 Code Diagnosis Note [id number] KARSON TODD PA-C [facility] [address] [place] [address] 03/13/2024 13:07:46 03/13/2024 13:49:04 Sialoadenitis of the submandibular gland 618771920 K11.20 Swallowing painful 46293 002 R13.19 Health Concerns Section Related Observation LastModified by Organization Detai ls LastModified Time None Recorded Concern Status LastModified by Organization Details LastModified Time None Recorded Advance Directives Directive None Recorded Payers Insurance Date Sequence Insurance Name Policy Number Policy Bean Covered Member ID Bean Member ID Guarantor Name 06/07/2024 1 [facility] [id number] Jose Maria Xie [id number] Jose Maria Xie
== END 2024-10-01 08:52 | disposition home or self-care (01) ==
LOC: HO.MRI 08:51
PROVIDERS: PCP Internal Medicine; Visit Provider Urology
DX: N40.0 Benign prostatic hyperplasia without lower urinary tract symptoms (principal); R31.0 Gross hematuria; Z87.448 Personal history of other diseases of urinary system; N44.00 Torsion of testis, unspecified
CPT/HCPCS: 72197; 76377; A9585

== ENCOUNTER → 2024-10-01 09:05 | Outpatient (BNV) | payer OTHER, SELFPAY | PROVIDERS: PCP Internal Medicine; Visit Provider Radiology Diagnostic Radiology | DX: N40.0 Benign prostatic hyperplasia without lower urinary tract symptoms (principal) | CPT/HCPCS: 72197 ==

== ENCOUNTER 2024-10-08 15:20 | Outpatient (AMB) | payer OTHER, SELFPAY ==
--- NOTE | 2024-10-08 15:21 | A.OFFVIS_ITS ---
Intake Visit Reasons: 7w MRI f/u Intake Note: Patient presents today via telehealth for 7w follow up/MRI * Prostate MRI 10/01 Urology Meds- None Allergies to Antibiotic- No Known Allergies Blood Thinner- None Collision Repair Technician Required: No Accompanied by: Self / Same As Patient Allergies carrot Allergy (Intermediate, Verified 10/08/24 15:22) Altered Sense of Taste Seasonal Allergies Allergy (Mild, Verified 10/08/24 15:22) Hives flour Allergy (Intermediate, Uncoded 11/28/23 15:46) Itching HPI Comments Details: 10/08/24--Gilberto is an 8 Gilberto is a 59-year-old male of followed for elevated PSA telehealth follow-up today to review MRI of prostate History of Present Illness - The patient is a 59-year-old male presenting with elevated prostate-specific antigen (PSA). - Recent MRI on 10/01/24 showed two indeterminate areas in the prostate classified as PIRADS 3. - Previous prostate biopsies on 11/16/22 were benign. Results - MRI of the prostate performed on 10/01/24 showed two areas classified as PIRADS 3, indicating indeterminate risk for clinically significant cancer. - Previous prostate biopsies on 11/16/22 were benign Plan - Arrange for a targeted prostate biopsy to assess the indeterminate lesions noted on MRI. - Initiate prophylactic antibiotics one day prior to the procedure to minimize infection risk. 08/27/24-- - The patient is a 59-year-old male presenting for follow-up of elevated PSA levels. - History of elevated PSA levels with a prostate biopsy on November 16, 2022, showing benign prostate tissue. - PSA levels were 6.2 on October 14, 2022, 3.65 on June 08, 2023, 3.99 on November 05, 2023, and increased to 10.43 on August 21, 2024. - The patient was prescribed Proscar, but there was a miscommunication regarding the continuation of the medication, leading to a nine-month lapse in treatment. - The patient reports no urinary symptoms and feels generally well. Results - PSA on October 14, 2022: 6.2 - PSA on June 08, 2023: 3.65 - PSA on November 05, 2023: 3.99 - PSA on August 21, 2024: 10.43 - Prostate biopsy on November 16, 2022: Benign prostate tissue 11/28/23--Jose Maria is a 58-year-old male who presents today for a follow-up. He is followed for elevated PSA. s/p prostate biopsy 11/16/22 - results benign prostate tissue. He is prescribed proscar 5 mg daily. He states his is voiding without difficulty. Denies dysuria, recurrent gross hematuria. He had repeat PSA 11/05/23 - discsuss results - 3.99 ng/mL is stable. Plan cont proscar. 05/30/23--Jose Maria is a 57-year-old male who presents today for a follow-up. He is followed for elevated PSA. s/p prostate biopsy 11/16/22 - results benign prostate tissue. He is prescribed proscar 5 mg daily. He states his is voiding without difficulty. Denies dysuria, recurrent gross hematuria. He had repeat PSA 06/08/23 - discsuss results - 3.65 ng/mL. 11/29/2022?He is followed today for Post OP Cysto as outpatient with bilateral retrogrades and TRUS prostate bx He was last seen by me on 10/20/2022 for elevated PSA. His procedure was done on 11/16/2022. Cystoscopy findings: prostatic urethra bilobar enlargement, without an obstructiv median lobe; bladder wall thickening, mild to moderate trabeculations, no suspicious lesions, retrogrades WNL. TRUS-prostate volume measures, estimated 59.0 mL.?prostate tissue benign with acute and chronic inflammation. Plan--Continue Proscar. Re-evaluate in 6 months with blood work. [facility] Medical History History of COVID-19 GERD (gastroesophageal reflux disease) Elevated cholesterol Sleep apnea Asthma Anxiety Allergic rhinitis Surgical History Hx of endoscopy History of colonoscopy Family History Father No problems noted. Mother History of pancreatic cancer Social History Are you a primary manager critical care to a significant other at home: No Do you presently have visiting nurse or other home services: No Alcohol intake: current Alcohol intake frequency: holidays/special occasions only Patient Tobacco Use Status: Never used Tobacco Review of Systems Const All systems reviewed & are unremarkable except as noted in HPI and below Reports no additional complaints Eyes Reports no additional complaints ENT Reports no additional complaints Card Reports no additional complaints Resp Reports no additional complaints GI Reports no additional complaints Reports as per HPI Musc Reports no additional complaints Skin/Breast Reports system reviewed and no additional complaints, except as documented Neuro Reports no additional complaints Psych Reports no additional complaints Endo Reports no additional complaints Donato/Lymph Reports no additional complaints Aller/Immun Reports no additional complaints Telehealth Telehealth Telehealth Platform: N-Trig Location of provider rendering services: practice address Location of patient: address on file Patient Identification confirmed using: Name, : Yes Telehealth method: video Patient verbally consented to treatment: Yes Patient verbally consented to billing insurance company: Yes Patient informed of any privacy concerns related to visit: Yes Results Reviewed Results Reviewed: Date of Service: 10/01/24 EXAMINATION: MR PROSTATE WITHOUT THEN WITH IV CONTRAST HISTORY: N40.0 - Benign prostatic hyperplasia without lower urinary tract symptoms TECHNIQUE: 1.5T body coil survey of the pelvis was performed. Phase array coil imaging of the prostate was performed in multiplanar high resolution axial, coronal, sagittal fast spin echo T2 and axial T1 weighted imaging sequences. Axial diffusion imaging at intermediate and high field performed with ADC mapping. Next, 8.5 mL Gadavist was given by intravenous infusion, and dynamic axial imaging performed. 3-D reconstructions and post-processing were performed on an independent workstation by the radiologist for biopsy planning using image fusion. COMPARISON: There are no prior studies available for comparison. CLINICAL DATA: Most recent PSA: 10.43 ng/mL on 08/21/2024. PSA Density: 0.14 ng/mL squared Prostate Biopsy: Negative biopsy on 11/16/2022. FINDINGS: Prostate size: 5.7 x 5.6 x 4.5 cm. Calculated prostate volume is 74.7 mL. Hemorrhage: None. Transitional Zone: There is moderate heterogeneous nodular hypertrophy of the transitional zone. Peripheral Zone: There are 2 areas of interest in the peripheral zone as described below: Area of interest #1: Location: Right posterolateral peripheral zone in the mid gland/apex measuring up to 10 mm in size (series 7, images 21-22). DWI PI-RADS v2.1 score: 3 T2 PI-RADS v2.1 score: 4 DCE PI-RADS v2.1 score: - Overall PI-RADS v2.1 score: 3 Capsular contact: yes Extracapsular extension: None Seminal vesicle invasion: None Neurovascular bundle involvement: None Area of interest #2: Location: Left posteromedial peripheral zone at the apex measuring 8 mm (series 7, images 23-24). DWI PI-RADS v2.1 score: 3 T2 PI-RADS v2.1 score: 4 DCE PI-RADS v2.1 score: - Overall PI-RADS v2.1 score: 3 Capsular contact: yes Extracapsular extension: Equivocal Seminal vesicle invasion: None Neurovascular bundle involvement: Equivocal Seminal Vesicles/Ejaculatory Ducts: Symmetric and normal in signal and caliber. Pelvic Lymph Nodes: No obturator or internal iliac lymph nodes meeting size criteria for adenopathy. Marrow Signal: Normal marrow signal and enhancement without focal lesion identified. IMPRESSION: Areas of interest in the peripheral zones bilaterally as described above, which are equivocal clinically significant prostate carcinoma. If imaging guided biopsy is planned, sampling of these regions is recommended. PI-RADS 3: Intermediate (the presence of clinically significant cancer is equivocal) PI-RADS Assessment Categories PI-RADS 1: Very low (clinically significant cancer is highly unlikely to be present) PI-RADS 2: Low (clinically significant cancer is unlikely to be present) PI-RADS 3: Intermediate (the presence of clinically significant cancer is equivocal) PI-RADS 4: High (clinically significant cancer is likely to be present) PI-RADS 5: Very high (clinically significant cancer is highly likely to be present) Collected: 11/16/22 Location: [facility] Received: 11/16/22 Diagnosis Prostate, needle core biopsies: A. Left base lateral: Benign prostatic tissue. B. Left base medial: Benign prostatic tissue. C. Left mid lateral: Benign prostatic tissue. D. Left mid medial: Benign prostatic tissue. E. Left apex lateral: Benign prostatic tissue. F. Left apex medial: Benign prostatic tissue. G. Right base lateral: Benign prostatic tissue. H. Right base medial: Benign prostatic tissue. I. Right mid lateral: Benign prostatic tissue. J. Right mid medial: Benign prostatic tissue. K. Right apex lateral: Benign prostatic tissue. L. Right apex medial: Benign prostatic tissue. Comment: Scattered foci of acute and chronic inflammation present. Clinical History Elevated PSA Microscopic Description Microscopic sections reviewed. Material Received A. Left base lateral B. Left base medial Patient: Jose Maria Xie Age/Sex: 57/M MR#: [id number] Assessment & Plan Assessment & Plan (1) Elevated PSA: Code(s): R97.20 - Elevated prostate specific antigen [PSA] Category: Medical (2) Enlarged prostate: Code(s): N40.0 - Benign prostatic hyperplasia without lower urinary tract symptoms Category: Medical (3) History of hematuria: Code(s): Z87.448 - Personal history of other diseases of urinary system Category: Medical (4) Abnormal MRI: Code(s): R93.89 - Abnormal findings on diagnostic imaging of other specified body structures Category: Medical Plan Plan - Arrange for a targeted prostate biopsy to assess the indeterminate lesions no ashly on MRI. - Initiate prophylactic antibiotics one day prior to the procedure to minimize infection risk. Patient Instructions: The patient had an opportunity to ask questions regarding treatment plan. The patient expressed understanding and agreement with the above treatment plan. The patient is aware they should contact our office by phone for worsening of their current condition or the appearance of new symptoms. Compliance is encouraged with any medications and followup testing that is ordered. It is a privilege to be allowed the opportunity to participate in the urologic care of your patient. If you have any questions or concerns regarding treatment for the above conditions please do not hesitate to contact me. The office telephone contact is [phone]. This note is constructed in part using voice recognition software. While every effort has been made to ensure accuracy animal behaviorist errors may have been i ncluded. Yours sincerely, Bridget Saravia MD Scribe Plan - Not visible on output: Patient was informed and verbally consented to the use of an ambient scribe for clinic note documentation during this visit. Coding Level of Care Code Tele Est Pt Level 4 (32298) Complex EM visit Add On G2211 Diagnoses Elevated PSA R97.20 Enlarged prostate N40.0 History of hematuria Z87.448 Abnormal MRI R93.89
== END 2024-10-08 16:30 | disposition home or self-care (01) ==
LOC: HO.HUSH 15:20
PROVIDERS: PCP Internal Medicine; Visit Provider Urology
DX: R97.20 Elevated prostate specific antigen [PSA] (principal); N40.0 Benign prostatic hyperplasia without lower urinary tract symptoms; Z87.448 Personal history of other diseases of urinary system; R93.89 Abnormal findings on diagnostic imaging of other specified body structures
CPT/HCPCS: 99214; G2211

== ENCOUNTER 2024-12-31 11:42 | Day surgery (SDC) | payer OTHER, SELFPAY ==
--- OUTSIDE RECORDS SUMMARY | 2024-12-06 06:17 | XMS_ITS | Clinical Summary ---
Author Organization [employer] Address [address] [place] [address] [address] [place] [address] Care Team Providers Care Dietitian Consultant Name Role Phone Daniela Sinclair MD Primary Care Provide r Allergies Active Allergy Reactions Criticality Noted Date Comments Carrot Oil 12/05/2023 Celery Oil 12/05/2023 Daucus Carota 04/30/2013 Medications pravastatin (Pravachol) 20 MG tabletIndications:M ixed hyperlipidemia Take 1 tablet (20 mg) by mouth Once per day. 30 tablet 11 4 Active Blood Pressure kit 1 each 2 [...] and using an antiseptic mouthwash Pain relievers: Uuxw-rji-hlezeeb pain relievers, such as ibuprofen or acetaminophen [...] Encounters Date Type Department Care Team Description 10/01/2024 Orders Only [facility] External Provider, [facility] from Last 3 Months Immunizations Immunization Administration [...] your housing situation today? I have precious iman 01/10/[address] you li [...] Years (1 of 1 - PCV) 2016 SDOH Screening 04/01/2024 04/01/2023 FOBT 04/25/2024 04/25/2023 Depression Screening 09/11/2024 09/12/2023, 09/12/19 24 Diabetes: Hemoglobin A1C 09/11/2024 024, 09/08/2022, 06/11/2021, Additional history exists COVID-19 Vaccine ( season) 2024 09/12/2023, 03/20/2021, 07/08/2020, Additional history exists Influenza Vaccine (#1) 2024 , 06/24/2021, 05/14/2020, Additional history exists Tobacco Screening [...] Procedure Name Priority Date/Time Associated Diagnosis Comments MR MCGOWAN Routine 10/01/2024 9:05 AM EDT MR PROSTATE W AND WO CONTRAST Routine 10/01/2024 9:05 AM EDT HEMOGLOBIN A1C Routine 09/12/2023 4:22 PM [...] Recently Relevant to Health Maintenance Results * MR MCGOWAN (10/01/2024 9:05 AM EDT) Anatomical Region Laterality Modality Magnetic Resonan ce 10/01/2024 9:05 AM EDT Narrative 10/08/2024 10:02 AM EDT [address] [address] Magnetic Resonance Report Signed Patient: Jose Maria iXe MR#: [id number] 1025 : 1965 Acct:[id number] Age/Sex: 59 / M ADM Date: 10/01/24 Loc: HO.MRI Attending Dr: Bridget Saravia MD Ordering Physician: Bridget Saravia MD Date of Service: 10/01/24 Procedure(s): MR CAD Accession Number(s): [id number] cc: Bridget Saravia MD; Daniela Sinclair MD 3-D reconstructions and postprocessing were performed on an independent workstation by the radiologist for biopsy planning, using image fusion. Please see MR prostate report for description of the findings. Electronically signed by: Bart Mace MD 10/08/2024 09:59 AM EDT RP Dictated By: Bart Mace MD Signed By: <Electronically signed by Bart Mace MD in OV> 10/08/2459 DD/ 0905 TD/TT: 10/01/24 0945 Patient Scheduling Coordinator: Procedure Note Donotuseinterpreter, Image - 10/08/2024 [place] [address] Magnetic Resonance Report Signed Patient: Jose Maria Xie EMR#: [id number] 1025 : 1965Acct:[id number] Age/Sex: 59 / MADM Date: 10/01/24 Loc: HO.MRI Attending Dr: Bridget Saravia MD Ordering Physician: Bridget Saravia MD Date of Service: 10/01/24 Procedure(s): MR CAD Accession Number(s): [id number] cc: Bridget Saravia MD; Daniela Sinclair MD 3-D reconstructions and postprocessing were performed on an independent workstation by the radiologist for biopsy planning, using image fusion. Please see MR prostate report for description of the findings. Electronically signed by: Bart Mace MD 10/08/2024 09:59 AM EDT RP Dictated By: Bart Mace MD Signed By: <Electronically signed by Bart Mace MD in OV> 10/08/24 0959 DD/ 4 TD/TT: 10/01/2445 Patient Scheduling Coordinator: [facility] External Provider IMG MRI PROCEDURES Final Result * MR Prostate w and w/o Contrast (10/01/2024 9:05 AM EDT) Anatomical Region Laterality Modality Magnetic Resonan ce 10/01/2024 9:05 AM EDT Narrative 10/01/2024 10:50 AM EDT [address] [address] Magnetic Resonance Report Signed Patient: Jose Maria Xie MR#: [id number] 1025 : 1965 Acct:[id number] Age/Sex: 59 / M ADM Date: 10/01/24 Loc: HO.MRI Attending Dr: Bridget Saravia MD Ordering Physician: Bridget Saravia MD Date of Service: 10/01/24 Procedure(s): MR Prostate wo/w con Accession Number(s): [id number] cc: Bridget Saravia MD; Daniela Sinclair MD EXAMINATION: MR PROSTATE WITHOUT THEN WITH IV CONTRAST HISTORY: N40.0 - Benign prostatic hyperplasia without lower urinary tract symptoms TECHNIQUE: 1.5T body coil survey of the pelvis was performed. Phase array coil imaging of the prostate was performed in multiplanar high resolution axial, coronal, sagittal fast spin echo T2 and axial T1 weighted imaging sequences. Axial diffusion imaging at intermediate and high field performed with ADC mapping. Next, 8.5 mL Gadavist was given by intravenous infusion, and dynamic axial imaging performed. 3-D reconstructions and post-processing were performed on an independent workstation by the radiologist for biopsy planning using image fusion. COMPARISON: There are no prior studies available for comparison. CLINICAL DATA: Most recent PSA: 10.43 ng/mL on 08/21/2024. PSA Density: 0.14 ng/mL squared Prostate Biopsy: Negative biopsy on 11/16/2022. FINDINGS: Prostate size: 5.7 x 5.6 x 4.5 cm. Calculated prostate volume is 74.7 mL. Hemorrhage: None. Transitional Zone: There is moderate heterogeneous nodular hypertrophy of the transitional zone. Peripheral Zone: There are 2 areas of interest in the peripheral zone as described below: Area of interest #1: Location: Right posterolateral peripheral zone in the mid gland/apex measuring up to 10 mm in size (series 7, images 21-22). DWI PI-RADS v2.1 score: 3 T2 PI-RADS v2.1 score: 4 DCE PI-RADS v2.1 score: - Overall PI-RADS v2.1 score: 3 Capsular contact: yes Extracapsular extension: None Seminal vesicle invasion: None Neurovascular bundle involvement: None Area of interest #2: Location: Left posteromedial peripheral zone at the apex measuring 8 mm (series 7, images 23-24). DWI PI-RADS v2.1 score: 3 T2 PI-RADS v2.1 score: 4 DCE PI-RADS v2.1 score: - Overall PI-RADS v2.1 score: 3 Capsular contact: yes Extracapsular extension: Equivocal Seminal vesicle invasion: None Neurovascular bundle involvement: Equivocal Seminal Vesicles/Ejaculatory Ducts: Symmetric and normal in signal and caliber. Pelvic Lymph Nodes: No obturator or internal iliac lymph nodes meeting size criteria for adenopathy. Marrow Signal: Normal marrow signal and enhancement without focal lesion identified. MR/MR Prostate wo/w con IMPRESSION: Areas of interest in the peripheral zones bilaterally as described above, which are equivocal clinically significant prostate carcinoma. If imaging guided biopsy is planned, sampling of these regions is recommended. PI-RADS 3: Intermediate (the presence of clinically significant cancer is equivocal) PI-RADS Assessment Categories PI-RADS 1: Very low (clinically significant cancer is highly unlikely to be present) PI-RADS 2: Low (clinically significant cancer is unlikely to be present) PI-RADS 3: Intermediate (the presence of clinically significant cancer is equivocal) PI-RADS 4: High (clinically significant cancer is likely to be present) PI-RADS 5: Very high (clinically significant cancer is highly likely to be present) [employer]. MR Prostate Imaging Reporting and Data System version 2.1. http://www.acr.org/Quality-Safety/Resources/PIRADS/ Electronically signed by: Bart Mace MD 10/01/2024 10:46 AM EDT RP Dictated By: Bart Mace MD Signed By: <Electronically signed by Bart Mace MD in OV> 10/01/24 1046 DD/ 0905 TD/TT: 10/01/24 0945 Patient Scheduling Coordinator: Procedure Note Donotuseinterpreter, Image - 10/01/[address] [address] Magnetic Resonance Report Signed Patient: Jose Maria Xie EMR#: [id number] 1025 : 1965Acct:[id number] Age/Sex: 59 / MADM Date: 10/01/24 Loc: HO.MRI Attending Dr: Bridget Saravia MD Ordering Physician: Bridget Saravia MD Date of Service: 10/01/24 Procedure(s): MR Prostate wo/w con Accession Number(s): [id number] cc: Bridget Saravia MD; Daniela Sinclair MD EXAMINATION: MR PROSTATE WITHOUT THEN WITH IV CONTRAST HISTORY: N40.0 - Benign prostatic hyperplasia without lower urinary tract symptoms TECHNIQUE: 1.5T body coil survey of the pelvis was performed. Phase array coil imaging of the prostate was performed in multiplanar high resolution axial, coronal, sagittal fast spin echo T2 and axial T1 weighted imaging sequences. Axial diffusion imaging at intermediate and high field performed with ADC mapping. Next, 8.5 mL Gadavist was given by intravenous infusion, and dynamic axial imaging performed. 3-D reconstructions and post-processing were performed on an independent workstation by the radiologist for biopsy planning using image fusion. COMPARISON: There are no prior studies available for comparison. CLINICAL DATA: Most recent PSA: 10.43 ng/mL on 08/21/2024. PSA Density: 0.14 ng/mL squared Prostate Biopsy: Negative biopsy on 11/16/2022. FINDINGS: Prostate size: 5.7 x 5.6 x 4.5 cm. Calculated prostate volume is 74.7 mL. Hemorrhage: None. Transitional Zone: There is moderate heterogeneous nodular hypertrophy of the transitional zone. Peripheral Zone: There are 2 areas of interest in the peripheral zone as described below: Area of interest #1: Location: Right posterolateral peripheral zone in the mid gland/apex measuring up to 10 mm in size (series 7, images 21-22). DWI PI-RADS v2.1 score: 3 T2 PI-RADS v2.1 score: 4 DCE PI-RADS v2.1 score: - Overall PI-RADS v2.1 score: 3 Capsular contact: yes Extracapsular extension: None Seminal vesicle invasion: None Neurovascular bundle involvement: None Area of interest #2: Location: Left posteromedial peripheral zone at the apex measuring 8 mm (series 7, images 23-24). DWI PI-RADS v2.1 score: 3 T2 PI-RADS v2.1 score: 4 DCE PI-RADS v2.1 score: - Overall PI-RADS v2.1 score: 3 Capsular contact: yes Extracapsular extension: Equivocal Seminal vesicle invasion: None Neurovascular bundle involvement: Equivocal Seminal Vesicles/Ejaculatory Ducts: Symmetric and normal in signal and caliber. Pelvic Lymph Nodes: No obturator or internal iliac lymph nodes meeting size criteria for adenopathy. Marrow Signal: Normal marrow signal and enhancement without focal lesion identified. MR/MR Prostate wo/w con IMPRESSION: Areas of interest in the peripheral zones bilaterally as described above, which are equivocal clinically significant prostate carcinoma. If imaging guided biopsy is planned, sampling of these regions is recommended. PI-RADS 3: Intermediate (the presence of clinically significant cancer is equivocal) PI-RADS Assessment Categories PI-RADS 1: Very low (clinically significant cancer is highly unlikely to be present) PI-RADS 2: Low (clinically significant cancer is unlikely to be present) PI-RADS 3: Intermediate (the presence of clinically significant cancer is equivocal) PI-RADS 4: High (clinically significant cancer is likely to be present) PI-RADS 5: Very high (clinically significant cancer is highly likely to be present) [employer]. MR Prostate Imaging Reporting and Data System version 2.1. http://www.acr.org/Quality-Safety/Resources/PIRADS/ Electronically signed by: Bart Mace MD 10/01/2024 10:46 AM EDT Dictated By: Bart Mace MD Signed By: <Electronically signed by Bart Mace MD in OV> 10/01/24 1046 DD/ 0905 TD/TT: 10/01/24 0945 Patient Scheduling Coordinator: us [facility] External Provider IMG MRI PROCEDURES Final Result * (ABNORMAL) Lipid Panel with Reflex to Direct LDL (09/12/2023 4:22 PM EDT) Triglycerides 118 <150 mg/dL [facility] Comment:Desirable Triglyceri de: less than 150 mg/dLBorderline High Triglyceride 150-199 mg/dLHigh Triglyceride: 200-499 mg/dLVery High Triglyceride: greater than or equal to 5OO mg/dL Cholesterol 239(H) <200 mg/dL [facility] Comment:Desirable Cholestero l: less than 200 mg/dLBorderline High Cholesterol: 200-239 mg/dLHigh Cholesterol: greater than 239 mg/dL LDL Cholesterol Calculated 157(H) <100 mg/dL [facility] Comment:Desirable LDL: less than 100 mg/dLNear Optimal/Above Optimal LDL: 110- 129 mg/dLBorderline High LDL: 130-159 mg/dLHigh LDL: 160-189 mg/dLVery High LDL: greater than or equal to 190 mg/dL HDL Cholesterol 59 >40 mg/dL [facility] Comment:Desirable HDL: great er than 40 mg/dL Note: This HDL assay may give artificially low results in patients with liver disease. Blood 09/12/2023 4:22 PM EDT 09/12/2023 5:39 PM EDT us Daniela Carreon MD LAB BLOOD ORDERABLES Final Result [facility] [address] [place] [address] [phone] * Hemoglobin A1c (09/12/2023 4:22 PM EDT) Hemoglobin A1c 5.7 <6.0 % [facility] Comment:Hemoglobin A1C Refer ence Range Adults: 4.8 - 6.0 % Non diabetic: < 6.0 % Goal: < 7.0 %Additional Action Suggested: > 8.0 %Note: Hemoglobin A1c results are invalid for patients with abnormal amounts of HbF. Blood transfusions may impact the HbA1c concentration in the patient sample. Estimated Average Glucose 117 mg/dL [facility] Comment:eAG = Estimated ave rage glucose which is %A1C expressed asaverage glucose, using the formula of the X3N-CwlbsujLjjppwg Glucose study (ADAG), Diabetes Care, Vol.31,#8,Oct. 2007 Blood Venous blood specimen / Unknown 09/12/2023 4:22 PM EDT 09/12/2023 5:40 PM EDT us Daniela Carreon MD LAB BLOOD ORDERABLES Final Result [facility] [address] [place] [phone] * Cologuard?? colon cancer screening (04/25/2023 8:04 PM EST) Cologuard Result Negative Negative 05/04/19 24 1:53 AM EST [facility] (CLIA #:[id number]) Comment: NEGATIVE TEST RESULT. A negative Cologuard [...] (Hailey Barth al, N Engl J Med 2014;370(14):9882-2617) The normal value (reference range) for this assay is negative. COLOGUARD RE-SCREENING RECOMMENDATION: Periodic colorectal cancer screening is an important part of preventive healthcare for asymptomatic individuals at average risk for colorectal cancer. Following a negative Cologuard result, the [employer] and U.S. Multi-Society Task Force screening guidelines recommend a Cologuard re-screening interval of 3 years. References: [employer] Guideline for Colorectal Cancer Screening: https://www.cancer.org/cancer/ocnsj-ozhkjk-gzlcxg/pplcxkkli-pqaezzswn-fjfvacn/ac s-rec ommendations.html.; Dyllan HANNON, Myrna BARKER, Irene TINOCO, Colorectal Cancer Screening: Recommendations for Physicians and Patients from the U.S. Multi-Society Task Force on Colorectal Cancer Screening , Am J Gastroenterology 2017; 112:0983-7030. TEST DESCRIPTION: Composite algorithmic analysis of stool [...] (Hailey Barth al, N Engl J Med 2014;370(14):2188-3127.) Cologuard may produce a false negative or false positive result (no colorectal cancer or precancerous polyp present at colonoscopy follow up). A negative Cologuard test result does not guarantee the absence of CRC or advanced adenoma (pre-cancer). The current Cologuard screening interval is every 3 years. ([employer] and U.S. Multi-Society Task Force). Cologuard performance data in a 10,000 patient pivotal study using colonoscopy as the reference method can be accessed at the following location: www.exactlabs.com/results. Additional description of the Cologuard test process, warnings and precautions can be found at www.colTextronicsrd.com. Stool specimen (specimen) 04/25/2023 8:04 PM EST 04/27/2023 1:47 PM EST Daniela Carreon MD LAB MOLECULAR DIAGNOS TICS ORDERABLES Final Result [facility] (CLIA #:[id number]) [place] [address], * Hepatitis C Antibody Reflex (09/08/2022 11:27 AM EDT) Hepatitis C Antibody Nonreactive Nonreactive [facility] Comment:Antibodies to HCV no t detected; does not exclude early acuteHCV infection. 09/08/2022 11:2 7 AM EDT 09/08/2022 11:27 AM EDT [facility] External Provider LAB BLO OD ORDERABLES Final Result Performing Organization Address City/[facility] Co de Phone Number [facility] [address] [place] [phone] * HIV Ab/Ag ([facility]) (09/08/2022 11:27 AM EDT) HIV AB/AG Nonreactive Nonreactive [facility] Comment:HIV-1 p24 Ag and/or HIV-1/HIV-2 Ab not detected.A test result that is nonreactive does not exclude thepossibility of exposure to or infection with HIV-1 and/orHIV-2. Nonreactive results in this assay for individualswith prior exposure to HIV-1 and/or HIV-2 may be due toantigen and antibody levels that are below the limit ofdetection of this assay.The Allison Crusher Supervisor HIV Ag/Ab Combo assay result andsupplemental assay results should be interpreted inconjunction with the patient's clinical presentation,history and other laboratory results. If the results areinconsistent with clinical evidence, additional testing issuggested to confirm the result. 09/08/2022 11:2 7 AM EDT 09/08/2022 11:27 AM EDT [facility] External Provider LAB BLO OD ORDERABLES Final Result [facility] [address] [place] [address] [phone] from Last 3 Months or Most Recently Relevant to Health Maintenance Insurance , [address] [place] [address] Care Teams Dietitian Consultant Relationship Specialty Start Date End Date Dainela Sinclair MD [address] [place] [address] PCP - General Family Medicine 11/16/17
--- OUTSIDE RECORDS SUMMARY | 2024-12-06 06:17 | XMS_ITS | Data Portability ---
Author Organization [place] - [facility], Allergy Address [address] [place] [phone] Care Team Providers Care Athletic Field Custodian Name Role Phone RUBY COLLIER Primary Care Provider TERRENCE OWUSU Referring Provider Assessment Encounter Date [...] Address Organization Details Recorded Time Submandibular sialolithiasis 628006885 Active 2024 DEBRA Porter [facility] 15:26:05 Sialoadenitis of the submandibular gland 436139688 Active 2024 DEBRA Porter [facility] 15:26:13 Swallowing painful 22973037 Active 2024 Josey gutierres [place] [facility] 15:30:24 Problem Notes None recorded. Procedures Surgical History Date Name Laterality Status Provider Name and Address Organization Details Recorded Time 03/13/19 25 Fiberoptic Laryngoscopy (Comprehensive) completed Josey Todd [facility] 03/13/2024 13:26:05 Imaging Results None recorded. Procedure [...] Address Organization Details Last Updated DateTime 03/13/2024 [address] g 31.6 kg/m2 162.56 cm Lyssa Thibodeaux [facility] 03/13/2024 13:12:42 Social History None recorded. Functional Status None recorded. Mental Status None recorded. Family History Nothing Reported. Medical History No medical history recorded. Past Encounters Encounter ID Performer Location Encounter Start Date Encounter Closed Date Diagnosis/Indication Diagnosis SNOMED-CT Code Diagnosis ICD10 Code Diagnosis IMO Codes Diagnosis Note [id number] JOSEY TODD PA-C [facility] [address] [phone] 03/13/2024 13:07:46 03/13/2024 13:49:04 Sialoadenitis of the submandibular gland 862089688 K11.20 Swallowing painful 49440 002 R13.19 Health Concerns Section Related Observation LastModified by Organization Detai ls LastModified Time None Recorded Concern Status LastModified by Organization Details LastModified Time None Recorded Advance Directives Directive None Recorded Payers Insurance Date Sequence Insurance Name Policy Number Policy Bean Covered Member ID Bean Member ID Guarantor Name 06/07/[address] [place] [id number] Jose Maria Hernandezdo [id number] Jose Mariahilario HinesXie Notes Date Note Type Note Provider Name and Address Organization Details Recorded Time 03/13/2024 text/html ROS as noted in the HPI 58 year old male new patient presents for evaluation of the throat. Reports about 3 months ago he had some soft tacos that seemed to get stuck on the left side of the throat. He had some pain that persisted for weeks thereafter and has since become intermittent. When he has some foods, water or coffee, or brushes his teeth, he has a painful sensation under the jaw on the left that can trigger a cough and a feeling of dyspnea. Attributes the cough and breathlessness to the discomfort; there is no choking sensation. Feels like lemon juice in a cut. Sometimes the pain lasts all day and sometimes he will have a few days without pain. Currently has not had the pain for a few weeks. There is no honey dysphagia though the swallow sometimes feels more effortful. There is no globus sensation. There have been no voice changes, fevers, night sweats, nor unintentional weight loss. He is on a diet through his PCP, started about a year ago. He reports he sometimes has heartburn. Used to take prilosec but has been able to give it up since changing his diet. There is no cough when not swallowing, nor excessive throat clearing. He does not drink much water at all. Down to 3-4 cups of coffee per day, used to drink about 8 before this diet change. Many years ago he had some bone removed from the jaw on both sides when he had his wisdom teeth removed. Was never a smoker, never abused alcohol. Josey gutierres [place] - [facility] 03/13/2024 15:30:44
--- NOTE | 2024-12-26 14:34 | HO.ANESPROP2 ---
Documented by User: Alexandra Hall NP 12/26/24 14:36 HPI - Anesthesia Eval Consult details Narrative: 59 yr old male for ?Targeted Prostate Needle Biopsy s/p prostate needle biopsy with GA, LMA 4 11/2022 CAYETANO GERD: on PPI PMFSH Active Problems Active Problems: All Active Problems Abnormal MRI (Acute) History of hematuria (Acute) Elevated PSA (Acute) Bladder wall thickening (Acute) Enlarged prostate (Acute) Gross hematuria (Acute) Hemorrhoids (Acute) Colon cancer screening (Acute) High cholesterol (Acute) GERD (gastroesophageal reflux disease) (Acute) Asthma (Acute) CAYETANO (obstructive sleep apnea) (Acute) Past Medical History Medical History Seasonal allergies History of COVID-19 GERD (gastroesophageal reflux disease) Elevated cholesterol Sleep apnea Asthma Anxiety Allergic rhinitis Family History Family History Father No problems noted. Mother History of pancreatic cancer Surgical History Surgical History History of cystoscopy (11/2022) Hx of endoscopy History of colonoscopy (03/2020) History of Problems with Anesthesia: No Social History Social History Are you a primary care transition coordinator to a significant other at home: No Do you presently have visiting nurse or other home services: No Alcohol intake: current Alcohol intake frequency: holidays/special occasions only Patient Tobacco Use Status: Never used Tobacco Use of substances other than those prescribed or required for medical reasons: No Have you been hit, kicked, punched, or otherwise hurt by someone within the past year? If so, by whom?: No Are you DNR?: No Advance Directives: No Advance Directives Information Provided: Yes Advance Directives on File: No Meds Allergies Allergy/AdvReac Type Severity Reaction Status Date / Time carrot Allergy Intermediate Itching Verified 12/27/24 10:54 Seasonal Allergies Allergy Intermediate Hives, Verified 12/27/24 10:54 itching, sneezing flour Allergy Intermediate Itching Uncoded 12/27/24 10:54 Home Medications ?Medication ?Instructions ?Recorded ?Confirmed ?Last Taken ?Type albuterol sulfate 90 mcg/actuation 2 puff PO Q4-6H PRN Shortness Of 03/18/20 12/27/24 Unknown History aerosol inhaler (ProAir HFA) Breath omeprazole 20 mg capsule,delayed 1 cap PO DAILY PRN Heartburn 03/18/20 12/27/24 11/16/22 07:45 History release pravastatin 20 mg tablet 20 mg PO DAILY 10/08/24 12/27/24 Unknown History Assessment and Plan Final Anesthetic Review History of Problems with Anesthesia: No Documented by User: Jo Olivas MD 12/31/24 13:38 PMFSH Past Medical History Medical History Seasonal allergies History of COVID-19 GERD (gastroesophageal reflux disease) Elevated cholesterol Sleep apnea Asthma Anxiety Allergic rhinitis Family History Family History Father No problems noted. Mother History of pancreatic cancer Family history of problems with anesthesia: No Surgical History Surgical History History of cystoscopy (11/2022) Hx of endoscopy History of colonoscopy (03/2020) Social History Social History Are you a primary care transition coordinator to a significant other at home: No Do you presently have visiting nurse or other home services: No Alcohol intake: current Alcohol intake frequency: holidays/special occasions only Patient Tobacco Use Status: Never used Tobacco Use of substances other than those prescribed or required for medical reasons: No Have you been hit, kicked, punched, or otherwise hurt by someone within the past year? If so, by whom?: No Are you DNR?: No Advance Directives: No Advance Directives Information Provided: Yes Advance Directives on File: No Meds Allergies Allergy/AdvReac Type Severity Reaction Status Date / Time carrot Allergy Intermediate Itching Verified 12/27/24 10:54 Seasonal Allergies Allergy Intermediate Hives, Verified 12/27/24 10:54 itching, sneezing flour Allergy Intermediate Itching Uncoded 12/27/24 10:54 Home Medications ?Medication ?Instructions ?Recorded ?Confirmed ?Last Taken ?Type albuterol sulfate 90 mcg/actuation 2 puff PO Q4-6H PRN Shortness Of 03/18/20 12/27/24 Unknown History aerosol inhaler (ProAir HFA) Breath omeprazole 20 mg capsule,delayed 1 cap PO DAILY PRN Heartburn 03/18/20 12/27/24 11/16/22 07:45 History release pravastatin 20 mg tablet 20 mg PO DAILY 10/08/24 12/27/24 Unknown History Exam Airway Mallampati Class: II TM Dist: >3cm Neck ROM: Full Heart: rrr Lungs: cta Assessment and Plan Assessment Anesthesia Assessment: Anesthesia Plan Discussed and Chart Reviewed Final Anesthetic Review Family History of Problems with Anesthesia: No NPO: Yes ASA Class: II Final Preanesthetic Review: No Changes in Pt Med Stat, Meds/Allgs Chart Reviewed, Consent Obtained/Reviewed and Anes Risks/Benef Reviewed Patient Risk: Low Procedure Risk: Low Anesthetic Plan Anesthetic Plan: GA, MAC: and Agree w/ Assess. and Plan Disposition: Standard PACU
[2024-12-31 12:16] VITALS: BP 121/82; PULSE 77; RESP 16; TEMP 37.2; O2SAT 96
[2024-12-31] MEDS: Lactated Ringers 1,000 ML 100 ML IVCONT (12:25)
--- NOTE | 2024-12-31 13:34 | P.HPSUR_ITS ---
Pre-Procedural Eval Section A - 24 Hr Update-Section A only Date of Service: 12/31/24 The patient is an INPATIENT: No Changes since office visit: No Cold of Flu in the past 2 weeks, No New Medical Problems, No Changes in Medication and No Patient answered all questions The patient has been examined within 24 hours of the surgical procedure. The History & Physical has been completed within 30 days and I have reviewed it.: Yes Section B - Complete if H&P > 30 days Chief Complaint: Elevated prostate specific antigen [PSA] Details of Present Illness: Transperineal stereotactic ultrasound guided MRI tar geted prostate biopsy Allergies: Allergies Allergy/AdvReac Type Severity Reaction Status Date / Time carrot Allergy Intermediate Itching Verified 12/27/24 10:54 Seasonal Allergies Allergy Intermediate Hives, Verified 12/27/24 10:54 itching, sneezing flour Allergy Intermediate Itching Uncoded 12/27/24 10:54 Review of Systems Sugical H&P ROS: Negative: Constitution, Cardiovascular, Respiratory, Neurological, Psychiatric, Hem-Onc, Allergic/Immunologic, Gastrointestinal, Genitourinary, Musculoskeletal, Integumentary, Endocrine and Eyes/Ears/Nose/Throat Exam Surgical H&P Exam: Normal: HEENT, Normal: Heart, Normal: Lungs, Normal: Extremities, Normal: Abdomen, Normal: Skin and Normal: Neurological Plan Diagnosis/Plan: Unchanged I have reviewed the history and physical and performed a pertinent physical examination on my patient. No changes have occurred unless specified. Time Spent With Patient Time: Total time managing care of this patient today ____ minutes.
[2024-12-31 14:37] VITALS: BP 107/62; PULSE 70; RESP 16; TEMP 36.4; O2SAT 98
--- NOTE | 2024-12-31 14:37 | W.PM.OPN ---
Operative Note Operative Note Date of Service: 12/31/24 Narrative: Preoperative diagnosis: Elevated PSA - prior negative biopsy Postoperative diagnosis: Elevated PSA - prior negative biopsy Procedure: 1. transrectal ultrasound-guided pudendal nerve block 2. Prostate Ultrasound image acquisition, registration and 3D model creation 3. Prostate MRI Model and needle target fusion with intraoperative prostate ultrasound 3. Transperineal Ultrasound Guided Sterotactic prostate biopsy including saturation biopsy of MRI identified targeted prostate lesions Surgeon: Dr. Landon Pierson Anesthetic: LMA plus local Indications for procedure: Elevated PSA - 10.4 - prior negative biopsy, prostate MRI 75 g - identified PI-RADS 3/4 lesions - 10 mm right posterolateral peripheral zone mid gland, 8 mm left posteromedial peripheral zone apex Procedure: After informed consent was verified, the patient was brought into the procedure area. Patient identity confirmed. Perioperative antibiotics confirmed. Safety pause time out performed. Anesthesia performed per protocol. Scrotum taped out of operative area. Iodine prep used. Perineal injection of local anesthetic. Digital guided prostate pudendal nerve block performed with 10 cc of 1% lidocaine. 5cc each side. Ultrasound probe was placed per rectum. Ultrasound probe stabilized on a prostate stepper with attached perineal sterotactic targeting grid with 5mm interval holes. Perineal targeting grid A-C covering right prostate and c-F covering left prostate. Numbers 1.0-2.5 covering posterior prostate and 2.5-4.0 covering anterior prostate. [employer] software and hardware platform was used for prostate ultrasound image acquisition, ultrasound image registration, 3D model creation and MRI-US fusion image overlay. Ultrasound placement was made with external grid calibration for height and prostate diameter in both the transverse and longitudinal planes. Prostate was aligned midline and reviewed for transverse and sagittal positioning. The bottom of the prostate was aligned with the 1.0 horizontal positioning on the guidance grid. Once perineal grid calibration was confirmed prostate ultrasound data acquisition was performed with ultrasound sweeping in a transverse fashion. Images were acquired moving from prostate base to apex. This was performed in an even fashion with approx 0.5cm extra length at base and apex. The acquired ultrasound images were then registered to create 3D model boundaries in the operating room. [place] markers were applied to ultrasound images in transverse and longitudinal sterotactic fashion. [place] and base were marked first followed by conformational boundaries. A three dimensional sterotactic ultrasound model was created using [employer] software. The model was reviewed against acquired ultrasound images and perineal grid alignment was performed. The planned perineal needle sterotactic biopsies, based on prior acquisition of MRI imaging, was overlaid on the ultrasound 3D images and biopsies confirmed through ultrasound review. Adjustments were then made between real time and projected model biopsy locations. Based on pre-planning evaluation 16 biopsy locations had been identified. Needle biopsies been identified according to template grid positions. Modelled locations are reviewed in real time for 3D mapping of location. Six biopsies were part of saturation planning. Identified biopsy locations included 2 PI-RADS 3 targets - 10 mm right posterolateral peripheral zone mid gland, 8 mm left posteromedial peripheral zone apex identified on MRI. Biopsies were performed moving from far left lateral inferior to far right lateral inferior. Non-target biopsies were distributed evenly between left and right prostate lobes. Sterotactic targeting of biopsy needle location was confirmed in real time with longitudinal US prior to biopsy needle firing. Cognitive adjustments to preplanned positions were made as necessary to ensure samples were taken from planned prostate areas particularly regarding depth of biopsy with respect to prostate apex and base. Based on planning template biopsies were targeted for the upper left and upper right quadrants of the prostate. The most lateral of these were found to have crowding from the pubic arch. Target was adjusted lower in order to advanced needle. Saturation needle biopsy was performed on the two MRI targeted lesions. Three needle targets were taken from each lesion. Upon biopsy completion probe was removed from the rectum. The patient tolerated the procedure well and was transferred to stable condition in the PACU. Printed instructions regarding antibiotic use and common side effects such as low-grade temperature, potential infection and bleeding were given Pathology: 16 needle prostate biopsy CPT 17320 Modifier 22 for complexity of procedure execution (Saturation Perineal prostate biopsy) CPT code 90589: Transrectal ultrasound; this is a diagnostic test for evaluation of the prostate and surrounding structures, looking for abnormalities or suspicious areas worrisome for cancer CPT code 15406: Ultrasonic guidance for needle placement (eg, biopsy, aspiration, injection, localization device), imaging supervision and interpretation CPT 38643: 3D rendering with interpretation and reporting of computed tomography (CT), MRI, ultrasound, or other tomographic modality with image postprocessing under concurrent supervision; not requiring image postprocessing on an independent workstation
[2024-12-31 14:40] VITALS: BP 106/67; PULSE 67; RESP 16; O2SAT 98
[2024-12-31 14:45] VITALS: BP 108/65; PULSE 66; RESP 16; O2SAT 98
[2024-12-31 14:50] VITALS: BP 110/65; PULSE 67; RESP 16; O2SAT 98
[2024-12-31 15:03] VITALS: BP 127/88; PULSE 78; RESP 16; TEMP 36.1; O2SAT 98
== END 2024-12-31 15:38 | disposition home or self-care (01) ==
PROVIDERS: PCP Internal Medicine; Visit Provider Urology
PROC: (CPT 55700; principal; 2024-12-31 14:10)
DX: N40.0 Benign prostatic hyperplasia without lower urinary tract symptoms (principal); R97.20 Elevated prostate specific antigen [PSA]; Z87.448 Personal history of other diseases of urinary system; R93.89 Abnormal findings on diagnostic imaging of other specified body structures; J45.909 Unspecified asthma, uncomplicated; G47.33 Obstructive sleep apnea (adult) (pediatric); E78.00 Pure hypercholesterolemia, unspecified; K21.9 Gastro-esophageal reflux disease without esophagitis; F41.9 Anxiety disorder, unspecified; Z79.899 Other long term (current) drug therapy
CPT/HCPCS: 55706; 88305; J2003; J2250; J2405; J2704

== ENCOUNTER → 2024-12-31 11:42 | Outpatient (BNV) | payer OTHER, SELFPAY | PROVIDERS: PCP Internal Medicine; Visit Provider Urology | DX: R97.20 Elevated prostate specific antigen [PSA] (principal) | CPT/HCPCS: 55706; 76376 ==

== ENCOUNTER 2025-01-11 14:04 | Outpatient (AMB) | payer OTHER, SELFPAY ==
--- OUTSIDE RECORDS SUMMARY | 2025-01-10 11:20 | XMS_ITS | Encounter Summary ---
Author Organization [employer] Address [address] [place] [address] Care Team Providers Care Dementia Program Director Name Role Phone Daniela Sinclair MD Primary Care Provide r Reason for Referral * Consultation (Routine) - Authorized Specialty Diagnoses / Procedures Referred By Contnadia t Referred To Contact Behavioral Health Diagnoses Situational anxiety Stress and adjustment reaction Procedures Referral to Behavioral Health Daniel Jefferson MD [address] [place] [id number] Phone: tel: fax: Referral ID Status Reason Start Date Expiration Date Visits Requested Visits Authorized [id number] Authorized Specialty Services Required 01/10/2025 01/10/2026 1 1 Reason for Visit * Reason Comments Headache Encounter Details Date Type Department Care Team ([facility] st Contact Info) Description 01/10/2025 11:20 AM EST Office Visit [facility] [address] [place] [address] [phone] Daniel Jefferson MD [address] [place] [address] [phone] Situational anxiety (Primary Dx); Stress and adjustment reaction Social History Tobacco Use Types Packs/Day Years [...] Orientation Straight 01/04/2022 10 :16 AM EDT documented as of this encounter Last Filed Vital Signs Vital Sign Reading Time Taken Comments Blood Pressure 132/82 01/10/2025 11:28 AM EST Pulse 80 01/10/2025 11:28 AM EST Temperature 36.7 C (98 F) 01/10/2025 11:07 AM EST Respiratory Rate 18 01/10/2025 11:07 AM EST Oxygen Saturation 98% 01/10/2025 11:07 AM EST Inhaled Oxygen Concentration - - Weight 88 kg (194 lb) 01/10/2025 11:07 AM EST Height - - Body Mass Index 32.28 05/21/2024 2:21 PM EDT documented in this encounter Progress Notes * Daniel Jefferson MD - 01/10/2025 11:20 AM EST Subjective History was provided by the patient. Jose Maria Xie is a 59 y.o. male who presents for evaluation of intermittent SHEN associated with elevated BP. Admits to anxiety and White-Coat Hypertension. His dog recently 1 month ago from hit-and-run. He also just had a prostate biopsy 1 week ago. Has been under increased stress due to these. Previously found to have elevated PSA, followed by Urology. Transperineal U/S-guided stereotactic prostate biopsy (12/31/2024) showed 16 out of 16 benign prostatic tissue; scattered foci of acute and chronic inflammation. SHEN is mostly in the occipital and posterior neck area. Denies any vision change. No N/V. 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 Objective Vitals: 01/10/25 1107 01/10/25 1128 BP: (!) 160/93 132/82 BP Location: Right arm Left arm Patient Position: Sitting Sitting BP Cuff Size: Adult Large adult Pulse: 72 80 Resp: 18 Temp: 98 ??F (36.7 ??C) TempSrc: Temporal SpO2: 98% Weight: 194 lb (88 kg) Physical Exam Vitals reviewed. Constitutional: General: He is not in acute distress. Appearance: Normal appearance. He is not ill-appearing, toxic-appearing or diaphoretic. HENT: Head: Normocephalic and atraumatic. Right Ear: External ear normal. Left Ear: External ear normal. Nose: Nose normal. Mouth/Throat: Mouth: Mucous membranes are moist. Pharynx: Oropharynx is clear. Eyes: Extraocular Movements: Extraocular movements intact. Conjunctiva/sclera: Conjunctivae normal. Pupils: Pupils are equal, round, and reactive to light. Cardiovascular: Rate and Rhythm: Normal rate and regular rhythm. Heart sounds: Normal heart sounds. Pulmonary: Effort: Pulmonary effort is normal. No respiratory distress. Breath sounds: Normal breath sounds. No wheezing, rhonchi or rales. Chest: Chest wall: No tenderness. Musculoskeletal: General: Normal range of motion. Cervical back: Normal range of motion and neck supple. Lymphadenopathy: Cervical: No cervical adenopathy. Skin: General: Skin is warm and dry. Neurological: General: No focal deficit present. Mental Status: He is alert and oriented to person, place, and time. Cranial Nerves: No cranial nerve deficit. Sensory: No sensory deficit. Motor: No weakness. Coordination: Coordination normal. Gait: Gait normal. Deep Tendon Reflexes: Reflexes normal. Psychiatric: Mood and Affect: Mood normal. Behavior: Behavior normal. Thought Content: Thought content normal. Judgment: Judgment normal. No visits with results within 2 Day(s) from this visit. Latest known visit with results is: Orders Only on 11/05/2023 Component Date Value Ref Range Status PSA,Total (Free>4and<10) 11/05/2023 3.99 0.00 - 4.00 ng/mL Final A Free PSA was not performed: The percentage of Free PSA can be used to enhance the differentiationof prostate cancer from benign prostatic disease in subjects whose PSA levels are between 4.0 and 10.0 ng/mL. For subjects whose PSA levels are below 4.0 or above 10.0 ng/mL, the risk of prostate cancer is determined on the basis of the PSA alone. Therefore the % Free PSA is recommended only for tho se subjects whose PSA levels are between 4.0 and 10.0 ng/mL.PSA methodology: Allison Alinity i ChemiluminescentMicroparticle Immunoassay (CMIA) Prostate Specific Antigen 08/21/2024 10.43 (H) <0.05 - 4.0 ng/mL Final PSA methodology: Allison Alinity i ChemiluminescentMicroparticle Immunoassay (CMIA) Jose Maria was seen today for headache. Diagnoses and all orders for this visit: Situational anxiety (Primary) - propranolol (Inderal) 10 MG tablet; Take 1 tablet (10 mg) by mouth if needed each day (anxiety). - Referral to Behavioral Health; Future Stress and adjustment reaction - Referral to Behavioral Health; Future Patient presents to [facility] with elevated BP and on-and-off occipital SHEN Repeat BP within normal Underlying White-Coat Hypertension Patient with increased situational anxiety/stress, often with catastrophizing tendency His dog recently 1 month ago from hit-and-run Also just had a prostate biopsy 1 week ago (benign prostatic tissues) SHEN is mostly in the occipital and posterior neck area Non-focal, normal neurologic exam with intact CN 2-12 No focal weakness Trial of Prapranolol 10mg daily prn discussed for anxiety Potential adverse effects of the medication reviewed Monitor BP at home Advised to contact the clinic if he feels he needs the medication more frequently than 3x/week Will consider a maintenance agent Schedule a follow-up appointment with PCP Referral for BH therapy Indications for UC/ER use reviewed Advised to contact the clinic if persistent or worsening symptoms documented in this encounter Plan of Treatment Upcoming Encounters Date Type Department Care Team (Late st Contact Info) Description 03/20/2025 11:15 AM EST Office Visit [facility] [address] [place] [address] Daniela Sinclair MD [address] [place] [address] documented as of this encounter Visit Diagnoses Diagnosis Situational anxiety- Primary Stress and adjustment reaction documented in this encounter Additional Health Concerns Assessment Noted Time PHQ-9 Depression Total Score: 0 09/12/19 24 3:54 PM EDT documented as of this encounter Care Teams Dementia Program Director Relationship Specialty Start Date End Date Daniela Sinclair MD [address] [place] [phone] PCP - General Family Medicine 11/16/17 documented as of this encounter
--- NOTE | 2025-01-11 14:04 | MHC.OFFVIS ---
Intake Visit Reasons: Prostate biopsy results Intake Note: Patient is Present for Follow Up Biopsy Results Urology Medication: Finasteride Antibiotic Allergies: None Blood Thinners: None Underwater Trapper Required: No Accompanied by: Self / Same As Patient Allergies carrot Allergy (Intermediate, Verified 01/11/25 14:05) Itching Seasonal Allergies Allergy (Intermediate, Verified 01/11/25 14:05) Hives, itching, sneezing flour Allergy (Intermediate, Uncoded 01/11/25 14:05) Itching HPI Comments Details: Telemedicine Evaluation 15 min Consultation [facility] Video 01/29 follow-up for targeted prostate biopsy - biopsy shows chronic prostate inflammation Reassurance provided Six-month follow-up PSA 10/08/24--Gilberto is an 8 Gilberto is a 59-year-old male of followed for elevated PSA telehealth follow-up today to review MRI of prostate History of Present Illness - The patient is a 59-year-old male presenting with elevated prostate-specific antigen (PSA). - Recent MRI on 10/01/24 showed two indeterminate areas in the prostate classified as PIRADS 3. - Previous prostate biopsies on 11/16/22 were benign. Results - MRI of the prostate performed on 10/01/24 showed two areas classified as PIRADS 3, indicating indeterminate risk for clinically significant cancer. - Previous prostate biopsies on 11/16/22 were benign Plan - Arrange for a targeted prostate biopsy to assess the indeterminate lesions noted on MRI. - Initiate prophylactic antibiotics one day prior to the procedure to minimize infection risk. 08/27/24-- - The patient is a 59-year-old male presenting for follow-up of elevated PSA levels. - History of elevated PSA levels with a prostate biopsy on November 16, 2022, showing benign prostate tissue. - PSA levels were 6.2 on October 14, 2022, 3.65 on June 08, 2023, 3.99 on November 05, 2023, and increased to 10.43 on August 21, 2024. - The patient was prescribed Proscar, but there was a miscommunication regarding the continuation of the medication, leading to a nine-month lapse in treatment. - The patient reports no urinary symptoms and feels generally well. Results - PSA on October 14, 2022: 6.2 - PSA on June 08, 2023: 3.65 - PSA on November 05, 2023: 3.99 - PSA on August 21, 2024: 10.43 - Prostate biopsy on November 16, 2022: Benign prostate tissue 11/28/23--Jose Maria is a 58-year-old male who presents today for a follow-up. He is followed for elevated PSA. s/p prostate biopsy 11/16/22 - results benign prostate tissue. He is prescribed proscar 5 mg daily. He states his is voiding without difficulty. Denies dysuria, recurrent gross hematuria. He had repeat PSA 11/05/23 - discsuss results - 3.99 ng/mL is stable. Plan cont proscar. 05/30/23--Jose Maria is a 57-year-old male who presents today for a follow-up. He is followed for elevated PSA. s/p prostate biopsy 11/16/22 - results benign prostate tissue. He is prescribed proscar 5 mg daily. He states his is voiding without difficulty. Denies dysuria, recurrent gross hematuria. He had repeat PSA 06/08/23 - discsuss results - 3.65 ng/mL. 11/29/2022?He is followed today for Post OP Cysto as outpatient with bilateral retrogrades and TRUS prostate bx He was last seen by me on 10/20/2022 for elevated PSA. His procedure was done on 11/16/2022. Cystoscopy findings: prostatic urethra bilobar enlargement, without an obstructiv median lobe; bladder wall thickening, mild to moderate trabeculations, no suspicious lesions, retrogrades WNL. TRUS-prostate volume measures, estimated 59.0 mL.?prostate tissue benign with acute and chronic inflammation. Plan--Continue Proscar. Re-evaluate in 6 months with blood work. [facility] Medical History Seasonal allergies History of COVID-19 GERD (gastroesophageal reflux disease) Elevated cholesterol Sleep apnea Asthma Anxiety Allergic rhinitis Surgical History History of cystoscopy (11/2022) Hx of endoscopy History of colonoscopy (03/2020) Family History Father No problems noted. Mother History of pancreatic cancer Social History Are you a primary reproductive healthcare assistant to a significant other at home: No Do you presently have visiting nurse or other home services: No Alcohol intake: current Alcohol intake frequency: holidays/special occasions only Patient Tobacco Use Status: Never used Tobacco Review of Systems Const All systems reviewed & are unremarkable except as noted in HPI and below Reports no additional complaints Resp Reports no additional complaints GI Reports no additional complaints Reports as per HPI Musc Reports no additional complaints Physical Exam Telemedicine evaluation Appropriate responses Regular breathing rate and rhythm HEENT Head: Yes normal to inspection Ears: hearing grossly normal bilaterally Eyes General: appearance normal, both eyes and all related structures Neck Neck: Yes normal visual inspection Chest Chest palpation & inspection: normal inspection of the chest Resp Effort & Inspection: normal respiratory effort and able to speak in complete sentences Telehealth Telehealth Telehealth Platform: [employer] Location of provider rendering services: practice address Location of patient: address on file Patient Identification confirmed using: Name, : Yes Telehealth method: video Patient verbally consented to treatment: Yes Patient verbally consented to billing insurance company: Yes Patient informed of any privacy concerns related to visit: Yes Minutes spent on Phone/Video with Pt.: 15 Assessment & Plan Assessment & Plan (1) Elevated PSA: Code(s): R97.20 - Elevated prostate specific antigen [PSA] Category: Medical (2) Enlarged prostate: Code(s): N40.0 - Benign prostatic hyperplasia without lower urinary tract symptoms Category: Medical Plan Six-month follow-up PSA Orders: Orders PSA,Total (Free>4and<10) 6 Months N40.0 - Benign prostatic hyperplasia without lower urinary tract symptoms Patient Instructions: This note is constructed using voice recognition software. 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 Imaging studies, laboratory and physical exam results were discussed and reviewed in detail. No major barriers to patient understanding were identified. An opportunity to ask questions regarding the treatment plan was provided. All questions were answered. The patient expressed understanding and agreement with the above treatment plan. The patient is aware they should contact our office by phone for worsening of their current condition or the appearance of new urologic symptoms. Compliance is encouraged with any medications and followup testing that is ordered. It is a privilege to participate in the urologic care of your patient. If you have any questions or concerns regarding treatment for the above conditions, or other urologic issues, please do not hesitate to contact me. The office telephone contact is [phone]. Sincerely, Dr Landon Pierson MD, [facility] - Urology Compassionate Specialist Care for the Genitourinary System Coding Level of Care Code Tele Est Pt Level 3 (33543) Complex EM visit Add On G2211 Diagnoses Elevated PSA R97.20 Enlarged prostate N40.0
--- OUTSIDE RECORDS SUMMARY | 2025-01-11 15:51 | XMS_ITS | Data Portability ---
Author Organization [place] - [facility], Allergy Address [address] [place] [id number] Care Team Providers Care Security Controls Assessor Name Role Phone RUBY COLLIER Primary Care Provider TERRENCE OWUSU Referring Provider [phone] Assessment Encounter Date Assessment Date Assessment LastModified [...] Address Organization Details Recorded Time Submandibular sialolithiasis 990174468 Active 2024 DEBRA Porter [facility] 15:26:05 Sialoadenitis of the submandibular gland 914238465 Active 2024 DEBRA Porter [facility] 15:26:13 Swallowing painful 64445543 Active 2024 Josey gutierres [place] [facility] 15:30:24 Problem Notes None recorded. Procedures Surgical History Date Name Laterality Status Provider Name and Address Organization Details Recorded Time 03/13/19 25 Fiberoptic Laryngoscopy (Comprehensive) completed Josey Todd [facility] 03/13/2024 13:26:05 Imaging Results None recorded. Procedure [...] Address Organization Details Last Updated DateTime 03/13/2024 79348 g 31.6 kg/m2 162.56 cm Lyssa Thibodeaux [facility] 03/13/2024 13:12:42 Social History None recorded. Functional Status None recorded. Mental Status None recorded. Family History Nothing Reported. Medical History No medical history recorded. Past Encounters Encounter ID Performer Location Encounter Start Date Encounter Closed Date Diagnosis/Indication Diagnosis SNOMED-CT Code Diagnosis ICD10 Code Diagnosis IMO Codes Diagnosis Note [id number] JOSEY TODD PA-C [facility] [address] [id number] 03/13/2024 13:07:46 03/13/2024 13:49:04 Sialoadenitis of the submandibular gland 987988493 K11.20 Swallowing painful 31329 002 R13.19 Health Concerns Section Related Observation LastModified by Organization Detai ls LastModified Time None Recorded Concern Status LastModified by Organization Details LastModified Time None Recorded Advance Directives Directive None Recorded Payers Insurance Date Sequence Insurance Name Policy Number Policy Bean Covered Member ID Bean Member ID Guarantor Name 06/07/[address] [place] [address] [id number] Jose Maria Hernandezdo [id number] Jose Mariahilario HinesXie Notes Date Note Type [...] gutierres [place] - [facility] 03/13/2024 15:30:44
--- OUTSIDE RECORDS SUMMARY | 2025-01-11 15:51 | XMS_ITS | Clinical Summary ---
Author Organization [employer] Address [address] [place] [address] Care Team Providers Care Operation Specialist Name Role Phone Daniela Sinclair MD Primary Care Provide r Allergies Active Allergy Reactions Criticality Noted Date Comments Carrot Oil 12/05/2023 Celery Oil 12/05/2023 Daucus Carota 04/30/2013 Medications sucralfate (Carafate) 1 GM/10ML suspension Take 10 mL (1 g) by mouth if needed in the morning, at noon, and at bedtime (throat discomfort) . 946 mL 1 12/21/19 24 Active omeprazole OTC (PriLOSEC OTC) 20 MG EC tabletIndications: Gastroesophageal reflux disease, unspecified whether esophagitis present Take 1 tablet (20 mg) by mouth before breakfast. Do not crush, chew, or split. 90 tablet 3 05/22/19 25 026 Active pravastatin (Pravachol) 20 MG tabletIndications: Mixed hyperlipidemia TAKE 1 TABLET BY MOUTH EVERY DAY 30 tablet 11 12/21/19 25 Active propranolol (Inderal) 10 MG tabletIndications: Situational anxiety Take 1 tablet (10 mg) by mouth if needed each day (anxiety). 30 tablet 01/11/20 25 025 Active pravastatin (Pravachol) 20 MG tabletIndications: Mixed hyperlipidemia Take 1 tablet (20 mg) by mouth Once per day. 30 tablet 11 12/05/19 24 025 Discontinued Blood Pressure kit 1 each 2 times daily. 1 kit 12/21/19 24 025 Active Problems Problem Noted Date Diagnosed Date [...] and using an antiseptic mouthwash Pain relievers: Awym-ler-ialvuru pain relievers, such as ibuprofen or acetaminophen [...] Encounters Date Type Department Care Team Description 01/10/2025 11:20 AM EST Office Visit [facility] [address] [place] [address] Daniel Jefferson MD Situational anxiety (Primary Dx); Stress and adjustment reaction 01/10/2025 Travel 12/20/2024 Refill [facility] [address] [place] [address] Daniela Sinclair MD Mixed hyperlipidemia from Last 3 Months Immunizations Immunization Administration [...] (194 lb) 01/10/2025 11:07 AM EST Height 165.1 cm (5' 5 ) 05/21/2024 2:21 PM EDT Body Mass Index 32.28 05/21/2024 2:21 PM EDT Plan of Treatment Upcoming Encounters Date Type Department Care Team (Late st Contact Info) Description 03/20/2025 11:15 AM EST Office Visit [facility] [address] [place] [address] Daniela Sinclair MD [address] [place] [address] Health Maintenance Due Date Last Done Comments CT Colonography 1965 Colonoscopy 1965 FIT 1966 Sigmoidoscopy 1965 Disability Screening 1966 Alcohol/Substance Use Screening 1978 Hepatitis A Vaccines (1 of 2 - Risk 2-dose series) 1985 Pneumococcal Vaccine: 50+ Years (1 of 2 - PCV) 1985 SDOH Screening 04/01/2024 04/01/2023 FOBT 04/25/2024 04/25/2023 Depression Screening 09/11/2024 09/12/2023, 09/12/19 24 Diabetes: Hemoglobin A1C 09/11/2024 024, 09/08/2022, 06/11/2021, Additional history exists COVID-19 Vaccine ( season) 2024 09/12/2023, 03/20/2021, 07/08/2020, Additional history exists Influenza Vaccine (#1) 2024 , 06/24/2021, 05/14/2020, Additional history exists Tobacco Screening 01/10/2026 01/10/2025 Colorectal Cancer Screening 04/25/2026 FIT DNA/Cologuard 04/25/2026 04/25/2023 Lipid Panel 09/11/2028 09/12/2023, 07/0 07/2022, 06/11/2021, Additional history exists DTaP/Tdap/Td Vaccines (3 - Td or Tdap) 03/19/2033 03/19/2023, 08/30/2013 RSV Patients and Patients Aged 60 years or older (1 - 1-dose 75+ series) 2041 Hepatitis B Vaccines Completed 04/15/2005, 10/20/2004, 09/16/2004 Zoster Vaccines Completed 10/14/2021, 06/24/2021 HIV Screening Completed 09/08/2022 HIB Vaccines Aged Out [...] Procedure Name Priority Date/Time Associated Diagnosis Comments HEMATOXYLIN AND EOSIN STAIN Routine 12/31/2024 2:42 PM EDT HEMOGLOBIN A1C Routine 09/12/2023 4:22 PM EDT Prediabetes LIPID PANEL WITH REFLEX TO DIRECT LDL Routine 09/12/2023 4:22 PM EDT Prediabetes LAB COLOGUARD COLON CANCER SCREEN Routine 04/25/2023 8:04 PM EST Colon cancer screening HIV ANTIBODY/ANTIGEN ([place] DPH) Routine 09/08/2022 11:27 AM EDT from Last 3 Months or Most Recently Relevant to Health Maintenance Results * Hematoxylin and Eosin Stain (12/31/2024 2:42 PM EDT) 12/31/2024 2:42 PM EDT 01/01/2025 7:26 AM EDT [facility] - 01/02/2025 5:40 PM EDT ----- ------- Name: Jose Maria Xie Age/Sex: 59/M : 1965 Unit#: [id number] Attend Dr: Landon Pierson MD Re12/31/24 Status: [facility] Location: [facility] Disch: ----- ------- SPEC : [id number] RECD: 01/01/25 STATUS: CARLEE ORTEZ NUM: [id number] LISY: 12/31/242 [facility] [address]: Landon Pierson MD ENTERED: 01/01/25 SP TYPE: Surgical OTHR DR: Daniela Sinclair MD ORDERED: HE Stain/48, Prostate biopsy Diagnosis Prostate, needle core biopsies: A. F 3.0: Benign prostatic tissue. B. E 3.5: Benign prostatic tissue. C. E 2.5: Benign prostatic tissue. D. E 2.0: Benign prostatic tissue. E. E 4.0: Benign prostatic tissue. F. E 3.0: Benign prostatic tissue. G. E 2.0: Benign prostatic tissue. H. E 1.5: Benign prostatic tissue. I. D 2.5: Benign prostatic tissue. J. C 4.0: Benign prostatic tissue. K. C 3.0: Benign prostatic tissue. L. C 2.0: Benign prostatic tissue. M. B 3.5: Benign prostatic tissue. N. B. 1.5: Benign prostatic tissue. O. B 2.5: Benign prostatic tissue. P. B 1.5: Benign prostatic tissue. Comment: Scattered foci of acute and chronic inflammation noted. Clinical History Elevated PSA CONTINUED ON NEXT PAGE ----- ------- Name: Jose Maria Xie Age/Sex: 59/M : 1965 Unit#: [id number] Attend Dr: Landon Pierson MD Re12/31/24 Status: [facility] Location: [facility] Disch: ----- ------- SPEC : [id number] RECD: 01/01/25 STATUS: CARLEE ORTEZ NUM: [id number] LISY: 12/31/241442 [facility] DR: Landon Pierson MD ENTERED: 01/01/250743 TYPE: Surgical OTHR DR: Daniela Sinclair MD ORDERED: HE Stain/48, Prostate biopsy Microscopic Description Microscopic sections reviewed. Material Received A. F 3.0 B. E 3.5 C. E 2.5 D. E 2.0 E. E 4.0 F. E 3.0 G. E 2.0 H. E 1.5 I. D 2.5 J. C 4.0 K. C 3.0 L. C 2.0 M. B 3.5 N. B. 1.5 O. B 2.5 P. B 1.5 Gross Description Received in 16 parts. A. Received in formalin labeled F3.0 is a cylindrical portion of white soft tissue measuring 1.1 cm in length with a diameter of 0.02 cm which is entirely submitted for microscopic examination, 1 piece in cassette A. B. Received in formalin labeled e3.5 is a cylindrical portion of white soft tissue measuring 1.1 cm in length with a diameter of 0.02 cm which is entirely submitted for microscopic examination, 1 piece in cassette B. C. Received in formalin labeled e2.5 is a cylindrical portion of white soft tissue measuring 0.7 cm in length with a diameter of 0.02 cm which is entirely submitted for microscopic examination, 1 piece in cassette C. D. Received in formalin labeled e2.0 is a cylindrical portion of white soft tissue measuring 1.4 cm in length with a diameter of 0.02 cm which is entirely submitted for microscopic examination, 1 piece in cassette D. E. Received in formalin labeled E4.0 is a cylindrical portion of white soft tissue CONTINUED ON NEXT PAGE ----- ------- Name: XieJose Maria Age/Sex: 59/M : 1965 Unit#: [id number] Attend Dr: Landon Pierson MD Re12/31/24 Status: DEP SDC Location: [facility] Disch: ----- ------- SPEC : [id number] RECD: 01/01/25 STATUS: CARLEE ORTEZ NUM: [id number] LISY: 12/31/24 [facility] DR: Landon Pierson MD ENTERED: 01/01/25 SP TYPE: Surgical OTHR DR: Daniela Sinclair MD ORDERED: HE Stain/48, Prostate biopsy Gross Description (Continued) measuring 1.6 cm in length with a diameter of 0.02 cm which is entirely submitted for microscopic examination, 1 piece in cassette E. F. Received in formalin labeled E3.0 is a cylindrical portion of white soft tissue measuring 1.8 cm in length with a diameter of 0.02 cm which is entirely submitted for microscopic examination, 1 piece in cassette F. G. Received in formalin labeled E2.0 is a cylindrical portion of white soft tissue measuring 1.5 cm in length with a diameter of 0.02 cm which is entirely submitted for microscopic examination, 1 piece in cassette G. H. Received in formalin labeled E1.5 is a cylindrical portion of white soft tissue measuring 1.5 cm in length with a diameter of 0.02 cm which is entirely submitted for microscopic examination, 1 piece in cassette H. I. Received in formalin labeled d2.5 is a cylindrical portion of white soft tissue measuring 1.6 cm in length with a diameter of 0.02 cm which is entirely submitted for microscopic examination, 1 piece in cassette I. J. Received in formalin labeled C4.0 is a cylindrical portion of white soft tissue measuring 1.6 cm in length with a diameter of 0.02 cm which is entirely submitted for microscopic examination, 1 piece in cassette J. K. Received in formalin labeled C3.0 is a cylindrical portion of white soft tissue measuring 1.5 cm in length with a diameter of 0.02 cm which is entirely submitted for microscopic examination, 1 piece in cassette K. L. Received in formalin labeled C2.0 is a cylindrical portion of white soft tissue measuring 1.3 cm in length with a diameter of 0.02 cm which is entirely submitted for microscopic examination, 1 piece in cassette L. M. Received in formalin labeled b3.5 is a cylindrical portion of white soft tissue measuring 1.4 cm in length with a diameter of 0.02 cm which is entirely submitted for microscopic examination, 1 piece in cassette M. N. Received in formalin labeled b1.5 is a cylindrical portion of white soft tissue measuring 1.5 cm in length with a diameter of 0.02 cm which is entirely submitted for microscopic examination, 1 piece in cassette N. 0. Received in formalin labeled B2.5 are 2 cylindrical portions of white soft tissue measuring 0.5 and 0.9 cm in length, both with a diameter of 0.02 cm, which are entirely submitted for microscopic examination, 2 pieces in cassette 0. CONTINUED ON NEXT PAGE ----- ------- Name: Jose Maria Xie Age/Sex: 59/M : 1965 Unit#: [id number] Attend Dr: Landon Pierson MD Re12/31/24 Status: [facility] Location: [facility] Disch: ----- ------- SPEC : [id number] RECD: 01/01/25 STATUS: CARLEE ORTEZ NUM: [id number] LISY: 12/31/241442 [facility] DR: Landon Pierson MD ENTERED: 01/01/251669 SP TYPE: Surgical OTHR DR: Daniela Sinclair MD ORDERED: HE Stain/48, Prostate biopsy Gross Description (Continued) P. Received in formalin labeled B1.5 is a cylindrical portion of white soft tissue measuring 0.7 cm in length with a diameter of 0.02 cm which is entirely submitted for microscopic examination, 1 piece in cassette P. ([facility]) This case was reviewed intradepartmentally. IHC S/NG Disclaimer NOTE: Unless otherwise stated, all tissue is formalin-fixed and paraffin-embedded. Some or all of the immunohistochemical tests reported herein may have been developed and their performance characteristics determined by [facility]. They have not been cleared or approved by the U.S. Food and Drug Administration (FDA). However, the FDA has determined that such clearance or approval is not necessary. This laboratory is certified under the Clinical Laboratory Improvement Amendments of 1988 (CLIA) as qualified to perform high complexity clinical laboratory testing. Copies To: Daniela Sinclair MD [address] [id number] Landon Pierson MD [facility] [address] [place] [address] ----- ------- Signed (signature on file) Ami Casimiro 01/02/25 1740 ----- ------- END OF REPORT us Generic External Data Provider LAB BLOOD ORDERAB LES Final Result [facility] [address] [place] [address] [phone] * (ABNORMAL) Lipid Panel with Reflex to Direct LDL (09/12/2023 4:22 PM EDT) Triglycerides 118 <150 mg/dL [facility] Comment:Desirable Triglyceri de: less than 150 mg/dLBorderline High Triglyceride 150-199 mg/dLHigh Triglyceride: 200-499 mg/dLVery High Triglyceride: greater than or equal to 5OO mg/dL Cholesterol 239(H) <200 mg/dL [facility] Comment:Desirable Cholestero l: less than 200 mg/dLBorderline High Cholesterol: 200-239 mg/dLHigh Cholesterol: greater than 239 mg/dL LDL Cholesterol Calculated 157(H) <100 mg/dL [facility] Comment:Desirable LDL: less than 100 mg/dLNear Optimal/Above Optimal LDL: 110- 129 mg/dLBorderline High LDL: 130-159 mg/dLHigh LDL: 160-189 mg/dLVery High LDL: greater than or equal to 190 mg/dL HDL Cholesterol 59 >40 mg/dL [facility] Comment:Desirable HDL: great er than 40 mg/dL Note: This HDL assay may give artificially low results in patients with liver disease. Blood 09/12/2023 4:22 PM EDT 09/12/2023 5:39 PM EDT us Daniela Carreon MD LAB BLOOD ORDERABLES Final Result [facility] [address] [place] [address] [phone] * Hemoglobin A1c (09/12/2023 4:22 PM EDT) Hemoglobin A1c 5.7 <6.0 % [facility] Comment:Hemoglobin A1C Refer ence Range Adults: 4.8 - 6.0 % Non diabetic: < 6.0 % Goal: < 7.0 %Additional Action Suggested: > 8.0 %Note: Hemoglobin A1c results are invalid for patients with abnormal amounts of HbF. Blood transfusions may impact the HbA1c concentration in the patient sample. Estimated Average Glucose 117 mg/dL [facility] Comment:eAG = Estimated ave rage glucose which is %A1C expressed asaverage glucose, using the formula of the U9G-HuctkjoIlhpftx Glucose study (ADAG), Diabetes Care, Vol.31,#8,Oct. 2007 Blood Venous blood specimen / Unknown 09/12/2023 4:22 PM EDT 09/12/2023 5:40 PM EDT Daniela Carreon MD LAB BLOOD ORDERABLES Final Result [facility] [address] [place] [phone] * Cologuard?? colon cancer screening (04/25/2023 8:04 PM EST) Cologuard Result Negative Negative 05/04/19 24 1:53 AM EST [facility] (CLIA #:[id number]) Comment: NEGATIVE TEST RESULT. A negative Cologuard [...] (Hailey Barth al, N Engl J Med 2014;370(14):3508-3754) The normal value (reference range) for this assay is negative. COLOGUARD RE-SCREENING RECOMMENDATION: Periodic colorectal cancer screening is an important part of preventive healthcare for asymptomatic individuals at average risk for colorectal cancer. Following a negative Cologuard result, the [place] [employer] and U.S. Multi-Society Task Force screening guidelines recommend a Cologuard re-screening interval of 3 years. References: [place] [employer] Guideline for Colorectal Cancer Screening: https://www.cancer.org/cancer/paoyb-cihcig-tphrud/rximmszel-npgcnokcr-qxtyrxm/ac s-rec ommendations.html.; Dyllan DK, Myrna BARKER, Irene SanchezK, Colorectal Cancer Screening: Recommendations for Physicians and Patients from the U.S. Multi-Society Task Force on Colorectal Cancer Screening , Am J Gastroenterology 2017; 112:9568-9227. TEST DESCRIPTION: Composite algorithmic analysis of stool [...] (Hailey Barth al, N Engl J Med 2014;370(14):4307-7575.) Cologuard may produce a false negative or false positive result (no colorectal cancer or precancerous polyp present at colonoscopy follow up). A negative Cologuard test result does not guarantee the absence of CRC or advanced adenoma (pre-cancer). The current Cologuard screening interval is every 3 years. ([place] [employer] and U.S. Multi-Society Task Force). Cologuard performance data in a 10,000 patient pivotal study using colonoscopy as the reference method can be accessed at the following location: www.OUYA.com/results. Additional description of the Cologuard test process, warnings and precautions can be found at www.colN-Sidedrd.com. Stool specimen (specimen) 04/25/2023 8:04 PM EST 04/27/2023 1:47 PM EST Daniela Carreon MD LAB MOLECULAR DIAGNOS TICS ORDERABLES Final Result [facility] (CLIA #:[id number]) [place] [address], * HIV Ab/Ag (DEBRA MIMS) (09/08/2022 11:27 AM EDT) [facility] HIV AB/AG Nonreactive Nonreactive [facility] Comment:HIV-1 p24 Ag and/or HIV-1/HIV-2 Ab not detected.A test result that is nonreactive does not exclude thepossibility of exposure to or infection with HIV-1 and/orHIV-2. Nonreactive results in this assay for individualswith prior exposure to HIV-1 and/or HIV-2 may be due toantigen and antibody levels that are below the limit ofdetection of this assay.The Allison Ballet Professor HIV Ag/Ab Combo assay result andsupplemental assay results should be interpreted inconjunction with the patient's clinical presentation,history and other laboratory results. If the results areinconsistent with clinical evidence, additional testing issuggested to confirm the result. 09/08/2022 11:2 7 AM EDT 09/08/2022 11:27 AM EDT [facility] External Provider LAB BLO OD ORDERABLES Final Result Performing Organization Address City/[facility] [address]/ZIP Co de Phone Number [facility] [address] [place] [address] [phone] from Last 3 Months or Most Recently Relevant to Health Maintenance Insurance Care Teams Operation Specialist Relationship Specialty Start Date End Date Daniela Sinclair MD [address] [place] [address] PCP - General Family Medicine 11/16/17
--- OUTSIDE RECORDS SUMMARY | 2025-01-11 15:51 | XMS_ITS | Encounter Summary ---
Author Organization [employer] Address [address] [place] [address] Care Team Providers Care Complex Care Nurse Practitioner Name Role Phone Daniela Sinclair MD Primary Care Provide r Encounter Details Date Type Department Care Team (Latest Contact Info) Description 01/10/2025 Travel Social History Tobacco Use Types Packs/Day Years Used Date Smoking Tobacco: Never Passive Smoke Exposure: Never Smokeless Tobacco: Never Alcohol Use Standard Drinks/Week Comments Never 0 [...] AM EDT documented as of this encounter Plan of Treatment Upcoming Encounters Date Type Department Care Team (Late st Contact Info) Description 03/20/2025 11:15 AM EST Office Visit [facility] [address] [place] [address] Daniela Sinclair MD [address] [place] [address] documented as of this encounter Visit Diagnoses Not on filedocumented in this encounter Additional Health Concerns Assessment Noted Time PHQ-9 Depression Total Score: 0 09/12/19 24 3:54 PM EDT documented as of this encounter Care Teams Complex Care Nurse Practitioner Relationship Specialty Start Date End Date Daniela Sinclair MD [address] [place] [phone] PCP - General Family Medicine 11/16/17 documented as of this encounter
== END 2025-01-11 14:51 | disposition home or self-care (01) ==
LOC: HO.HUSH 14:04
PROVIDERS: PCP Internal Medicine; Visit Provider Urology
DX: R97.20 Elevated prostate specific antigen [PSA] (principal); N40.0 Benign prostatic hyperplasia without lower urinary tract symptoms
CPT/HCPCS: 99213; G2211